=== PATIENT | male | born 1945 | race Caucasian/White ===

== ENCOUNTER 2017-09-18 09:56 | Inpatient (IN) ==
--- NOTE | 2017-09-18 10:07 | Emergency Department Note ---
Disposition Clinical Impression: History of cirrhosis, Hyperammonemia, Hepatic encephalopathy Altered mental status Qualifiers: Altered mental status type: unspecified Qualified Code(s): R41.82 - Altered mental status, unspecified Disposition: Admitted As Inpatient Condition: Good Time of Disposition: 12:02 Altered Mental Status HPI - General Chief Complaint: ED Altered Mental Status Stated Complaint: AMS Time Seen by Provider: 09/18/17 09:56 Source: patient, EMS Mode of arrival: EMS Limitations: no limitations Nursing Notes Reviewed: Yes Vital Signs Reviewed: Yes - History of Present Illness HPI Narrative: Patient is a 71-year-old male with past medical history of hypertension, hyperlipidemia, A. fib, previous CVA and TIA, cirrhosis and takes lactulose for hyperammonemia, dementia. He presents today via EMS from [facility] due to altered mental status. EMS states the patient is usually alert and oriented 3. However, today, he was not acting himself, oriented to person and place only, irritating on the floor, seemed infused above his baseline with dementia. The patient himself denies any chest pain, shortness of breath, abdominal pain. He did admit to nausea and vomiting but no diarrhea. No blood in vomit or stool. Denies any numbness, tingling, focal weakness. He does admit to generalized fatigue. He states that he feels somewhat similar to when ammonia levels have been high in the past. He does state that his nurse practitioner told him this morning that his ammonia level was high. He takes lactulose currently for high ammonia levels. Denies any recent falls. - Related Data Home Medications Medication Instructions Recorded Confirmed Cetirizine HCl [Zyrtec] 10 mg PO DAILY 03/25/15 09/18/17 Cyanocobalamin (B-12) [Vitamin B12] 1,000 mcg IM QMONTH 02/17/16 09/18/17 Ferrous Sulfate [Iron] 325 mg PO TID 02/17/16 09/18/17 Levothyroxine [Synthroid] 150 mcg PO DAILY 02/17/16 09/18/17 Levothyroxine [Synthroid] 175 mcg PO DAILY 02/17/16 09/18/17 Aspirin Enteric Coated [Aspirin EC] 81 mg PO DAILY 08/29/17 09/18/17 Cholecalciferol (D-3) [Vitamin D] 1,000 unit PO DAILY 08/29/17 09/18/17 Lactulose [Enulose] 30 ml PO TID 08/29/17 09/18/17 LevETIRAcetam [Keppra] 750 mg PO BID 08/29/17 09/18/17 Metoprolol Succinate [Toprol Xl] 12.5 mg PO BID 08/29/17 09/18/17 Omeprazole [PriLOSEC] 20 mg PO DAILY 08/29/17 09/18/17 Spironolactone [Aldactone] 75 mg PO BID 08/29/17 09/18/17 Sucralfate [Carafate] 1 gm PO QID 09/18/17 09/18/17 Previous Rx's Medication Instructions Recorded Furosemide [Lasix] 80 mg PO QAM #30 tablet 09/10/17 Rifaximin [Xifaxan] 550 mg PO BID #60 tablet 09/10/17 Allergies Allergy/AdvReac Type Severity Reaction Status Date / Time azithromycin Allergy Anaphylaxis Verified 03/25/15 14:56 ceftriaxone Allergy Anaphylaxis Verified 03/25/15 14:56 gabapentin Allergy Anaphylaxis Verified 03/25/15 14:56 All systems ED: reviewed and negative except as stated. Constitutional: Denies: fever Cardiovascular: Denies: chest pain Respiratory: Denies: cough, dyspnea Gastrointestinal: Reports: nausea, vomiting. Denies: abdominal pain, diarrhea, constipation, hematemesis, melena, hematochezia Genitourinary: Reports: frequency, other (Urinating on floor). Denies: urgency , dysuria Musculoskeletal: Denies: back pain, neck pain, arthralgia, myalgia Integumentary: Denies: rash, abrasion, lesions Neurological: Reports: other (AMS). Denies: headache, weakness, numbness, paresthesias, confusion Past Medical History - Past Medical History Attestation: Yes The following information was validated with the patient. Source: patient Medical history: Reports: arthritis, atrial fibrillation, cirrhosis, CHF, COPD, coronary artery disease, CVA, dementia, GERD, GI bleed, hyperlipidemia, hypertension, myocardial infarction, osteoporosis, pulmonary embolus, renal disease, seizures, thyroid disease, syncope, other Surgical history: Reports: angioplasty/stent, coronary bypass (CABG), pacemaker/ AICD, other Psychiatric history: Reports: no psych history, other - Social History Smoking Status: Never smoker Smokeless Tobacco Status: No Alcohol use: Reports: none Drug use: Reports: none Physical Exam - General Limitations: other (dementia) General appearance: alert, in no apparent distress, other (slow to answer questions) - Head Head exam: atraumatic, normocephalic, normal inspection - Eye Eye exam: Present: normal appearance, PERRL, EOMI - ENT ENT exam: normal exam, normal oropharynx, mucous membranes moist - Neck Neck exam: Present: normal inspection, full ROM, trachea midline. Absent: tenderness - Chest Chest inspection: Present: normal inspection, symmetric chest wall rise - Respiratory Respiratory exam: Present: normal lung sounds bilaterally - Cardiovascular Cardiovascular exam: Present: regular rate, normal rhythm, normal heart sounds - Abdominal Exam Abdominal exam: Present: soft, Non-Tender. Absent: tenderness, distention, guarding, rebound, rigidity - Extremities Exam Extremities exam: Present: normal inspection, full ROM. Absent: tenderness, pedal edema - Neurological Exam Neurological exam: Present: alert, other (Oriented to person and place but not time. Very slow to answer questions but does eventually answer them appropriately.) - Expanded Neurological Exam Patient oriented to: Present: person, place. Absent: time Speech: Present: fluid speech Cranial nerves: EOM function (II, III, IV, ): Normal, facial sensation (V): Normal, facial palsy (VII): Normal, spinal accessory function (XI): Normal, tongue deviation (XII): Normal Motor strength - LUE: 4/5 Motor strength - RUE: 4/5 Motor strength - LLE: 4/5 Motor strength - RLE: 4/5 Sensory exam upper extremity: light touch: Normal Sensory exam lower extremity: light touch: Normal Coma Scale Eye Opening: Spontaneous Coma Scale Motor Response: Obeys Commands Coma Scale Verbal Response: Confused Coma Scale Total: 14 - Psychiatric Psychiatric exam: Present: normal mood, flat affect - Skin Skin exam: Present: warm, dry, intact, other (slight jaundice) Course Course Narrative: Patient currently oriented to person and place only but not time. This is different from his usual baseline according to EMS. Patient has generalized fatigue, is very slow to answer questions. No focal weaknesses appreciated on physical exam. States that he has high ammonia levels. Currently on lactulose 3 times a day. We will obtain altered mental status workup including head CT, basic blood work, LFTs, ammonia level, urinalysis, EKG, troponin. 11:02 labs show leukopenia, acute kidney injury, mild elevation in AST. UA negative. Chest x-ray negative for any acute cardio pulmonary process. Currently waiting on ammonia level and CT the head. 12:00 CT the head was negative. Ammonia was elevated, highest that it has been in the past. We will need to admit to the hospitalist for further care due to worsening mental status, hyperammonemia, concern for hepatic encehpalopathy. Chest X-Ray 09/18/17 10:03 IMPRESSION: Stable exam. No acute cardiopulmonary findings. D/ / Suzette Scales MD / Suzette Scales MD Interpreting Provider: Suzette Scales MD Vital Signs Temperature 97.9 F 09/18/17 09:58 Pulse Rate 75 09/18/17 09:58 Respiratory Rate 14 09/18/17 09:58 Blood Pressure 150/76 09/18/17 09:58 O2 Sat by Pulse Oximetry 98 09/18/17 09:58 Temperature 97.9 F 09/18/17 15:09 Pulse Rate 63 09/18/17 15:09 Respiratory Rate 16 09/18/17 15:09 Blood Pressure 126/75 09/18/17 15:09 O2 Sat by Pulse Oximetry 94 09/18/17 15:09 Oxygen Delivery Oxygen Delivery Room Air Altered Mental Status - MDM Narrative Medical decision making narrative: Patient currently oriented to person and place only but not time. This is different from his usual baseline according to EMS. Patient has generalized fatigue, is very slow to answer questions. No focal weaknesses appreciated on physical exam. States that he has high ammonia levels. Currently on lactulose 3 times a day. We will obtain altered mental status workup including head CT, basic blood work, LFTs, ammonia level, urinalysis, EKG, troponin. 11:02 labs show leukopenia, acute kidney injury, mild elevation in AST. UA negative. Chest x-ray negative for any acute cardio pulmonary process. Currently waiting on ammonia level and CT the head. 12:00 CT the head was negative. Ammonia was elevated, highest that it has been in the past. We will need to admit to the hospitalist for further care due to worsening mental status, hyperammonemia, concern for hepatic encehpalopathy. - Medical Records Medical records reviewed: Yes I reviewed the patient's medical records. - Lab Data Lab results reviewed: Yes I reviewed the patient's lab results. Result diagrams: 09/18/17 10:17 09/18/17 10:17 Lab Results 09/18/17 09/18/17 09/18/17 Range/Units 10:11 10:17 10:17 WBC 3.2 L (4.3-11.1) K/mcL RBC 4.17 L (4.19-5.50) M/mcL Hgb 13.3 (12.9-16.9) g/dL Hct 37.3 L (37.5-50.1) % MCV 89.4 (83.0-100.0) fL MCH 31.9 (28.0-33.3) pg MCHC 35.7 H (31.6-35.5) g/dL RDW 17.5 H (11.5-14.5) % Plt Count 219 (140-400) K/mcL MPV 9.2 L (9.4-12.4) fL Immature Gran % 0.3 (0-4) % Seg Neutrophils % 42.6 % Lymphocytes % 27.3 % Monocytes % 21.3 % Eosinophils % 6.9 % Basophils % 1.6 % Neutrophils # 1.4 L (1.6-8.9) K/mcL Lymphocytes # 0.9 (0.6-4.6) K/mcL Monocytes # 0.7 (0.0-1.3) K/mcL Eosinophils # 0.2 (0.0-0.6) K/mcL Basophils # 0.1 (0.0-0.2) K/mcL Platelet Estimate Normal (Normal) PT 14.1 H (9.4-12.1) Seconds INR 1.3 APTT 39.6 H (26.0-36.0) Seconds Sodium (136-145) mEq/L Potassium (3.5-5.1) mEq/L Chloride (98-107) mEq/L Carbon Dioxide (23-29) mEq/L BUN (8-23) mg/dL Creatinine (0.70-1.30) mg/dL Est GFR ( Amer) (> 60) Est GFR (Non-Af Amer) (> 60) BUN/Creatinine Ratio (6-26) Glucose (70-105) mg/dL Calculated Osmolality (280-300) Calcium (8.6-10.3) mg/dL Total Bilirubin (0.3-1.0) mg/dL Direct Bilirubin (0.0-0.2) mg/dL Indirect Bilirubin (0.0-1.2) mg/dL AST (13-39) Units/L ALT (7-52) Units/L Alkaline Phosphatase (34-104) Units/L Ammonia (16-53) mcmol/L Troponin I (< 0.04) ng/mL Serum Total Protein (6.4-8.9) g/dL Albumin (3.5-5.7) g/dL Globulin (2.4-3.5) g/dL Albumin/Globulin Ratio (1.1-2.2) TSH (0.340-5.600) mcIU/mL Urine Color Yellow (Yellow) Urine Clarity Clear (Clear) Urine pH 6.5 (5.0-8.0) pH Units Ur Specific [place] 1.020 (1.010-1.025) Urine Protein Negative (Neg-Trace) mg/dL Urine Glucose (UA) Normal (Normal) mg/dL Urine Ketones Negative (Negative) mg/dL Urine Blood Negative (Negative) Urine Nitrite Negative (Negative) Urine Bilirubin Negative (Negative) Urine Urobilinogen Normal (Normal) mg/dL Ur Leukocyte Esterase Negative (Negative) Ur Culture Indicated? NO (NO) 09/18/17 09/18/17 Range/Units 10:17 10:50 WBC (4.3-11.1) K/mcL RBC (4.19-5.50) M/mcL Hgb (12.9-16.9) g/dL Hct (37.5-50.1) % MCV (83.0-100.0) fL MCH (28.0-33.3) pg MCHC (31.6-35.5) g/dL RDW (11.5-14.5) % Plt Count (140-400) K/mcL MPV (9.4-12.4) fL Immature Gran % (0-4) % Seg Neutrophils % % Lymphocytes % % Monocytes % % Eosinophils % % Basophils % % Neutrophils # (1.6-8.9) K/mcL Lymphocytes # (0.6-4.6) K/mcL Monocytes # (0.0-1.3) K/mcL Eosinophils # (0.0-0.6) K/mcL Basophils # (0.0-0.2) K/mcL Platelet Estimate (Normal) PT (9.4-12.1) Seconds INR APTT (26.0-36.0) Seconds Sodium 132 L (136-145) mEq/L Potassium 4.7 (3.5-5.1) mEq/L Chloride 103 (98-107) mEq/L Carbon Dioxide 20 L (23-29) mEq/L BUN 36 H (8-23) mg/dL Creatinine 1.33 H (0.70-1.30) mg/dL Est GFR ( Amer) > 60 (> 60) Est GFR (Non-Af Amer) 53 L (> 60) BUN/Creatinine Ratio 27 H (6-26) Glucose 122 H (70-105) mg/dL Calculated Osmolality 284 (280-300) Calcium 9.8 (8.6-10.3) mg/dL Total Bilirubin 1.3 H (0.3-1.0) mg/dL Direct Bilirubin 0.3 H (0.0-0.2) mg/dL Indirect Bilirubin 1.0 (0.0-1.2) mg/dL AST 52 H (13-39) Units/L ALT 38 (7-52) Units/L Alkaline Phosphatase 91 (34-104) Units/L Ammonia 123 H (16-53) mcmol/L Troponin I < 0.03 (< 0.04) ng/mL Serum Total Protein 8.4 (6.4-8.9) g/dL Albumin 3.7 (3.5-5.7) g/dL Globulin 4.7 H (2.4-3.5) g/dL Albumin/Globulin Ratio 0.8 L (1.1-2.2) TSH 0.157 L (0.340-5.600) mcIU/mL Urine Color (Yellow) Urine Clarity (Clear) Urine pH (5.0-8.0) pH Units Ur Specific [place] (1.010-1.025) Urine Protein (Neg-Trace) mg/dL Urine Glucose (UA) (Normal) mg/dL Urine Ketones (Negative) mg/dL Urine Blood (Negative) Urine Nitrite (Negative) Urine Bilirubin (Negative) Urine Urobilinogen (Normal) mg/dL Ur Leukocyte Esterase (Negative) Ur Culture Indicated? (NO) - Radiology Data Radiology results reviewed: Yes I reviewed the patient's radiology results. - EKG Data EKG attestation: Yes I reviewed and interpreted this EKG. EKG results narrative: 09/18/2017 at 10:02. Normal sinus rhythm. Rate 77. WA 175. QRS 108. QTC 386. Normal axis. ST elevation in 2, 3, aVF that is unchanged from previous EKG on 08/29/2017. Otherwise, no acute ST elevation or depression. S.B.A.R. - S.B.A.RKadi Situation: Demographics, MOA Background: Presenting Complaint, Relevant PMH, Meds, & Allergies Assessment: Vital Signs, Course and respsone to treatment, Exam Concerns, Patient/Family Expectation, Pertinant Lab Results Recommendation: Barrier(s) to disposition, Recommendation based on pending studies, treatments, or consults S.B.A.R. Report Given to: Dr. Muriel HallBKadiARicki Repor Time: 12:50 Attestation Statement - Attestation Attestation: I examined this patient and my medical decision-making was reviewed with the Resident Physician. I agree with the documented findings, disposition and treatment plan as described except to the extent set forth below. Findings consistent with hepatic encephalopathy with elevated ammonia. We will give lactulose, admit for further management.
[2017-09-18 10:35] LABS: Basophils # 0.1 K/mcL (0.0-0.2); Basophils % 1.6 %; Eosinophils # 0.2 K/mcL (0.0-0.6); Eosinophils % 6.9 %; Hematocrit 37.3 % (37.5-50.1); Hemoglobin 13.3 g/dL (12.9-16.9); Immature Granulocytes % 0.3 % (0-4); Lymphocytes # 0.9 K/mcL (0.6-4.6); Lymphocytes % 27.3 %; Mean Corpuscular HGB Conc 35.7 g/dL (31.6-35.5); Mean Corpuscular Hemoglobin 31.9 pg (28.0-33.3); Mean Corpuscular Volume 89.4 fL (83.0-100.0); Mean Platelet Volume 9.2 fL (9.4-12.4); Monocytes # 0.7 K/mcL (0.0-1.3); Monocytes % 21.3 %; Neutrophils # 1.4 K/mcL (1.6-8.9); Platelet Count 219 K/mcL (140-400); Red Blood Count 4.17 M/mcL (4.19-5.50); Red Cell Distribution Width 17.5 % (11.5-14.5); Segmented Neutrophils % 42.6 %
[2017-09-18 10:37] LABS: Bilirubin,Urine Negative (Negative); Blood,Urine Negative (Negative); Clarity,Urine Clear (Clear); Color,Urine Yellow (Yellow); Glucose,Urine (UA) Normal (Normal); Ketones,Urine Negative (Negative); Leukocyte Esterase,Urine Negative (Negative); Nitrite,Urine Negative (Negative); PH,Urine 6.5 pH Units (5.0-8.0); Protein,Urine Negative (Neg-Trace); Urobilinogen,Urine Normal (Normal)
[2017-09-18 10:43] LABS: INR 1.3; Prothrombin Time 14.1 Seconds (9.4-12.1)
[2017-09-18 10:46] LABS: Activated Partial Thrombo Time 39.6 Seconds (26.0-36.0)
[2017-09-18 10:56] LABS: Troponin I < 0.03 ng/mL (< 0.04)
[2017-09-18 11:00] LABS: Alanine Aminotransferase 38 Units/L (7-52); Albumin 3.7 g/dL (3.5-5.7); Albumin/Globulin Ratio 0.8 (1.1-2.2); Alkaline Phosphatase 91 Units/L (34-104); Aspartate Amino Transferase 52 Units/L (13-39); BUN/Creatinine Ratio 27 (6-26); Bilirubin,Direct 0.3 mg/dL (0.0-0.2); Bilirubin,Total 1.3 mg/dL (0.3-1.0); Blood Urea Nitrogen 36 mg/dL (8-23); Calcium 9.8 mg/dL (8.6-10.3); Carbon Dioxide 20 mEq/L (23-29); Chloride 103 mEq/L (98-107); Globulin 4.7 g/dL (2.4-3.5); Glucose 122 mg/dL (70-105); Osmolality,Calculated 284 (280-300); Potassium 4.7 mEq/L (3.5-5.1); Sodium 132 mEq/L (136-145); Total Protein 8.4 g/dL (6.4-8.9); eGFR For Non-African Americans 53 (> 60)
[2017-09-18 11:10] LABS: Thyroid Stimulating Hormone 0.157 mcIU/mL (0.340-5.600)
[2017-09-18] MEDS ORDERED: 0.9 % Sodium Chloride 1,000 ML IVC ONE (11:28)
[2017-09-18 11:48] LABS: Platelet Estimate Normal (Normal)
[2017-09-18] MEDS ORDERED: Naloxone 0.4 MG/ML INJ IVP PRN (16:26)
[2017-09-18] MEDS ORDERED: 0.9 % Sodium Chloride 1,000 ML IVC SCH (16:30)
[2017-09-18] MEDS: Sucralfate 1 GM TABLET PO SCH ×2 (18:30→20:00)
[2017-09-18] MEDS: *HR* Heparin 5,000 UNIT/ML VIAL SQ SCH (18:30)
[2017-09-18] MEDS: levETIRAcetam 250 MG TABLET PO SCH (20:00)
[2017-09-18] MEDS: Metoprolol XL (24 HR) Succ 25 MG TAB.ER.24H PO SCH (20:01)
[2017-09-18] MEDS: Spironolactone 25 MG TABLET PO SCH (20:01)
--- NOTE | 2017-09-18 23:43 | Internal Med History&Physical ---
Date of Encounter: 09/18/17 Time of Encounter: 21:00 Internal Medicine - H&P: HPI Chief complaint: Altered mental status Admitted From: Long-term Nursing Facility Plans for Post Hospital Care: Home History of present illness: Mr. Moran is a 71 year old male. This patient was recently hospitalized here for altered mental status secondary to hepatic encephalopathy/acute kidney injury/dehydration. He was discharged to the [facility]. He comes to us with altered mental status, again. He developed this gradually for the last 2 or 3 days. He remembers my name (Dr. Martinez). He follows my commands. He seems to be drowsy. I can see that he was taking Lasix at 80 mg daily. They increased his lactulose to 30 mL 4 times a day. They also asking for fluid restriction. The patient seems to be dehydrated. His creatinine is increased, when compared to his previous hospitalization here. His ammonia level is 123. It is also higher than before. Denies chest pain. Denies abdominal pain, nausea and vomiting. He had 2 bowel movements yesterday. He had the one in the morning today. He has not seen any blood in his stools recently. Review of systems: All 14 organ systems were reviewed by me with the patient. Positive and pertinent negative findings are listed above. The rest of organ systems is negative. Assessment and plan: The patient has developed hepatic encephalopathy likely secondary to dehydration /acute kidney injury. Will give him 1 L of normal saline. We stopped his Lasix. His lactulose will be restarted tomorrow morning. I will offer him mild fluid restriction of 1800 mL per day. We will check his CBC, BMP, magnesium and ammonia tomorrow morning. Past Med Surg Social Fam HX - Past Medical History Medical history: arthritis, atrial fibrillation, cirrhosis, CHF, COPD, coronary artery disease, CVA, dementia, GERD, GI bleed, hyperlipidemia, hypertension, myocardial infarction, osteoporosis, pulmonary embolus, renal disease, seizures , thyroid disease, syncope, other Additional medical history: Lupus. PE. Carpal tunnel. Vit D deficiency. Bradycardia. Dizziness. Leukopenia. Sleep Apnea. Psychiatric history: no psych history, other - Past Surgical History Surgical History: angioplasty/stent, coronary bypass (CABG), pacemaker/AICD, other - Social History Smoking Status: Never smoker Smokeless Tobacco Status: No Alcohol use: none Drug use: none - Family History Daughter Family Member Ethnicity: Non- Living Status: Still Living Hx Family Endocrine Disorder: Yes Internal Medicine - H&P: Meds Cetirizine HCl [Zyrtec] 10 mg PO DAILY 03/25/15 [History] Cyanocobalamin (B-12) [Vitamin B12] 1,000 mcg IM QMONTH 02/17/16 [History] Ferrous Sulfate [Iron] 325 mg PO TID 02/17/16 [History] Levothyroxine [Synthroid] 150 mcg PO DAILY 02/17/16 [History] Levothyroxine [Synthroid] 175 mcg PO DAILY 02/17/16 [History] Aspirin Enteric Coated [Aspirin EC] 81 mg PO DAILY 08/29/17 [History] Cholecalciferol (D-3) [Vitamin D] 1,000 unit PO DAILY 08/29/17 [History] Lactulose [Enulose] 30 ml PO TID 08/29/17 [History] LevETIRAcetam [Keppra] 750 mg PO BID 08/29/17 [History] Metoprolol Succinate [Toprol Xl] 12.5 mg PO BID 08/29/17 [History] Omeprazole [PriLOSEC] 20 mg PO DAILY 08/29/17 [History] Spironolactone [Aldactone] 75 mg PO BID 08/29/17 [History] Furosemide [Lasix] 80 mg PO QAM #30 tablet 09/10/17 [Rx] Rifaximin [Xifaxan] 550 mg PO BID #60 tablet 09/10/17 [Rx] Sucralfate [Carafate] 1 gm PO QID 09/18/17 [History] 3 Allergy/AdvReac Type Severity Reaction Status Date / Time azithromycin Allergy Anaphylaxis Verified 03/25/15 14:56 ceftriaxone Allergy Anaphylaxis Verified 03/25/15 14:56 gabapentin Allergy Anaphylaxis Verified 03/25/15 14:56 All Systems PM: A 10-system review of systems was performed and is negative for pertinent findings except as documented above in the HPI. - Constitutional Vitals: Temp Pulse Resp BP Pulse Ox 98.0 F 65 15 103/60 98 09/18/17 23:01 09/18/17 23:01 09/18/17 23:01 09/18/17 23:01 09/18/17 23:01 - Other Additional findings: Skin: Free of rash and discoloration. Eyes: Sclera is white. There is no discharge from eyes. ENMT: Oral/pharyngeal mucosa is normal in appearance. There is no discharge from nose or ears. Respiratory: Normal breath sounds with no crackles and wheezes bilaterally. CV: Heart is regular with no gallop or murmur. GI: Abdomen is flat and soft with no palpable mass or visceromegaly. : There is no tenderness in patient's flanks bilaterally. Neuro exam: He has good strength in upper and lower extremities. He has normal eye movements. He is drowsy. He is sluggish with his verbal responses. Psychiatric: He has normal affect. His thought process is appropriate to the situation. Internal Med - H&P Results - Labs CBC & Chem 7: 09/18/17 10:17 09/18/17 10:17 - Assessment and plan (1) Hepatic encephalopathy Current Visit: No Status: Acute (2) Acute kidney injury Current Visit: No Status: Acute (3) Dehydration Current Visit: Yes Status: Acute (4) Weakness Current Visit: Yes Status: Acute - Time Spent With Patient Total time spent is greater than 50% in coordination of care (as documented) at patient's floor/unit and/or counseling patient:
[2017-09-19 04:15] LABS: Basophils % 1.5 %; Eosinophils # 0.2 K/mcL (0.0-0.6); Eosinophils % 7.6 %; Hematocrit 32.7 % (37.5-50.1); Immature Granulocytes % 0.4 % (0-4); Lymphocytes # 0.9 K/mcL (0.6-4.6); Lymphocytes % 30.9 %; Mean Corpuscular HGB Conc 33.6 g/dL (31.6-35.5); Mean Corpuscular Hemoglobin 30.6 pg (28.0-33.3); Mean Corpuscular Volume 91.1 fL (83.0-100.0); Mean Platelet Volume 9.1 fL (9.4-12.4); Monocytes # 0.6 K/mcL (0.0-1.3); Monocytes % 22.9 %; Platelet Count 172 K/mcL (140-400); Red Blood Count 3.59 M/mcL (4.19-5.50); Red Cell Distribution Width 17.7 % (11.5-14.5); Segmented Neutrophils % 36.7 %
[2017-09-19 04:33] LABS: BUN/Creatinine Ratio 27 (6-26); Blood Urea Nitrogen 35 mg/dL (8-23); Carbon Dioxide 19 mEq/L (23-29); Chloride 107 mEq/L (98-107); Glucose 91 mg/dL (70-105); Magnesium 2.1 mg/dL (1.6-2.6); Osmolality,Calculated 284 (280-300); Sodium 133 mEq/L (136-145); eGFR For Non-African Americans 55 (> 60)
[2017-09-19 04:48] LABS: Platelet Estimate Normal (Normal)
[2017-09-19] MEDS: *HR* Heparin 5,000 UNIT/ML VIAL SQ SCH ×2 (05:38→17:41)
[2017-09-19] MEDS: Spironolactone 25 MG TABLET PO SCH ×2 (07:39→20:28)
[2017-09-19] MEDS: Aspirin Enteric Coated 81 MG Tablet PO SCH (07:40)
[2017-09-19] MEDS: Lactulose Oral Soln 20 GM/30 ML UDC PO SCH ×3 (07:40→20:28)
[2017-09-19] MEDS: Sucralfate 1 GM TABLET PO SCH ×4 (07:40→20:28)
[2017-09-19] MEDS: Loratadine 10 MG TABLET PO SCH (07:40)
[2017-09-19] MEDS: levETIRAcetam 250 MG TABLET PO SCH ×2 (07:40→20:29)
[2017-09-19] MEDS: Cholecalciferol (D-3) 1,000 UNIT TABLET PO SCH (07:41)
[2017-09-19] MEDS: Metoprolol XL (24 HR) Succ 25 MG TAB.ER.24H PO SCH ×2 (07:41→20:29)
--- NOTE | 2017-09-19 16:58 | Internal Med Progress Note ---
Hospitalist Progress Note - Encounter Date of Encounter: 09/19/17 Time of Encounter: 08:00 - Subjective Interval History: patient was seen and examined at bed side he is alert, eating break fast but is not responding to the questions. he continues to eat his break fast. when asked if he has any nausea, vomiting, fever, chills, chest pain, SOB, palpitations he shakes his head no. - Exam Vitals: Temp Pulse Resp BP Pulse Ox 97.7 F 70 18 116/72 98 09/19/17 14:40 09/19/17 14:40 09/19/17 14:40 09/19/17 14:40 09/19/17 14:40 Exam: General: Patient is alert, oeating breaksfast no acute distress, Head: atraumatic, normocephalic, Eye: normal appearance, PERRL, no scleral icterus, no conjunctival injection ENT: mucous membranes moist, normal external ear exam Neck: normal inspection, trachea midline, full ROM, no carotid bruits Chest: normal inspection, symmetric chest rise Respiratory: Good respiratory effort. Bilateral breath sounds are clear without wheezing, crackles, or rhonchi. Cardiovascular: Regular rate and rhythm. s1 and s2 No clicks, rubs, gallops, or murmors. Abdomen: Bowel sounds present normoactive x-4 quadrants. Abdomen is soft, nondistended. no Epigastric tenderness. No guarding or rebound. No organomegaly noted, no fluid shift noted musculoskeletal: Spontaneously moving all extremities. Skin: warm, dry, intact. Neuro: Alert tremors in bilateral upper extremities, is not cooperative with the rest of the exam. Psych: Patient's affect is normal - Assessment and Plan (1) Encephalopathy, hepatic Current Visit: Yes Status: Acute Assessment and Plan: Secondary to known history of cirrhosis of unknown etiology Patient is not alert or oriented at time of interview has elevated ammonia level in the 123 on admission trended down to 114 CT head in the ED was negative for any acute abnormalities he had MRI earlier in august as per neurology documentation on the 30 of august levetiracetam at 750 mg twice a day continue to treat elevated ammonia level neuro checks Q4H will continue home dose lactulose and rifaximin (2) Hyperammonemia Current Visit: Yes Status: Acute Assessment and Plan: management as above problem (3) Liver cirrhosis Current Visit: No Status: Acute Assessment and Plan: Known cirrhosis of unclear etiology (vs. alcohol vs hemochromatosis, viral hepatitis (multiple tattoos), HEATON) Patient does have a history of lupus therefore an autoimmune etiology is possible Cannot rule out other etiologies including Will obtain records from [facility] (4) GERD (gastroesophageal reflux disease) Current Visit: No Status: Chronic Assessment and Plan: will continue with PPI (5) Chronic anemia Current Visit: Yes Status: Acute Assessment and Plan: H/H stable and has improve mejía compared to discharge H/h in august 2017 is s/p variceal bleed on last admission in august 2017 s/p EGD with banding of esophageal varices AVOID ASA, NSAIDs will continue DVT prophylaxis with SCDs continue Iron pills (6) Hypothyroidism Current Visit: Yes Status: Acute Assessment and Plan: is on synthroid 175 mcg and 150 mcg ? secondary to non- compliance will get endocrinology consult (7) Obesity (BMI 30-39.9) Current Visit: No Status: Chronic Assessment and Plan: nutrition consult BMI 30.4 DVT Prophylaxis: SCDS - Time Spent with Patient Total time spent is greater than 50% in coordination of care (as documented) at patient's floor/unit and/or counseling patient: Plan of Care Discussed with: case management Internal Medicine: Result - Labs CBC & Chem 7: 09/19/17 04:01 09/19/17 04:01 Labs: Short CBC 09/19/17 Range/Units 04:01 WBC 2.8 L (4.3-11.1) K/mcL Hgb 11.0 L D (12.9-16.9) g/dL Hct 32.7 L (37.5-50.1) % Plt Count 172 (140-400) K/mcL Neutrophils # 1.0 L (1.6-8.9) K/mcL BMP 09/19/17 04:01 Sodium 133 L Potassium 4.0 Chloride 107 Carbon Dioxide 19 L BUN 35 H Creatinine 1.28 Glucose 91 Calcium 9.0 - ABG Interpretation ABG results: PT/INR, D-dimer PT 14.1 Seconds (9.4-12.1) H 09/18/17 10:17 Consult Discharge Plan - Plan Referrals: [facility] [Outside] (3) Liver cirrhosis Qualifiers: Hepatic cirrhosis type: unspecified hepatic cirrhosis Ascites presence: without ascites Qualified Code(s): K74.60 - Unspecified cirrhosis of liver (4) GERD (gastroesophageal reflux disease) Qualifiers: Esophagitis presence: esophagitis presence not specified Qualified Code(s): K21.9 - Gastro-esophageal reflux disease without esophagitis (6) Hypothyroidism Qualifiers: Hypothyroidism type: acquired Qualified Code(s): E03.9 - Hypothyroidism, unspecified
--- NOTE | 2017-09-19 21:19 | Electrocardiograph Report ---
[facility] Test Date: 2017-09-18 Pat Name: Govind Moran Department: 104 Room: 3A51 Gender: M [employer] Supervisor: : 1945 Requested By: Terry Rodriguez Order Number: [id number] Reading MD: Mitch Nichols Measurements Intervals [place] Rate: 77 P: -25 AK: 175 QRS: 23 QRSD: 108 T: 34 QT: 355 QTc: 386 Interpretive Statements SINUS RHYTHM PROBABLE LATERAL MYOCARDIAL INFARCTION [35 ms Q WAVE IN I/aVL/V5/V6], PROBABLY OLD INFERIOR MYOCARDIAL INFARCTION [40+ ms Q WAVE AND/OR ST/T ABNORMALITY IN II/aVF], OF INDETERMINATE AGE WITH POSTERIOR EXTENSION Electronically Signed On 09-19-2017 5:40:46 EDT by Mitch Nichols
[2017-09-20 00:29] LABS: Basophils % 1.2 %; Eosinophils # 0.2 K/mcL (0.0-0.6); Eosinophils % 6.3 %; Hematocrit 35.8 % (37.5-50.1); Immature Granulocytes % 0.4 % (0-4); Lymphocytes # 0.8 K/mcL (0.6-4.6); Lymphocytes % 30.3 %; Mean Corpuscular HGB Conc 33.5 g/dL (31.6-35.5); Mean Corpuscular Hemoglobin 30.8 pg (28.0-33.3); Mean Platelet Volume 9.3 fL (9.4-12.4); Monocytes # 0.6 K/mcL (0.0-1.3); Monocytes % 23.2 %; Platelet Count 162 K/mcL (140-400); Red Blood Count 3.89 M/mcL (4.19-5.50); Red Cell Distribution Width 17.6 % (11.5-14.5); Segmented Neutrophils % 38.6 %
[2017-09-20 00:49] LABS: Blood Urea Nitrogen 36 mg/dL (8-23); Carbon Dioxide 16 mEq/L (23-29); Chloride 109 mEq/L (98-107); Potassium 4.4 mEq/L (3.5-5.1); Sodium 133 mEq/L (136-145)
[2017-09-20 00:50] LABS: BUN/Creatinine Ratio 28 (6-26); Calcium 9.2 mg/dL (8.6-10.3); Glucose 119 mg/dL (70-105); Osmolality,Calculated 285 (280-300); eGFR For Non-African Americans 55 (> 60)
[2017-09-20 01:14] LABS: Platelet Estimate Normal (Normal)
[2017-09-20] MEDS ORDERED: Lactulose 200 GM, Sodium Chloride IRRigation 700 ML RC ONE (07:49)
[2017-09-20] MEDS: Cholecalciferol (D-3) 1,000 UNIT TABLET PO SCH (08:55)
[2017-09-20] MEDS: Spironolactone 25 MG TABLET PO SCH ×2 (08:55→21:17)
[2017-09-20] MEDS: levETIRAcetam 250 MG TABLET PO SCH ×2 (08:55→21:17)
[2017-09-20] MEDS: Sucralfate 1 GM TABLET PO SCH ×4 (08:55→21:17)
[2017-09-20] MEDS: Loratadine 10 MG TABLET PO SCH (08:55)
[2017-09-20] MEDS: Aspirin Enteric Coated 81 MG Tablet PO SCH (08:56)
[2017-09-20] MEDS: Lactulose Oral Soln 20 GM/30 ML UDC PO SCH ×4 (08:56→21:16)
[2017-09-20] MEDS: Metoprolol XL (24 HR) Succ 25 MG TAB.ER.24H PO SCH ×2 (08:59→21:17)
[2017-09-20] MEDS ORDERED: Isovue-370 500 ML INFUS..BTL IV ONE (09:53)
--- NOTE | 2017-09-20 10:37 | Gastroenterology Consult Note ---
<Juana Del Toro M - Last Filed: 09/20/17 10:33> Date of Encounter: 09/20/17 Time of Encounter: 09:15 - Assessment and plan (1) Encephalopathy, hepatic Current Visit: Yes Status: Acute Assessment and plan: Pt presents with worsening mental status. He is on lactulose and rifaximin and ammonia continues to rise. Lactulose needs titrated to ensure 3-4 bms daily. He is getting lactulose enema today. Will check CT abdomen with contrast and labs for autoimmune hepatitis. Monitor labs, continue diuretics, follow up with Dr Pickard as outpatient when discharged. (2) History of cirrhosis Current Visit: Yes Status: Acute Assessment and plan: etiology unknown, no history of alcoholism, autoimmune labs pending (3) Hyperammonemia Current Visit: Yes Status: Acute Assessment and plan: continue lactulose and rifaximin, may need increased dose of lactulose, awaiting Ct abdomen - Time Spent With Patient Total time spent is greater than 50% in coordination of care (as documented) at patient's floor/unit and/or counseling patient: GI History of Present Illness - Data of Consult Patient: known to practice within the last 3 years Consult date: 09/20/17 Requesting Physician: Dian Carney MD - Consult Narrative Reason for consult: hepatic encephalopathy History of present illness: Mr. 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 He was recently hospitalized for upper GI bleed and had EGD. He does have a history of cirrhosis of unclear etiology. He is on lactulose and rifaximin has continued altered mental status. He reports approximately 2 bMs a day on lactulose. He denies abdominal pain, nausea, vomiting, or rectal bleeding. Ammonia has increased from 123 on admission to 187 today. He remains confused and is a poor historian. EGD 08/30/1718 Grade iII varices, banded, gastritis, gastroparesis, bleeding polyp in the antrum Past Med Surg Social Fam HX - Past Medical History Medical history: arthritis, atrial fibrillation, cirrhosis, CHF, COPD, coronary artery disease, CVA, dementia, GERD, GI bleed, hyperlipidemia, hypertension, myocardial infarction, osteoporosis, pulmonary embolus, renal disease, seizures , thyroid disease, syncope, other Additional medical history: Lupus. PE. Carpal tunnel. Vit D deficiency. Bradycardia. Dizziness. Leukopenia. Sleep Apnea. Psychiatric history: no psych history, other - Past Surgical History Surgical History: angioplasty/stent, coronary bypass (CABG), pacemaker/AICD, other - Social History Smoking Status: Never smoker Smokeless Tobacco Status: No Alcohol use: none Drug use: none - Family History Daughter Family Member Ethnicity: Non- Living Status: Still Living Hx Family Endocrine Disorder: Yes Review of Systems: GI: as per [place] GENERAL: denies fever or chills EYES: denies yellow discoloration ENT: denies pain with swallowing or difficulty swallowing CARDIO: denies chest pain, palpitations RESP: shortness of breath with exertion : denies change in color of urine NEURO: any weakness HEME: Denies any bruising MS: denies joint pain, joint swelling or back pain. DERM: denies rash or itching PSYCH: Denies history of anxiety or depression - Constitutional Vitals: Temp Pulse Resp BP Pulse Ox 97.7 F 63 18 113/63 97 09/20/17 07:09 09/20/17 07:09 09/20/17 07:09 09/20/17 07:09 09/20/17 07:09 Exam: CONSTITUTIONAL:~alert, confused, no acute distress.~HEAD:~normocephalic.~EYES:~ no jaundice.~NECK:~no obvious swelling.~HEART:~irregular rate and rhythm, no murmurs.~LUNGS:~bilateral fair air entry.~ABDOMEN:~non distended, soft, non tender, no masses palpable, no organomegaly.~RECTAL EXAM:~Deferred.~EXTREMITIES: ~no clubbing, cyanosis, trace blE edema.~SKIN:~pallor noted, no stigmata of chronic liver disease.~NEUROLOGIC:~no obvious focal defect.~~~~ Results - Labs CBC & Chem 7: 09/20/17 00:18 09/20/17 00:18 Labs: Last Result Calcium 9.2 mg/dL (8.6-10.3) 09/20/17 00:18 Troponin I < 0.03 ng/mL (< 0.04) 09/18/17 10:17 Entire Visit Hgb 12.0 g/dL (12.9-16.9) L 09/20/17 00:18 Hct 35.8 % (37.5-50.1) L 09/20/17 00:18 PT 14.1 Seconds (9.4-12.1) H 09/18/17 10:17 Total Bilirubin 1.3 mg/dL (0.3-1.0) H 09/18/17 10:17 AST 52 Units/L (13-39) H 09/18/17 10:17 ALT 38 Units/L (7-52) 09/18/17 10:17 Ammonia 187 mcmol/L (16-53) H 09/20/17 00:18 - ABG ABG results: PT/INR, D-dimer PT 14.1 Seconds (9.4-12.1) H 09/18/17 10:17 Consult Discharge Plan - Plan Referrals: [facility] [Outside] <Jefe Pickard - Last Filed: 09/20/17 13:16> Date of Encounter: 09/20/17 - Time Spent With Patient Total time spent is greater than 50% in coordination of care (as documented) at patient's floor/unit and/or counseling patient: GI History of Present Illness - Data of Consult Requesting Physician: Dian Carney MD - Consult Narrative History of present illness: Mr. Moran is a 71 year old male - Constitutional Vitals: Temp Pulse Resp BP Pulse Ox 97.7 F 70 14 115/65 98 09/20/17 12:40 09/20/17 12:40 09/20/17 12:40 09/20/17 12:40 09/20/17 12:40 Results - Labs CBC & Chem 7: 09/20/17 00:18 09/20/17 00:18 Labs: Last Result Calcium 9.2 mg/dL (8.6-10.3) 09/20/17 00:18 Ferritin 272 ng/mL (20-250) H 09/20/17 09:26 Troponin I < 0.03 ng/mL (< 0.04) 09/18/17 10:17 Entire Visit Hgb 12.0 g/dL (12.9-16.9) L 09/20/17 00:18 Hct 35.8 % (37.5-50.1) L 09/20/17 00:18 PT 14.1 Seconds (9.4-12.1) H 09/18/17 10:17 Ferritin 272 ng/mL (20-250) H 09/20/17 09:26 Total Bilirubin 1.3 mg/dL (0.3-1.0) H 09/18/17 10:17 AST 52 Units/L (13-39) H 09/18/17 10:17 ALT 38 Units/L (7-52) 09/18/17 10:17 Ammonia 187 mcmol/L (16-53) H 09/20/17 00:18 - ABG ABG results: PT/INR, D-dimer PT 14.1 Seconds (9.4-12.1) H 09/18/17 10:17 - Attending Attestation I have personally performed a face to face evaluation on this patient. I have reviewed and agree with the care plan. History and Exam by me shows: Patient seen at the bedside. Abdomen is benign does has confusion. Has known cirrhosis with esophageal varices and was recently banded. Recommendation: Continue rifaximin and lactulose and we will add zinc.
[2017-09-20 12:10] LABS: Hepatitis A Antibody IgM Nonreactive (Nonreactive); Hepatitis B Core IgM Nonreactive (Nonreactive); Hepatitis B Surface Antigen Nonreactive (Nonreactive); Hepatitis C Virus Antibody Nonreactive (Nonreactive)
--- NOTE | 2017-09-20 13:13 | Internal Med Progress Note ---
Hospitalist Progress Note - Encounter Date of Encounter: 09/20/17 Time of Encounter: 08:30 - Subjective Interval History: patient was seen and examined at bed side he is alert, eating is not responding to the questions. he continues to eat his breakfast. when asked if he has any nausea, vomiting, fever, chills, chest pain, SOB, palpitations he shakes his head no. is not verbalizing any pain. - Exam Vitals: Temp Pulse Resp BP Pulse Ox 97.7 F 70 14 115/65 98 09/20/17 12:40 09/20/17 12:40 09/20/17 12:40 09/20/17 12:40 09/20/17 12:40 Exam: General: Patient is alert, eating breaksfast no acute distress, Head: atraumatic, normocephalic, Eye: normal appearance, PERRL, no scleral icterus, no conjunctival injection ENT: mucous membranes moist, normal external ear exam Neck: normal inspection, trachea midline, full ROM, no carotid bruits Chest: normal inspection, symmetric chest rise Respiratory: Good respiratory effort. Bilateral breath sounds are clear without wheezing, crackles, or rhonchi. Cardiovascular: Regular rate and rhythm. s1 and s2 No clicks, rubs, gallops, or murmors. Abdomen: Bowel sounds present normoactive x-4 quadrants. Abdomen is soft, nondistended. no Epigastric tenderness. No guarding or rebound. No organomegaly noted, no fluid shift noted musculoskeletal: Spontaneously moving all extremities. Skin: warm, dry, intact. Neuro: Alert tremors in bilateral upper extremities, is not cooperative with the rest of the exam. Psych: Patient's affect is normal - Assessment and Plan (1) Encephalopathy, hepatic Current Visit: Yes Status: Acute Assessment and Plan: Secondary to known history of cirrhosis of unknown etiology ( see problem #3) Patient not oriented at time of interview has elevated ammonia level in the 123 on admission trended down to 114 but trended up to 180 Gi was consulted- will follow recs CT head in the ED was negative for any acute abnormalities he had MRI earlier in august as per neurology documentation on the 30 of august levetiracetam at 750 mg twice a day continue to treat elevated ammonia level neuro checks Q4H will continue home dose lactulose and rifaximin- increased dose of lactulose will give one lactulose enema (2) Hyperammonemia Current Visit: Yes Status: Acute Assessment and Plan: management as above problem (3) Liver cirrhosis Current Visit: No Status: Acute Assessment and Plan: Known cirrhosis of unclear etiology (vs. alcohol vs hemochromatosis, viral hepatitis (multiple tattoos), HEATON, autoimmune) Patient does have a history of lupus therefore an autoimmune etiology is possible Will obtain records from [facility] CT scan of the abdomen done on 09/20/17- IMPRESSION: Cirrhosis with mild splenomegaly, small caliber paraesophageal and perisplenic varices, and recannulized paraumbilical vein. No ascites. No focal liver lesion identified. GI on board will follow AFP, ALpha 1 At, SUSAN, celiac reflex, ceruloplasmin, F-actin, hemochromatosis panel, hepatitis profile, M2 ab, anca, (4) GERD (gastroesophageal reflux disease) Current Visit: No Status: Chronic Assessment and Plan: will continue with PPI (5) Chronic anemia Current Visit: Yes Status: Acute Assessment and Plan: H/H stable and has improve mejía compared to discharge H/h in august 2017 is s/p variceal bleed on last admission in august 2017 s/p EGD with banding of esophageal varices AVOID ASA, NSAIDs will continue DVT prophylaxis with SCDs continue Iron pills (6) Hypothyroidism Current Visit: Yes Status: Acute Assessment and Plan: is on synthroid 175 mcg and 150 mcg ? secondary to non- compliance will get endocrinology consult (7) Obesity (BMI 30-39.9) Current Visit: No Status: Chronic Assessment and Plan: nutrition consulted BMI 30.4 DVT Prophylaxis: scds - Time Spent with Patient Total time spent is greater than 50% in coordination of care (as documented) at patient's floor/unit and/or counseling patient: Internal Medicine: Result - Labs CBC & Chem 7: 09/20/17 00:18 09/20/17 00:18 Labs: Short CBC 09/20/17 Range/Units 00:18 WBC 2.5 L (4.3-11.1) K/mcL Hgb 12.0 L (12.9-16.9) g/dL Hct 35.8 L (37.5-50.1) % Plt Count 162 (140-400) K/mcL Neutrophils # 1.0 L (1.6-8.9) K/mcL BMP 09/20/17 00:18 Sodium 133 L Potassium 4.4 Chloride 109 H Carbon Dioxide 16 L BUN 36 H Creatinine 1.29 Glucose 119 H Calcium 9.2 - ABG Interpretation ABG results: PT/INR, D-dimer PT 14.1 Seconds (9.4-12.1) H 09/18/17 10:17 Consult Discharge Plan - Plan Referrals: [facility] [Outside] (3) Liver cirrhosis Qualifiers: Hepatic cirrhosis type: unspecified hepatic cirrhosis Ascites presence: without ascites Qualified Code(s): K74.60 - Unspecified cirrhosis of liver (4) GERD (gastroesophageal reflux disease) Qualifiers: Esophagitis presence: esophagitis presence not specified Qualified Code(s): K21.9 - Gastro-esophageal reflux disease without esophagitis (6) Hypothyroidism Qualifiers: Hypothyroidism type: acquired Qualified Code(s): E03.9 - Hypothyroidism, unspecified
[2017-09-21 04:42] LABS: Hemoglobin 11.7 g/dL (12.9-16.9); Mean Corpuscular HGB Conc 34.4 g/dL (31.6-35.5); Mean Corpuscular Hemoglobin 31.5 pg (28.0-33.3); Mean Corpuscular Volume 91.6 fL (83.0-100.0); Mean Platelet Volume 9.5 fL (9.4-12.4); Platelet Count 145 K/mcL (140-400); Red Blood Count 3.71 M/mcL (4.19-5.50); Red Cell Distribution Width 17.3 % (11.5-14.5)
[2017-09-21 04:55] LABS: BUN/Creatinine Ratio 28 (6-26); Blood Urea Nitrogen 31 mg/dL (8-23); Calcium 9.3 mg/dL (8.6-10.3); Carbon Dioxide 17 mEq/L (23-29); Chloride 110 mEq/L (98-107); Glucose 103 mg/dL (70-105); Osmolality,Calculated 287 (280-300); Potassium 4.5 mEq/L (3.5-5.1); Sodium 135 mEq/L (136-145); eGFR For Non-African Americans > 60 (> 60)
[2017-09-21 05:15] LABS: Anisocytosis 1+ (Not Present); Basophils # 0.1 K/mcL (0.0-0.2); Eosinophils # 0.1 K/mcL (0.0-0.6); Lymphocytes # 1.2 K/mcL (0.6-4.6); Monocytes # 0.2 K/mcL (0.0-1.3); Neutrophils # 1.1 K/mcL (1.6-8.9); Platelet Estimate Normal (Normal)
[2017-09-21] MEDS: Cholecalciferol (D-3) 1,000 UNIT TABLET PO SCH (08:07)
[2017-09-21] MEDS: Spironolactone 25 MG TABLET PO SCH ×2 (08:07→21:11)
[2017-09-21] MEDS: Sucralfate 1 GM TABLET PO SCH ×4 (08:07→21:12)
[2017-09-21] MEDS: Loratadine 10 MG TABLET PO SCH (08:08)
[2017-09-21] MEDS: Aspirin Enteric Coated 81 MG Tablet PO SCH (08:08)
[2017-09-21] MEDS: Lactulose Oral Soln 20 GM/30 ML UDC PO SCH ×4 (08:08→21:13)
[2017-09-21] MEDS: levETIRAcetam 250 MG TABLET PO SCH ×2 (08:08→21:12)
[2017-09-21] MEDS: Metoprolol XL (24 HR) Succ 25 MG TAB.ER.24H PO SCH ×2 (08:11→21:11)
--- NOTE | 2017-09-21 13:41 | Internal Med Progress Note ---
Hospitalist Progress Note - Encounter Date of Encounter: 09/21/17 Time of Encounter: 07:45 - Subjective Interval History: patient was seen and examined at bed side more alert, oriented to place adn himself. when asked if he has any nausea, vomiting, fever, chills, chest pain, SOB, palpitations he shakes his head no. is not verbalizing any pain. - Exam Vitals: Temp Pulse Resp BP Pulse Ox 98.2 F 68 18 130/75 98 09/21/17 11:09/21/17 11:09/21/17 11:09/21/17 11:09/21/17 11:00 Exam: General: Patient is alert, no acute distress, Head: atraumatic, normocephalic, Eye: normal appearance, PERRL, no scleral icterus, no conjunctival injection ENT: mucous membranes moist, normal external ear exam Neck: normal inspection, trachea midline, full ROM, no carotid bruits Chest: normal inspection, symmetric chest rise Respiratory: Good respiratory effort. Bilateral breath sounds are clear without wheezing, crackles, or rhonchi. Cardiovascular: Regular rate and rhythm. s1 and s2 No clicks, rubs, gallops, or murmors. Abdomen: Bowel sounds present normoactive x-4 quadrants. Abdomen is soft, nondistended. no Epigastric tenderness. No guarding or rebound. No organomegaly noted, no fluid shift noted musculoskeletal: Spontaneously moving all extremities. Skin: warm, dry, intact. Neuro: Alert oriented x 2 ( place and self, not time) mild tremors in bilateral upper extremities, is not cooperative with the rest of the exam. no facial droop, EOMI intact, tongue midline Psych: Patient's affect is normal - Assessment and Plan (1) Encephalopathy, hepatic Current Visit: Yes Status: Acute Assessment and Plan: Secondary to known history of cirrhosis of unknown etiology ( see problem #3) has elevated ammonia level in the 123 on admission trended down to 114 but trended up to 180 on 09/20/17- now 99 (mental status improved) GI on board CT head in the ED was negative for any acute abnormalities he had MRI earlier in august as per neurology documentation on the 30 of august levetiracetam at 750 mg twice a day continue to treat elevated ammonia level neuro checks Q4H will continue home dose lactulose and rifaximin- increased dose of lactulose (2) Hyperammonemia Current Visit: Yes Status: Acute Assessment and Plan: management as above problem (3) Liver cirrhosis Current Visit: No Status: Acute Assessment and Plan: Known cirrhosis of unclear etiology (vs. alcohol vs hemochromatosis, HEATON, autoimmune) Patient does have a history of lupus therefore an autoimmune etiology is possible hepatitis profile is negative Will obtain records from [facility] CT scan of the abdomen done on 09/20/17- IMPRESSION: Cirrhosis with mild splenomegaly, small caliber paraesophageal and perisplenic varices, and recannulized paraumbilical vein. No ascites. No focal liver lesion identified. GI on board will follow AFP, ALpha 1 At, SUSAN, celiac reflex, ceruloplasmin, F-actin, hemochromatosis panel, M2 ab, anca, (4) GERD (gastroesophageal reflux disease) Current Visit: No Status: Chronic Assessment and Plan: will continue with PPI (5) Chronic anemia Current Visit: Yes Status: Acute Assessment and Plan: H/H stable and has improve mejía compared to discharge H/h in august 2017 is s/p variceal bleed on last admission in august 2017 s/p EGD with banding of esophageal varices AVOID ASA, NSAIDs will continue DVT prophylaxis with SCDs continue Iron pills (6) Hypothyroidism Current Visit: Yes Status: Acute Assessment and Plan: is on synthroid 175 mcg and 150 mcg - will reduce the synthroid dose T4 is elevated and TSH is suppressed ? secondary to non- compliance will get endocrinology consult (7) Obesity (BMI 30-39.9) Current Visit: No Status: Chronic Assessment and Plan: nutrition consulted BMI 30.4 DVT Prophylaxis: scds - Time Spent with Patient Total time spent is greater than 50% in coordination of care (as documented) at patient's floor/unit and/or counseling patient: Plan of Care Discussed with: patient (s) Internal Medicine: Result - Labs CBC & Chem 7: 09/21/17 04:19 09/21/17 04:19 Labs: Short CBC 09/21/17 Range/Units 04:19 WBC 2.6 L (4.3-11.1) K/mcL Hgb 11.7 L (12.9-16.9) g/dL Hct 34.0 L (37.5-50.1) % Plt Count 145 (140-400) K/mcL Neutrophils # 1.1 L (1.6-8.9) K/mcL BMP 09/21/17 04:19 Sodium 135 L Potassium 4.5 Chloride 110 H Carbon Dioxide 17 L BUN 31 H Creatinine 1.09 Glucose 103 Calcium 9.3 - ABG Interpretation ABG results: PT/INR, D-dimer PT 14.1 Seconds (9.4-12.1) H 09/18/17 10:17 - VTE Documentation of Mechanical Device: Intermittent pneumatic compression device Consult Discharge Plan - Plan Referrals: [facility] [Outside] (3) Liver cirrhosis Qualifiers: Hepatic cirrhosis type: unspecified hepatic cirrhosis Ascites presence: without ascites Qualified Code(s): K74.60 - Unspecified cirrhosis of liver (4) GERD (gastroesophageal reflux disease) Qualifiers: Esophagitis presence: esophagitis presence not specified Qualified Code(s): K21.9 - Gastro-esophageal reflux disease without esophagitis (6) Hypothyroidism Qualifiers: Hypothyroidism type: acquired Qualified Code(s): E03.9 - Hypothyroidism, unspecified
[2017-09-22 05:25] LABS: Basophils % 1.3 %; Eosinophils # 0.2 K/mcL (0.0-0.6); Eosinophils % 7.7 %; Hematocrit 33.2 % (37.5-50.1); Hemoglobin 11.2 g/dL (12.9-16.9); Lymphocytes # 0.8 K/mcL (0.6-4.6); Lymphocytes % 32.8 %; Mean Corpuscular HGB Conc 33.7 g/dL (31.6-35.5); Mean Corpuscular Hemoglobin 30.9 pg (28.0-33.3); Mean Corpuscular Volume 91.7 fL (83.0-100.0); Mean Platelet Volume 9.8 fL (9.4-12.4); Monocytes # 0.6 K/mcL (0.0-1.3); Monocytes % 23.4 %; Neutrophils # 0.8 K/mcL (1.6-8.9); Platelet Count 124 K/mcL (140-400); Red Blood Count 3.62 M/mcL (4.19-5.50); Red Cell Distribution Width 17.3 % (11.5-14.5); Segmented Neutrophils % 34.8 %
[2017-09-22 05:41] LABS: BUN/Creatinine Ratio 28 (6-26); Blood Urea Nitrogen 27 mg/dL (8-23); Calcium 9.2 mg/dL (8.6-10.3); Carbon Dioxide 18 mEq/L (23-29); Chloride 111 mEq/L (98-107); Glucose 96 mg/dL (70-105); Osmolality,Calculated 285 (280-300); Potassium 4.3 mEq/L (3.5-5.1); Sodium 135 mEq/L (136-145); eGFR For Non-African Americans > 60 (> 60)
[2017-09-22 05:47] LABS: Platelet Estimate Normal (Normal)
[2017-09-22 05:49] LABS: Reactive Lymphocytes Present (Not Present)
[2017-09-22] MEDS: Aspirin Enteric Coated 81 MG Tablet PO SCH (07:44)
[2017-09-22] MEDS: Sucralfate 1 GM TABLET PO SCH ×4 (07:44→21:53)
[2017-09-22] MEDS: levETIRAcetam 250 MG TABLET PO SCH ×2 (07:44→21:53)
[2017-09-22] MEDS: Spironolactone 25 MG TABLET PO SCH ×2 (07:44→21:53)
[2017-09-22] MEDS: Loratadine 10 MG TABLET PO SCH (07:44)
[2017-09-22] MEDS: Lactulose Oral Soln 20 GM/30 ML UDC PO SCH ×4 (07:45→21:54)
[2017-09-22] MEDS: Metoprolol XL (24 HR) Succ 25 MG TAB.ER.24H PO SCH ×2 (07:45→21:52)
[2017-09-22] MEDS: Cholecalciferol (D-3) 1,000 UNIT TABLET PO SCH (07:46)
--- NOTE | 2017-09-22 11:27 | Internal Med Progress Note ---
Hospitalist Progress Note - Encounter Date of Encounter: 09/22/17 Time of Encounter: 08:30 - Subjective Interval History: patient was seen and examined at bed side more alert, oriented to place and himself. when asked if he has any nausea, vomiting, fever, chills, chest pain, SOB, palpitations he shakes his head no. is not verbalizing any pain. waiting for his break fast - Exam Vitals: Temp Pulse Resp BP Pulse Ox 98.4 F 66 16 121/78 99 09/22/17 11:15 09/22/17 11:15 09/22/17 11:15 09/22/17 11:15 09/22/17 11:15 - Assessment and Plan (1) Encephalopathy, hepatic Current Visit: Yes Status: Acute Assessment and Plan: Secondary to known history of cirrhosis of unknown etiology ( see problem #3) has elevated ammonia level in the 123 on admission trended down to 114 but trended up to 180 on 09/20/17- now 63 (mental status improved) GI on board CT head in the ED was negative for any acute abnormalities he had MRI earlier in august as per neurology documentation on the 30 of august levetiracetam at 750 mg twice a day continue to treat elevated ammonia level neuro checks Q4H will continue home dose lactulose and rifaximin- increased dose of lactulose (2) Hyperammonemia Current Visit: Yes Status: Acute Assessment and Plan: management as above problem (3) Liver cirrhosis Current Visit: No Status: Acute Assessment and Plan: Known cirrhosis of unclear etiology (vs. alcohol vs hemochromatosis, HEATON, autoimmune) Patient does have a history of lupus therefore an autoimmune etiology is possible hepatitis profile is negative Will obtain records from [facility] CT scan of the abdomen done on 09/20/17- IMPRESSION: Cirrhosis with mild splenomegaly, small caliber paraesophageal and perisplenic varices, and recannulized paraumbilical vein. No ascites. No focal liver lesion identified. GI on board will follow AFP, ALpha 1 At, SUSAN, celiac reflex, ceruloplasmin, F-actin, hemochromatosis panel, M2 ab, anca, (4) GERD (gastroesophageal reflux disease) Current Visit: No Status: Chronic Assessment and Plan: will continue with PPI (5) Chronic anemia Current Visit: Yes Status: Acute Assessment and Plan: H/H stable and has improve mejía compared to discharge H/h in august 2017 is s/p variceal bleed on last admission in august 2017 s/p EGD with banding of esophageal varices AVOID ASA, NSAIDs will continue DVT prophylaxis with SCDs continue Iron pills (6) Hypothyroidism Current Visit: Yes Status: Acute Assessment and Plan: is on synthroid 175 mcg and 150 mcg - will reduce the synthroid dose T4 is elevated and TSH is suppressed ? secondary to non- compliance will get endocrinology consult (7) Obesity (BMI 30-39.9) Current Visit: No Status: Chronic Assessment and Plan: nutrition consulted BMI 30.4 DVT Prophylaxis: as above - Time Spent with Patient Total time spent is greater than 50% in coordination of care (as documented) at patient's floor/unit and/or counseling patient: Plan of Care Discussed with: patient Internal Medicine: Result - Labs CBC & Chem 7: 09/22/17 05:07 09/22/17 05:07 Labs: Short CBC 09/22/17 Range/Units 05:07 WBC 2.4 L (4.3-11.1) K/mcL Hgb 11.2 L (12.9-16.9) g/dL Hct 33.2 L (37.5-50.1) % Plt Count 124 L (140-400) K/mcL Neutrophils # 0.8 L (1.6-8.9) K/mcL BMP 09/22/17 05:07 Sodium 135 L Potassium 4.3 Chloride 111 H Carbon Dioxide 18 L BUN 27 H Creatinine 0.96 Glucose 96 Calcium 9.2 - ABG Interpretation ABG results: PT/INR, D-dimer PT 14.1 Seconds (9.4-12.1) H 09/18/17 10:17 - VTE Documentation of Mechanical Device: Intermittent pneumatic compression device Consult Discharge Plan - Plan Referrals: [facility] [Outside] (3) Liver cirrhosis Qualifiers: Hepatic cirrhosis type: unspecified hepatic cirrhosis Ascites presence: without ascites Qualified Code(s): K74.60 - Unspecified cirrhosis of liver (4) GERD (gastroesophageal reflux disease) Qualifiers: Esophagitis presence: esophagitis presence not specified Qualified Code(s): K21.9 - Gastro-esophageal reflux disease without esophagitis (6) Hypothyroidism Qualifiers: Hypothyroidism type: acquired Qualified Code(s): E03.9 - Hypothyroidism, unspecified
--- NOTE | 2017-09-22 17:00 | Discharge Summary ---
- NOTES TO OUTPATIENT PROVIDER Notes to Outpatient Provider: with GI for the cirrhosis labs that were sent. continue lactulose adn rifaximin and ensure 3-4 BM per day Orders not resulted at time of discharge: Pending orders 09/20/17 09:26 AFP Tumor Marker Non- Routine SUSAN IgG EMILY rflx IFA Routine Alpha-1-AT Deficiency Reflex Routine Celiac Disease Reflex Moran Routine Ceruloplasmin Routine F-Actin IgG Reflex Sm Muscle Routine Hemochromatosis 3 Mutatations Routine MPO/PR3 (ANCA) Antibodies Routine Mitochondrial M2 Antibody, IgG Routine Saccharomyces cerevisiae Abs Routine 09/23/17 04:00 Ammonia AM 0400 BMP [Basic Metabolic Panel] AM 0400 Complete Blood Count [HEME] AM 0400 09/24/17 04:00 Ammonia AM 0400 BMP [Basic Metabolic Panel] AM 0400 Complete Blood Count [HEME] AM 0400 Date of Encounter: 09/26/17 Time of Encounter: 11:17 - Discharge Diagnosis (1) Encephalopathy, hepatic Priority: Primary Status: Acute (2) Hyperammonemia Priority: Secondary Status: Acute (3) Liver cirrhosis Priority: Secondary Status: Acute Qualifiers: Hepatic cirrhosis type: unspecified hepatic cirrhosis Ascites presence: without ascites Qualified Code(s): K74.60 - Unspecified cirrhosis of liver (4) GERD (gastroesophageal reflux disease) Priority: Secondary Status: Chronic Qualifiers: Esophagitis presence: esophagitis presence not specified Qualified Code(s) : K21.9 - Gastro-esophageal reflux disease without esophagitis (5) Chronic anemia Priority: Secondary Status: Acute (6) Hypothyroidism Priority: Secondary Status: Acute Qualifiers: Hypothyroidism type: acquired Qualified Code(s): E03.9 - Hypothyroidism, unspecified (7) Obesity (BMI 30-39.9) Priority: Secondary Status: Chronic Hospital course: Mr. Moran is a 71 year old male with history of cirrhosis due to unknown etiology, PAF not on AC, CHF, CVA, COPD, dementia presented to the ED with complaint of AMS. This patient was recently hospitalized here for altered mental status secondary to hepatic encephalopathy/acute kidney injury/dehydration. He was discharged to the [facility]. He comes to us with altered mental status, again. CT head was done in the Ed and was negative for any acute intracranial abnormalities. He developed this gradually for the last 2 or 3 days. in the ED ammonia was found to be 123 which trended up to 187. he was treated with lactulose, rifaximin and lactulose enema with improvement in ammonia. Gi was conusulted and since etiology of his cirrhosis is unknown, hepatitis panel was sent which was negative. Ct A/P was performed ( results above) in addition to hepatitis panel, AFP, ALpha 1 At, SUSAN, celiac reflex, ceruloplasmin , F-actin, hemochromatosis panel, M2 ab, anca was sent and in process. he was told to follow up with GI and follow up with lab results that were sent hi smental status improved PT/OT was consulted and recs followed. Ct abdomen: IMPRESSION: Cirrhosis with mild splenomegaly, small caliber paraesophageal and perisplenic varices, and recannulized paraumbilical vein. No ascites. No focal liver lesion identified. Ct head: IMPRESSION: No acute intracranial abnormality. EGD 08/30/1718 Grade iII varices, banded, gastritis, gastroparesis, bleeding polyp in the antrum Discharge discussed with: patient, nurse (25), social work, case management - Time Spent with Patient Total time spent providing and/or coordinating discharge services: Less than 30 minutes - Discharge Medications Prescriptions: Furosemide [Lasix] 40 mg PO DAILY #30 tablet Home Medications: Cetirizine HCl [Zyrtec] 10 mg PO DAILY 03/25/15 [History] Cyanocobalamin (B-12) [Vitamin B12] 1,000 mcg IM QMONTH 02/17/16 [History] Ferrous Sulfate [Iron] 325 mg PO TID 02/17/16 [History] Levothyroxine [Synthroid] 150 mcg PO DAILY 02/17/16 [History] Levothyroxine [Synthroid] 175 mcg PO DAILY 02/17/16 [History] Aspirin Enteric Coated [Aspirin EC] 81 mg PO DAILY 08/29/17 [History] Cholecalciferol (D-3) [Vitamin D] 1,000 unit PO DAILY 08/29/17 [History] LevETIRAcetam [Keppra] 750 mg PO BID 08/29/17 [History] Metoprolol Succinate [Toprol Xl] 12.5 mg PO BID 08/29/17 [History] Omeprazole [PriLOSEC] 20 mg PO DAILY 08/29/17 [History] Spironolactone [Aldactone] 75 mg PO BID 08/29/17 [History] Rifaximin [Xifaxan] 550 mg PO BID #60 tablet 09/10/17 [Rx] Sucralfate [Carafate] 1 gm PO QID 09/18/17 [History] Furosemide [Lasix] 40 mg PO DAILY #30 tablet 09/24/17 [Rx] Lactulose 30 gm PO QID udc 09/24/17 [Rx] Allergies/Adverse Reactions: 3 Allergy/AdvReac Type Severity Reaction Status Date / Time azithromycin Allergy Anaphylaxis Verified 03/25/15 14:56 ceftriaxone Allergy Anaphylaxis Verified 03/25/15 14:56 gabapentin Allergy Anaphylaxis Verified 03/25/15 14:56 Date of admission: 09/18/17 16:26 [facility] care physician: [facility] Consults: 09/19/17 11:41 Consult to Physical Therapy [CONS] Routine Comment: Evaluate, develop and implement POC Reason for Consult: Patient would like to return to ECF to complete short term rehab. Reports increased weakness. Eval needed for ins auth. Does patient have active BEDREST order?: No Is patient medically & hemodynamically stable?: Yes Patient assessed for mobility or mobilized this visit?: No 09/19/17 11:42 Consult to Occupational Therapy [CONS] Routine Comment: Evaluate, develop and implement POC Reason for Consult: Patient would like to return to ECF to complete short term rehab. Reports increased weakness. Eval needed for ins auth. Does patient have active BEDREST order?: No Is patient medically & hemodynamically stable?: Yes Patient assessed for mobility or mobilized this visit?: No 09/19/17 17:37 Consult to Endocrinology [CONS] Routine Consulting Provider: [facility] [place] Reason for Consult: is on synthroid 175 mcg and 150 mcg for hypothyroidism Call Completed: No 09/20/17 07:48 Consult to Gastroenterology [CONS] Routine Consulting Provider: [facility] [place] Reason for Consult: elevated ammonia despite treating with lactulose and rifaximin Call Completed: No - Constitutional Vitals: Temp Pulse Resp BP Pulse Ox 98.2 F 68 15 123/80 98 09/22/17 16:03 09/22/17 16:03 09/22/17 16:03 09/22/17 16:03 09/22/17 16:03 Exam: Exam: General: Patient is alert, no acute distress, Head: atraumatic, normocephalic, Eye: normal appearance, PERRL, no scleral icterus, no conjunctival injection ENT: mucous membranes moist, normal external ear exam Neck: normal inspection, trachea midline, full ROM, no carotid bruits Chest: normal inspection, symmetric chest rise Respiratory: Good respiratory effort. Bilateral breath sounds are clear without wheezing, crackles, or rhonchi. Cardiovascular: Regular rate and rhythm. s1 and s2 No clicks, rubs, gallops, or murmors. Abdomen: Bowel sounds present normoactive x-4 quadrants. Abdomen is soft, nondistended. no Epigastric tenderness. No guarding or rebound. No organomegaly noted, no fluid shift noted musculoskeletal: Spontaneously moving all extremities. Skin: warm, dry, intact. Neuro: Alert oriented x 2 ( place and self, not time) mild tremors in bilateral upper extremities, is not cooperative with the rest of the exam. no facial droop, EOMI intact, tongue midline Psych: Patient's affect is normal - Patient Status Disposition: Transfer SNF Condition: Fair Overall status at discharge: patient is progressing back to baseline - Discharge Instructions Follow Up With: [facility] [Outside] Jefe Pickard MD [Partnered Physician] - - Diet and Activity Activity: as per physical therapy, increase activity as tolerated Diet: low salt diet - VTE Documentation of Mechanical Device: Intermittent pneumatic compression device
[2017-09-23 05:04] LABS: Basophils % 1.3 %; Eosinophils # 0.2 K/mcL (0.0-0.6); Eosinophils % 6.8 %; Hematocrit 33.8 % (37.5-50.1); Hemoglobin 11.8 g/dL (12.9-16.9); Immature Granulocytes % 0.4 % (0-4); Lymphocytes # 0.8 K/mcL (0.6-4.6); Lymphocytes % 33.6 %; Mean Corpuscular HGB Conc 34.9 g/dL (31.6-35.5); Mean Corpuscular Volume 91.6 fL (83.0-100.0); Mean Platelet Volume 9.9 fL (9.4-12.4); Monocytes # 0.6 K/mcL (0.0-1.3); Monocytes % 25.1 %; Neutrophils # 0.8 K/mcL (1.6-8.9); Platelet Count 120 K/mcL (140-400); Red Blood Count 3.69 M/mcL (4.19-5.50); Segmented Neutrophils % 32.8 %
[2017-09-23 05:21] LABS: BUN/Creatinine Ratio 26 (6-26); Blood Urea Nitrogen 25 mg/dL (8-23); Calcium 9.2 mg/dL (8.6-10.3); Carbon Dioxide 19 mEq/L (23-29); Chloride 111 mEq/L (98-107); Glucose 103 mg/dL (70-105); Osmolality,Calculated 283 (280-300); Potassium 4.3 mEq/L (3.5-5.1); Sodium 134 mEq/L (136-145); eGFR For Non-African Americans > 60 (> 60)
[2017-09-23 05:31] LABS: Platelet Estimate Slight Decrease (Normal)
[2017-09-23] MEDS ORDERED: Lactulose 200 GM, Sodium Chloride IRRigation 700 ML RC ONE (07:18)
[2017-09-23] MEDS: levETIRAcetam 250 MG TABLET PO SCH ×2 (07:47→21:27)
[2017-09-23] MEDS: Lactulose Oral Soln 20 GM/30 ML UDC PO SCH ×4 (07:47→21:26)
[2017-09-23] MEDS: Spironolactone 25 MG TABLET PO SCH ×2 (07:47→21:27)
[2017-09-23] MEDS: Aspirin Enteric Coated 81 MG Tablet PO SCH (07:48)
[2017-09-23] MEDS: Metoprolol XL (24 HR) Succ 25 MG TAB.ER.24H PO SCH ×2 (07:48→21:26)
[2017-09-23] MEDS: Sucralfate 1 GM TABLET PO SCH ×4 (07:48→21:27)
[2017-09-23] MEDS: Cholecalciferol (D-3) 1,000 UNIT TABLET PO SCH (07:48)
[2017-09-23] MEDS: Loratadine 10 MG TABLET PO SCH (07:48)
[2017-09-23] MEDS ORDERED: Lactulose Oral Soln 20 GM/30 ML UDC PO ONE (07:55)
[2017-09-23 08:00] LABS: AFP Tumor Marker Non-Pregnant 10 ng/mL (0-9)
[2017-09-23 08:20] LABS: ANA IgG by ELISA DETECTED (None Detected); F-Actin (sm muscle) Ab IgG 13 Units (0-19); Immunoglobulin A (CELIAC) 660 mg/dL (68-408); Saccharomyces cerevisiae IgA 41.4 Units (0.0-24.9); Tissue Transglutaminase IgA 1 U/mL (0-3)
--- NOTE | 2017-09-23 15:15 | Internal Med Progress Note ---
Hospitalist Progress Note - Encounter Date of Encounter: 09/23/17 Time of Encounter: 15:13 - Subjective Interval History: patient was seen and examined at bed side more alert, oriented to place and himself. when asked if he has any nausea, vomiting, fever, chills, chest pain, SOB, palpitations he shakes his head no. is not verbalizing any pain. - Exam Vitals: Temp Pulse Resp BP Pulse Ox 98.5 F 71 16 103/66 97 09/23/17 09:00 09/23/17 09:00 09/23/17 09:00 09/23/17 09:00 09/23/17 09:00 Exam: General: Patient is alert, no acute distress, Head: atraumatic, normocephalic, Eye: normal appearance, PERRL, no scleral icterus, no conjunctival injection ENT: mucous membranes moist, normal external ear exam Neck: normal inspection, trachea midline, full ROM, no carotid bruits Chest: normal inspection, symmetric chest rise Respiratory: Good respiratory effort. Bilateral breath sounds are clear without wheezing, crackles, or rhonchi. Cardiovascular: Regular rate and rhythm. s1 and s2 No clicks, rubs, gallops, or murmors. Abdomen: Bowel sounds present normoactive x-4 quadrants. Abdomen is soft, nondistended. no Epigastric tenderness. No guarding or rebound. No organomegaly noted, no fluid shift noted musculoskeletal: Spontaneously moving all extremities. Skin: warm, dry, intact. Neuro: Alert oriented x 2 ( place and self, not time) mild tremors in bilateral upper extremities, is not cooperative with the rest of the exam. no facial droop, EOMI intact, tongue midline Psych: Patient's affect is normal - Assessment and Plan (1) Encephalopathy, hepatic Current Visit: Yes Status: Acute Assessment and Plan: Secondary to known history of cirrhosis of unknown etiology ( see problem #3) has elevated ammonia level which trended down and then it trended up again to 106 on 09/23/[address] head in the ED was negative for any acute abnormalities he had MRI earlier in august as per neurology documentation on the 30 of august levetiracetam at 750 mg twice a day continue to treat elevated ammonia level neuro checks Q4H will continue home dose lactulose and rifaximin- increased dose of lactulose will give extra lactulose dose today - he is refusing lactulose enema (2) Hyperammonemia Current Visit: Yes Status: Acute Assessment and Plan: management as above problem (3) Liver cirrhosis Current Visit: No Status: Acute Assessment and Plan: Known cirrhosis of unclear etiology (vs. alcohol vs hemochromatosis, HEATON, autoimmune) Patient does have a history of lupus therefore an autoimmune etiology is possible hepatitis profile is negative obtain records from [facility] AFP 10 cerumplasin negative SUSAN +ve S. cerevisiae +ve (IgG and IgA) GI on board CT scan of the abdomen done on 09/20/17- IMPRESSION: Cirrhosis with mild splenomegaly, small caliber paraesophageal and perisplenic varices, and recannulized paraumbilical vein. No ascites. No focal liver lesion identified. will follow , ALpha 1 At, F-actin, hemochromatosis panel, M2 ab, anca, (4) GERD (gastroesophageal reflux disease) Current Visit: No Status: Chronic Assessment and Plan: will continue with PPI (5) Chronic anemia Current Visit: Yes Status: Acute Assessment and Plan: H/H stable and has improve mejía compared to discharge H/h in august 2017 is s/p variceal bleed on last admission in august 2017 s/p EGD with banding of esophageal varices AVOID ASA, NSAIDs will continue DVT prophylaxis with SCDs continue Iron pills (6) Hypothyroidism Current Visit: Yes Status: Acute Assessment and Plan: is on synthroid 175 mcg and 150 mcg - will reduce the synthroid dose T4 is elevated and TSH is suppressed ? secondary to non- compliance endocrinology consult (7) Obesity (BMI 30-39.9) Current Visit: No Status: Chronic Assessment and Plan: nutrition consulted BMI 30.4 DVT Prophylaxis: as above - Time Spent with Patient Total time spent is greater than 50% in coordination of care (as documented) at patient's floor/unit and/or counseling patient: Plan of Care Discussed with: patient Internal Medicine: Result - Labs CBC & Chem 7: 09/23/17 04:49 09/23/17 04:49 Labs: Short CBC 09/23/17 Range/Units 04:49 WBC 2.4 L (4.3-11.1) K/mcL Hgb 11.8 L (12.9-16.9) g/dL Hct 33.8 L (37.5-50.1) % Plt Count 120 L (140-400) K/mcL Neutrophils # 0.8 L (1.6-8.9) K/mcL BMP 09/23/17 04:49 Sodium 134 L Potassium 4.3 Chloride 111 H Carbon Dioxide 19 L BUN 25 H Creatinine 0.97 Glucose 103 Calcium 9.2 - ABG Interpretation ABG results: PT/INR, D-dimer PT 14.1 Seconds (9.4-12.1) H 09/18/17 10:17 - VTE Documentation of Mechanical Device: Intermittent pneumatic compression device Consult Discharge Plan - Plan Referrals: [facility] [Outside] (3) Liver cirrhosis Qualifiers: Hepatic cirrhosis type: unspecified hepatic cirrhosis Ascites presence: without ascites Qualified Code(s): K74.60 - Unspecified cirrhosis of liver (4) GERD (gastroesophageal reflux disease) Qualifiers: Esophagitis presence: esophagitis presence not specified Qualified Code(s): K21.9 - Gastro-esophageal reflux disease without esophagitis (6) Hypothyroidism Qualifiers: Hypothyroidism type: acquired Qualified Code(s): E03.9 - Hypothyroidism, unspecified
[2017-09-24 07:19] LABS: BUN/Creatinine Ratio 25 (6-26); Blood Urea Nitrogen 25 mg/dL (8-23); Calcium 9.3 mg/dL (8.6-10.3); Carbon Dioxide 16 mEq/L (23-29); Chloride 112 mEq/L (98-107); Glucose 100 mg/dL (70-105); Osmolality,Calculated 282 (280-300); Potassium 4.3 mEq/L (3.5-5.1); Sodium 134 mEq/L (136-145); eGFR For Non-African Americans > 60 (> 60)
[2017-09-24 07:49] LABS: Hematocrit 32.9 % (37.5-50.1); Hemoglobin 11.3 g/dL (12.9-16.9); Immature Granulocytes % 0.4 % (0-4); Mean Corpuscular HGB Conc 34.3 g/dL (31.6-35.5); Red Cell Distribution Width 17.1 % (11.5-14.5)
[2017-09-24 07:50] LABS: Basophils % 1.3 %; Eosinophils # 0.2 K/mcL (0.0-0.6); Eosinophils % 8.5 %; Immature Platelets 3.1 % (1.1-6.1); Lymphocytes # 0.8 K/mcL (0.6-4.6); Lymphocytes % 33.1 %; Mean Corpuscular Hemoglobin 31.2 pg (28.0-33.3); Mean Corpuscular Volume 90.9 fL (83.0-100.0); Mean Platelet Volume 10.5 fL (9.4-12.4); Monocytes # 0.7 K/mcL (0.0-1.3); Monocytes % 30.5 %; Neutrophils # 0.6 K/mcL (1.6-8.9); Platelet Count 101 K/mcL (140-400); Red Blood Count 3.62 M/mcL (4.19-5.50); Segmented Neutrophils % 26.2 %
[2017-09-24 08:24] LABS: Platelet Estimate Decreased (Normal)
[2017-09-24 08:25] LABS: Anisocytosis 1+ (Not Present)
[2017-09-24] MEDS: Spironolactone 25 MG TABLET PO SCH (08:36)
[2017-09-24] MEDS: Sucralfate 1 GM TABLET PO SCH ×2 (08:36→12:20)
[2017-09-24] MEDS: Loratadine 10 MG TABLET PO SCH (08:36)
[2017-09-24] MEDS: Aspirin Enteric Coated 81 MG Tablet PO SCH (08:36)
[2017-09-24] MEDS: Cholecalciferol (D-3) 1,000 UNIT TABLET PO SCH (08:36)
[2017-09-24] MEDS: levETIRAcetam 250 MG TABLET PO SCH (08:36)
[2017-09-24] MEDS: Lactulose Oral Soln 20 GM/30 ML UDC PO SCH ×2 (08:37→12:20)
[2017-09-24] MEDS: Metoprolol XL (24 HR) Succ 25 MG TAB.ER.24H PO SCH (08:37)
[2017-09-24 08:51] LABS: C282Y Hemochromatosis Mutation NEGATIVE; H63D Hemochromatosis Mutation NEGATIVE; HFE Specimen Type WHOLE BLOOD; S65C Hemochromatosis Mutation NEGATIVE
--- NOTE | 2017-09-24 10:03 | Internal Med Progress Note ---
Hospitalist Progress Note - Encounter Date of Encounter: 09/24/17 Time of Encounter: 10:00 - Subjective Interval History: Patient sitting up in chair. Feels better overall. No nausea or vomiting. Tolerating diet well. Had a bowel movement earlier today. - Exam Vitals: Temp Pulse Resp BP Pulse Ox 98.1 F 72 14 131/82 97 09/24/17 07:08 09/24/17 07:08 09/24/17 07:08 09/24/17 07:08 09/24/17 07:08 Exam: General: Patient is alert, no acute distress, oriented x 3 Head: atraumatic, normocephalic, Eye: normal appearance, PERRL, no scleral icterus, no conjunctival injection ENT: mucous membranes moist, normal external ear exam Neck: normal inspection, trachea midline, full ROM, no carotid bruits Chest: normal inspection, symmetric chest rise Respiratory: Good respiratory effort. Normal breath sounds. No wheezing or crackles.. Cardiovascular: Regular rate and rhythm. s1 and s2 No clicks, rubs, gallops, or murmors. No pedal edema Abdomen: Abdomen is soft, nontender. Bowel sounds are present musculoskeletal: Spontaneously moving all extremities. Skin: warm, dry, intact. Neuro: Alert oriented x 3 normal cranial nerves, no focal deficits Psych: Patient's affect is normal - Assessment and Plan (1) Encephalopathy, hepatic Status: Acute Assessment and Plan: Improved. Ammonia level is at 75 today. Had a bowel movement this morning. Continue rifaximin and lactulose (2) Obesity (BMI 30-39.9) Status: Chronic (3) GERD (gastroesophageal reflux disease) Status: Chronic Assessment and Plan: Continue Carafate and omeprazole (4) Liver cirrhosis Status: Acute Assessment and Plan: Etiology uncertain. Could be non-alcoholic steatohepatitis related. Follow-up outpatient with GI (5) Hyperammonemia Status: Acute Assessment and Plan: Due to liver cirrhosis. Continue treatment with lactulose and rifaximin (6) Chronic anemia Status: Acute Assessment and Plan: Hemoglobin 11.3. Stable (7) Hypothyroidism Status: Acute Assessment and Plan: Continue levothyroxin DVT Prophylaxis: SCD - Time Spent with Patient Total time spent is greater than 50% in coordination of care (as documented) at patient's floor/unit and/or counseling patient: Plan of Care Discussed with: patient Internal Medicine: Result - Labs CBC & Chem 7: 09/24/17 07:32 09/24/17 06:42 Labs: Short CBC 09/24/17 Range/Units 07:32 WBC 2.4 L (4.3-11.1) K/mcL Hgb 11.3 L (12.9-16.9) g/dL Hct 32.9 L (37.5-50.1) % Plt Count 101 L (140-400) K/mcL Neutrophils # 0.6 L (1.6-8.9) K/mcL BMP 09/24/17 06:42 Sodium 134 L Potassium 4.3 Chloride 112 H Carbon Dioxide 16 L BUN 25 H Creatinine 1.02 Glucose 100 Calcium 9.3 - ABG Interpretation ABG results: PT/INR, D-dimer PT 14.1 Seconds (9.4-12.1) H 09/18/17 10:17 - VTE Documentation of Mechanical Device: Intermittent pneumatic compression device Consult Discharge Plan - Plan Referrals: [facility] [Outside] Prescriptions: Furosemide [Lasix] 40 mg PO DAILY #30 tablet (3) GERD (gastroesophageal reflux disease) Qualifiers: Esophagitis presence: esophagitis presence not specified Qualified Code(s): K21.9 - Gastro-esophageal reflux disease without esophagitis (4) Liver cirrhosis Qualifiers: Hepatic cirrhosis type: unspecified hepatic cirrhosis Ascites presence: without ascites Qualified Code(s): K74.60 - Unspecified cirrhosis of liver (7) Hypothyroidism Qualifiers: Hypothyroidism type: acquired Qualified Code(s): E03.9 - Hypothyroidism, unspecified
--- NOTE | 2017-09-24 10:18 | Physician Discharge Referral ---
ExtendedCare Referral Info Provider in Charge after Transfer: PCP Institutional Level of Care: Skilled - Diagnosis (1) Encephalopathy, hepatic Priority: Primary Status: Acute (2) Obesity (BMI 30-39.9) Priority: Secondary Status: Chronic (3) GERD (gastroesophageal reflux disease) Priority: Secondary Status: Chronic (4) Liver cirrhosis Priority: Secondary Status: Acute (5) Hyperammonemia Priority: Secondary Status: Acute (6) Chronic anemia Priority: Secondary Status: Acute (7) Hypothyroidism Priority: Secondary Status: Acute Prognosis: Fair Aware of Diagnosis: Patient Aware of Prognosis: Patient - Transfer Medications Prescriptions: Furosemide [Lasix] 40 mg PO DAILY #30 tablet Home Medications: Cetirizine HCl [Zyrtec] 10 mg PO DAILY 03/25/15 [History] Cyanocobalamin (B-12) [Vitamin B12] 1,000 mcg IM QMONTH 02/17/16 [History] Ferrous Sulfate [Iron] 325 mg PO TID 02/17/16 [History] Levothyroxine [Synthroid] 150 mcg PO DAILY 02/17/16 [History] Levothyroxine [Synthroid] 175 mcg PO DAILY 02/17/16 [History] Aspirin Enteric Coated [Aspirin EC] 81 mg PO DAILY 08/29/17 [History] Cholecalciferol (D-3) [Vitamin D] 1,000 unit PO DAILY 08/29/17 [History] LevETIRAcetam [Keppra] 750 mg PO BID 08/29/17 [History] Metoprolol Succinate [Toprol Xl] 12.5 mg PO BID 08/29/17 [History] Omeprazole [PriLOSEC] 20 mg PO DAILY 08/29/17 [History] Spironolactone [Aldactone] 75 mg PO BID 08/29/17 [History] Rifaximin [Xifaxan] 550 mg PO BID #60 tablet 09/10/17 [Rx] Sucralfate [Carafate] 1 gm PO QID 09/18/17 [History] Furosemide [Lasix] 40 mg PO DAILY #30 tablet 09/24/17 [Rx] Lactulose 30 gm PO QID udc 09/24/17 [Rx] Allergies/Adverse Reactions: 3 Allergy/AdvReac Type Severity Reaction Status Date / Time azithromycin Allergy Anaphylaxis Verified 03/25/15 14:56 ceftriaxone Allergy Anaphylaxis Verified 03/25/15 14:56 gabapentin Allergy Anaphylaxis Verified 03/25/15 14:56 - Respiratory Orders Smoking Cessation: Smoking cessation has been advised. For more information, call the [facility] [employer] Quit Line at 7-389-GCTJ-NOW. - Advance Directives Code Status: Full Code - Rehabiliation Orders Rehab Orders: Evaluation for Physical Therapy, Evaluation for Occupational Therapy - Diet Orders Cardiac CERTIFICATION: I certify that the transfer of the above named patient to an Extended Care Facility is necessary for the continuing treatment of the diagnosis listed. The above information is true and accurate reflection of patient's current condition. Confidential - Redisclosure prohibited without a patient's written consent.
[2017-09-24 10:39] VITALS: BP 131/79
[2017-09-26 23:30] LABS: A1A SZ Specimen WHOLE BLOOD; Alpha-1-Antitrypsin S Allele NEGATIVE; Alpha-1-Antitrypsin Z Allele NEGATIVE
[2017-09-27 07:43] LABS: Alpha-1-Antitrypsin 157 mg/dL (90-200)
== END 2017-09-24 14:36 | DRG 442 ==
LOC: 3ANU 09:56 → EMEROO 09:56 → 3ANU 13:36 → SUATTDRO 16:26
PROVIDERS: ADMIT Internal Medicine; ATTEND Internal Medicine

== ENCOUNTER 2019-10-20 17:57 | Inpatient (IN) ==
[2019-10-20] MEDS ORDERED: Naloxone 0.4 MG/ML INJ IVP PRN (21:55)
[2019-10-20] MEDS ORDERED: Ondansetron 4 MG/2 ML VIAL IVP PRN (21:55)
[2019-10-20 22:49] LABS: Basophils % 1.1 %; Eosinophils # 0.2 K/mcL (0.0-0.6); Eosinophils % 6.3 %; Hematocrit 31.5 % (37.5-50.1); Immature Granulocytes % 0.4 % (0-4); Lymphocytes # 0.9 K/mcL (0.6-4.6); Lymphocytes % 31.3 %; Mean Corpuscular HGB Conc 31.7 g/dL (31.6-35.5); Mean Corpuscular Hemoglobin 29.9 pg (28.0-33.3); Mean Corpuscular Volume 94.3 fL (83.0-100.0); Mean Platelet Volume 9.6 fL (9.4-12.4); Monocytes # 0.5 K/mcL (0.0-1.3); Neutrophils # 1.2 K/mcL (1.6-8.9); Platelet Count 162 K/mcL (140-400); Red Blood Count 3.34 M/mcL (4.19-5.50); Red Cell Distribution Width 14.9 % (11.5-14.5); Segmented Neutrophils % 42.9 %; White Blood Count 2.7 K/mcL (4.3-11.1)
[2019-10-20 22:51] LABS: INR 1.4; Prothrombin Time 15.7 Seconds (9.4-12.1)
[2019-10-20 23:10] LABS: Alanine Aminotransferase 34 Units/L (7-52); Albumin 2.8 g/dL (3.5-5.7); Albumin/Globulin Ratio 0.7 (1.1-2.2); Alkaline Phosphatase 88 Units/L (34-104); Aspartate Amino Transferase 66 Units/L (13-39); BUN/Creatinine Ratio 21 (6-26); Bilirubin,Total 0.7 mg/dL (0.3-1.0); Blood Urea Nitrogen 15 mg/dL (8-23); Calcium 8.5 mg/dL (8.6-10.3); Carbon Dioxide 25 mEq/L (23-29); Chloride 105 mEq/L (98-107); Globulin 4.1 g/dL (2.4-3.5); Glucose 83 mg/dL (70-105); Osmolality,Calculated 284 (280-300); Phosphorous 3.2 mg/dL (2.7-4.5); Potassium 3.5 mEq/L (3.5-5.1); Sodium 137 mEq/L (136-145); Total Protein 6.9 g/dL (6.4-8.9); eGFR For African Americans > 60 (> 60); eGFR For Non-African Americans > 60 (> 60)
[2019-10-20 23:23] LABS: Thyroid Stimulating Hormone 1.537 mcIU/mL (0.340-5.600)
[2019-10-21] MEDS ORDERED: Lactulose Oral Soln 20 GM/30 ML UDC PO ONE (01:09)
[2019-10-21] MEDS: *HR* Heparin 5,000 UNIT/ML VIAL SQ SCH ×3 (05:55→20:19)
[2019-10-21] MEDS: Aspirin Enteric Coated 325 MG Tablet PO SCH (08:16)
[2019-10-21] MEDS: Lactulose Oral Soln 20 GM/30 ML UDC PO SCH ×3 (08:16→20:20)
[2019-10-21] MEDS ORDERED: Lactulose Oral Soln 20 GM/30 ML UDC PO SCH (09:00)
[2019-10-21] MEDS: levETIRAcetam 250 MG TABLET PO SCH (14:57)
[2019-10-21] MEDS: Lactobacillus 1 EACH CAP.SPRINK PO SCH (20:19)
[2019-10-21] MEDS ORDERED: Finasteride 5 MG TABLET PO SCH (21:00)
[2019-10-22] MEDS: levETIRAcetam 250 MG TABLET PO SCH (01:52)
[2019-10-22 04:28] LABS: Estimated Average Glucose 111 mg/dl
[2019-10-22] MEDS: *HR* Heparin 5,000 UNIT/ML VIAL SQ SCH (05:56)
[2019-10-22] MEDS: Aspirin Enteric Coated 325 MG Tablet PO SCH (08:20)
[2019-10-22] MEDS: Lactulose Oral Soln 20 GM/30 ML UDC PO SCH (08:20)
[2019-10-22] MEDS: Lactobacillus 1 EACH CAP.SPRINK PO SCH (08:20)
[2019-10-22] MEDS ORDERED: Venlafaxine XR (24 HR) 75 MG CAP.ER.24H PO SCH (09:00)
[2019-10-22] MEDS ORDERED: Furosemide 40 MG TABLET PO SCH (09:00)
[2019-10-22 11:52] VITALS: BP 125/69
== END 2019-10-22 15:43 | disposition home health service (06) | DRG 441 ==
LOC: 3BNU → SUATTDRO 20:00
PROVIDERS: ADMIT Family Medicine; ATTEND Internal Medicine

== ENCOUNTER 2020-01-14 10:34 | Inpatient (IN) ==
[2020-01-14 11:08] LABS: Basophils % 1.4 %; Eosinophils # 0.2 K/mcL (0.0-0.6); Eosinophils % 6.4 %; Hematocrit 32.4 % (37.5-50.1); Hemoglobin 9.8 g/dL (12.9-16.9); Lymphocytes # 0.9 K/mcL (0.6-4.6); Lymphocytes % 30.4 %; Mean Corpuscular HGB Conc 30.2 g/dL (31.6-35.5); Mean Corpuscular Hemoglobin 27.1 pg (28.0-33.3); Mean Corpuscular Volume 89.8 fL (83.0-100.0); Mean Platelet Volume 9.7 fL (9.4-12.4); Monocytes # 0.5 K/mcL (0.0-1.3); Monocytes % 19.3 %; Neutrophils # 1.2 K/mcL (1.6-8.9); Platelet Count 128 K/mcL (140-400); Red Blood Count 3.61 M/mcL (4.19-5.50); Red Cell Distribution Width 16.4 % (11.5-14.5); Segmented Neutrophils % 42.5 %; White Blood Count 2.8 K/mcL (4.3-11.1)
[2020-01-14 11:11] LABS: INR 1.5; Prothrombin Time 16.9 Seconds (9.4-12.1)
[2020-01-14 11:14] LABS: Activated Partial Thrombo Time 38.2 Seconds (26.0-36.0)
[2020-01-14 11:25] LABS: BUN/Creatinine Ratio 20 (6-26); Blood Urea Nitrogen 16 mg/dL (8-23); Calcium 8.2 mg/dL (8.6-10.3); Carbon Dioxide 24 mEq/L (23-29); Chloride 108 mEq/L (98-107); Glucose 98 mg/dL (70-105); Osmolality,Calculated 287 (280-300); Potassium 3.5 mEq/L (3.5-5.1); Sodium 138 mEq/L (136-145); eGFR For African Americans > 60 (> 60); eGFR For Non-African Americans > 60 (> 60)
[2020-01-14] MEDS ORDERED: Acetaminophen 325 MG TABLET PO PRN (13:36)
[2020-01-14] MEDS ORDERED: Naloxone 0.4 MG/ML INJ IVP PRN (13:37)
[2020-01-14] MEDS ORDERED: Ondansetron ODT 4 MG TAB.RAPDIS SL PRN (13:38)
[2020-01-14] MEDS ORDERED: Perflutren Lipid Microsphere 1.3 ML in 0.9 % Sodium Chloride 8.7 ML IVP PRN (13:39)
[2020-01-14 19:32] LABS: Bilirubin,Urine Negative (Negative); Blood,Urine Negative (Negative); Clarity,Urine Clear (Clear); Color,Urine Yellow (Yellow); Glucose,Urine (UA) Normal (Normal); Ketones,Urine Negative (Negative); Leukocyte Esterase,Urine Negative (Negative); Nitrite,Urine Negative (Negative); PH,Urine 6.5 pH Units (5.0-8.0); Protein,Urine Negative (Neg-Trace); Specific Gravity,Urine 1.017 (1.010-1.025); Urobilinogen,Urine Normal (Normal)
[2020-01-15 01:11] LABS: Basophils % 1.3 %; Eosinophils # 0.2 K/mcL (0.0-0.6); Eosinophils % 6.4 %; Hematocrit 29.8 % (37.5-50.1); Hemoglobin 9.2 g/dL (12.9-16.9); Immature Granulocytes % 0.4 % (0-4); Lymphocytes # 0.8 K/mcL (0.6-4.6); Lymphocytes % 34.8 %; Mean Corpuscular HGB Conc 30.9 g/dL (31.6-35.5); Mean Corpuscular Hemoglobin 27.4 pg (28.0-33.3); Mean Corpuscular Volume 88.7 fL (83.0-100.0); Mean Platelet Volume 10.2 fL (9.4-12.4); Monocytes # 0.4 K/mcL (0.0-1.3); Monocytes % 17.2 %; Neutrophils # 0.9 K/mcL (1.6-8.9); Platelet Count 123 K/mcL (140-400); Red Blood Count 3.36 M/mcL (4.19-5.50); Red Cell Distribution Width 16.4 % (11.5-14.5); Segmented Neutrophils % 39.9 %; White Blood Count 2.3 K/mcL (4.3-11.1)
[2020-01-15 01:18] LABS: INR 1.5; Prothrombin Time 16.7 Seconds (9.4-12.1)
[2020-01-15 01:34] LABS: Chol/HDL Ratio 2.9 (0-4.9); Magnesium 1.9 mg/dL (1.6-2.6); Phosphorous 3.4 mg/dL (2.7-4.5)
[2020-01-15 01:46] LABS: Thyroid Stimulating Hormone 2.461 mcIU/mL (0.340-5.600)
[2020-01-15] MEDS ORDERED: Regadenoson 0.4 MG/5 ML SYRINGE IVP ONE (09:19)
[2020-01-15] MEDS: Multivit/Ca/Min/Fe/FA 1 TAB TABLET PO SCH (09:25)
[2020-01-15] MEDS: Lactobacillus 1 EACH CAP.SPRINK PO SCH ×2 (09:29→20:06)
[2020-01-15] MEDS: Venlafaxine XR (24 HR) 75 MG CAP.ER.24H PO SCH (09:30)
[2020-01-15] MEDS: levETIRAcetam 250 MG TABLET PO SCH ×2 (09:30→20:08)
[2020-01-15] MEDS: Aspirin Enteric Coated 325 MG Tablet PO SCH (09:30)
[2020-01-15] MEDS: Lactulose Oral Soln 20 GM/30 ML UDC PO SCH ×4 (09:31→20:07)
[2020-01-15] MEDS: Furosemide 40 MG TABLET PO SCH (09:31)
[2020-01-15] MEDS: *HR* Heparin 5,000 UNIT/ML VIAL SQ SCH (18:53)
[2020-01-15] MEDS: Psyllium 1 PACKET POWD.PACK PO SCH (20:08)
[2020-01-16] MEDS: *HR* Heparin 5,000 UNIT/ML VIAL SQ SCH ×2 (05:05→16:50)
[2020-01-16] MEDS ORDERED: Regadenoson 0.4 MG/5 ML SYRINGE IVP ONE (06:35)
[2020-01-16 06:59] LABS: Hematocrit 30.5 % (37.5-50.1)
[2020-01-16 07:01] LABS: Hemoglobin 9.4 g/dL (12.9-16.9); Immature Platelets 2.5 % (1.1-6.1); Mean Corpuscular HGB Conc 30.8 g/dL (31.6-35.5); Mean Corpuscular Hemoglobin 27.5 pg (28.0-33.3); Mean Corpuscular Volume 89.2 fL (83.0-100.0); Mean Platelet Volume 10.5 fL (9.4-12.4); Red Blood Count 3.42 M/mcL (4.19-5.50); Red Cell Distribution Width 16.6 % (11.5-14.5); White Blood Count 2.7 K/mcL (4.3-11.1)
[2020-01-16 07:14] LABS: BUN/Creatinine Ratio 22 (6-26); Blood Urea Nitrogen 17 mg/dL (8-23); Calcium 8.5 mg/dL (8.6-10.3); Carbon Dioxide 23 mEq/L (23-29); Chloride 110 mEq/L (98-107); Glucose 83 mg/dL (70-105); Osmolality,Calculated 285 (280-300); Potassium 3.8 mEq/L (3.5-5.1); Sodium 137 mEq/L (136-145); eGFR For African Americans > 60 (> 60); eGFR For Non-African Americans > 60 (> 60)
[2020-01-16] MEDS: Aspirin Enteric Coated 325 MG Tablet PO SCH (11:29)
[2020-01-16] MEDS: Lactulose Oral Soln 20 GM/30 ML UDC PO SCH ×4 (11:29→19:49)
[2020-01-16] MEDS: levETIRAcetam 250 MG TABLET PO SCH ×2 (11:30→19:48)
[2020-01-16] MEDS: Furosemide 40 MG TABLET PO SCH (11:30)
[2020-01-16] MEDS: Multivit/Ca/Min/Fe/FA 1 TAB TABLET PO SCH (11:30)
[2020-01-16] MEDS: Lactobacillus 1 EACH CAP.SPRINK PO SCH ×2 (11:30→19:49)
[2020-01-16] MEDS: Venlafaxine XR (24 HR) 75 MG CAP.ER.24H PO SCH (11:34)
[2020-01-16] MEDS: Psyllium 1 PACKET POWD.PACK PO SCH (19:50)
[2020-01-17] MEDS: *HR* Heparin 5,000 UNIT/ML VIAL SQ SCH ×2 (05:36→16:32)
[2020-01-17 06:19] LABS: BUN/Creatinine Ratio 21 (6-26); Blood Urea Nitrogen 17 mg/dL (8-23); Calcium 8.4 mg/dL (8.6-10.3); Carbon Dioxide 22 mEq/L (23-29); Chloride 110 mEq/L (98-107); Glucose 76 mg/dL (70-105); Osmolality,Calculated 286 (280-300); Potassium 3.9 mEq/L (3.5-5.1); Sodium 138 mEq/L (136-145); eGFR For African Americans > 60 (> 60); eGFR For Non-African Americans > 60 (> 60)
[2020-01-17] MEDS: Aspirin Enteric Coated 325 MG Tablet PO SCH (07:56)
[2020-01-17] MEDS: Venlafaxine XR (24 HR) 75 MG CAP.ER.24H PO SCH (07:57)
[2020-01-17] MEDS: Lactobacillus 1 EACH CAP.SPRINK PO SCH ×2 (07:57→20:14)
[2020-01-17] MEDS: Furosemide 40 MG TABLET PO SCH (07:57)
[2020-01-17] MEDS: Multivit/Ca/Min/Fe/FA 1 TAB TABLET PO SCH (07:57)
[2020-01-17] MEDS: levETIRAcetam 250 MG TABLET PO SCH ×2 (07:58→20:13)
[2020-01-17] MEDS: Lactulose Oral Soln 20 GM/30 ML UDC PO SCH ×4 (07:58→20:14)
[2020-01-17] MEDS: Psyllium 1 PACKET POWD.PACK PO SCH (20:14)
[2020-01-18 05:38] LABS: Hemoglobin 9.5 g/dL (12.9-16.9)
[2020-01-18 05:40] LABS: Immature Platelets 3.5 % (1.1-6.1); Mean Corpuscular HGB Conc 31.7 g/dL (31.6-35.5); Mean Corpuscular Hemoglobin 27.9 pg (28.0-33.3); Mean Platelet Volume 10.4 fL (9.4-12.4); Red Blood Count 3.41 M/mcL (4.19-5.50); Red Cell Distribution Width 16.9 % (11.5-14.5); White Blood Count 2.9 K/mcL (4.3-11.1)
[2020-01-18] MEDS: *HR* Heparin 5,000 UNIT/ML VIAL SQ SCH (05:41)
[2020-01-18 05:53] LABS: BUN/Creatinine Ratio 23 (6-26); Blood Urea Nitrogen 18 mg/dL (8-23); Calcium 8.3 mg/dL (8.6-10.3); Carbon Dioxide 21 mEq/L (23-29); Chloride 108 mEq/L (98-107); Glucose 81 mg/dL (70-105); Osmolality,Calculated 285 (280-300); Potassium 3.9 mEq/L (3.5-5.1); Sodium 137 mEq/L (136-145); eGFR For African Americans > 60 (> 60); eGFR For Non-African Americans > 60 (> 60)
[2020-01-18] MEDS: Lactobacillus 1 EACH CAP.SPRINK PO SCH (07:26)
[2020-01-18] MEDS: Venlafaxine XR (24 HR) 75 MG CAP.ER.24H PO SCH (07:27)
[2020-01-18] MEDS: Lactulose Oral Soln 20 GM/30 ML UDC PO SCH ×2 (07:27→11:54)
[2020-01-18] MEDS: Multivit/Ca/Min/Fe/FA 1 TAB TABLET PO SCH (07:27)
[2020-01-18] MEDS: Furosemide 40 MG TABLET PO SCH (07:27)
[2020-01-18] MEDS: levETIRAcetam 250 MG TABLET PO SCH (07:27)
[2020-01-18] MEDS ORDERED: Aspirin Enteric Coated 81 MG Tablet PO SCH (09:00)
[2020-01-18] MEDS ORDERED: Isosorbide MONOnitrate (24 HR) 30 MG TAB.ER.24H PO SCH (11:45)
[2020-01-18 15:18] VITALS: BP 102/62
== END 2020-01-18 16:34 | disposition home or self-care (01) | DRG 313 ==
LOC: 3BNU 10:34 → EMEROOARM 10:34 → 3BNU 12:15
PROVIDERS: ADMIT Internal Medicine; ATTEND Internal Medicine

== ENCOUNTER 2020-04-24 16:30 | Observation (INO) ==
[2020-04-24] MEDS ORDERED: *HR* Heparin 5,000 UNIT/ML VIAL IVP PRN ×2 (18:57)
[2020-04-24] MEDS ORDERED: Nitroglycerin 0.4 MG TAB.SUBL SL PRN (18:58)
[2020-04-24] MEDS ORDERED: Heparin 25,000UNIT/250ML 1/2NS 25,000 UNIT/250 ML IV.SOLN IVC SCH (19:00)
[2020-04-24] MEDS ORDERED: Naloxone 0.4 MG/ML INJ IVP PRN (19:02)
[2020-04-24] MEDS ORDERED: Ondansetron 4 MG/2 ML VIAL IVP PRN (19:02)
[2020-04-24 19:23] LABS: Basophils # 0.1 K/mcL (0.0-0.2); Basophils % 1.1 %; Eosinophils # 0.3 K/mcL (0.0-0.6); Eosinophils % 5.9 %; Hematocrit 28.9 % (37.5-50.1); Hemoglobin 8.9 g/dL (12.9-16.9); Immature Granulocytes % 0.2 % (0-4); Lymphocytes # 0.9 K/mcL (0.6-4.6); Lymphocytes % 21.4 %; Mean Corpuscular HGB Conc 30.8 g/dL (31.6-35.5); Mean Corpuscular Hemoglobin 27.6 pg (28.0-33.3); Mean Corpuscular Volume 89.5 fL (83.0-100.0); Mean Platelet Volume 10.7 fL (9.4-12.4); Monocytes # 0.7 K/mcL (0.0-1.3); Monocytes % 15.3 %; Neutrophils # 2.5 K/mcL (1.6-8.9); Platelet Count 151 K/mcL (140-400); Red Blood Count 3.23 M/mcL (4.19-5.50); Red Cell Distribution Width 17.4 % (11.5-14.5); Segmented Neutrophils % 56.1 %; White Blood Count 4.4 K/mcL (4.3-11.1)
[2020-04-24 19:31] LABS: INR 1.3; Prothrombin Time 14.6 Seconds (9.4-12.1)
[2020-04-24 19:45] LABS: BUN/Creatinine Ratio 21 (6-26); Blood Urea Nitrogen 21 mg/dL (8-23); Calcium 8.1 mg/dL (8.6-10.3); Carbon Dioxide 25 mEq/L (23-29); Chloride 105 mEq/L (98-107); Glucose 99 mg/dL (70-105); Lactate Dehydrogenase 166 Units/L (140-271); Osmolality,Calculated 289 (280-300); Potassium 3.4 mEq/L (3.5-5.1); Sodium 138 mEq/L (136-145); eGFR For African Americans > 60 (> 60); eGFR For Non-African Americans > 60 (> 60)
[2020-04-24 19:46] LABS: Troponin I 0.03 ng/mL (< 0.04)
[2020-04-24] MEDS: Lactobacillus 1 EACH CAP.SPRINK PO SCH (20:09)
[2020-04-24] MEDS: Aspirin 81 MG TAB.CHEW PO SCH (20:09)
[2020-04-24] MEDS: Lactulose Oral Soln 20 GM/30 ML UDC PO SCH (20:10)
[2020-04-24] MEDS ORDERED: Finasteride 5 MG TABLET PO SCH (21:00)
[2020-04-24] MEDS: levETIRAcetam 250 MG TABLET PO SCH (23:43)
[2020-04-25] MEDS ORDERED: *HR* Heparin 5,000 UNIT/ML VIAL SQ SCH (06:00)
[2020-04-25] MEDS: Lactobacillus 1 EACH CAP.SPRINK PO SCH (08:59)
[2020-04-25] MEDS: Aspirin 81 MG TAB.CHEW PO SCH (08:59)
[2020-04-25] MEDS: levETIRAcetam 250 MG TABLET PO SCH (08:59)
[2020-04-25] MEDS ORDERED: Venlafaxine XR (24 HR) 75 MG CAP.ER.24H PO SCH (09:00)
[2020-04-25] MEDS ORDERED: Isosorbide MONOnitrate (24 HR) 30 MG TAB.ER.24H PO SCH (09:00)
[2020-04-25] MEDS ORDERED: Furosemide 40 MG TABLET PO SCH (09:00)
[2020-04-25] MEDS: Lactulose Oral Soln 20 GM/30 ML UDC PO SCH ×2 (09:00→12:24)
[2020-04-25] MEDS ORDERED: Multivit/Ca/Min/Fe/FA 1 TAB TABLET PO SCH (09:00)
[2020-04-25 11:19] VITALS: BP 108/67
== END 2020-04-25 15:38 | disposition home or self-care (01) ==
LOC: 2ANU
PROVIDERS: ADMIT Internal Medicine; ATTEND Internal Medicine

== ENCOUNTER 2020-06-21 22:05 | Observation (INO) ==
[2020-06-21 23:14] LABS: Basophils % 0.9 %; Eosinophils # 0.2 K/mcL (0.0-0.6); Eosinophils % 9.2 %; Hematocrit 22.8 % (37.5-50.1); Hemoglobin 6.7 g/dL (12.9-16.9); Immature Granulocytes % 0.4 % (0-4); Lymphocytes # 0.6 K/mcL (0.6-4.6); Lymphocytes % 25.8 %; Mean Corpuscular HGB Conc 29.4 g/dL (31.6-35.5); Mean Corpuscular Hemoglobin 27.3 pg (28.0-33.3); Mean Corpuscular Volume 93.1 fL (83.0-100.0); Mean Platelet Volume 10.7 fL (9.4-12.4); Monocytes # 0.3 K/mcL (0.0-1.3); Monocytes % 13.1 %; Neutrophils # 1.2 K/mcL (1.6-8.9); Platelet Count 122 K/mcL (140-400); Red Blood Count 2.45 M/mcL (4.19-5.50); Red Cell Distribution Width 17.3 % (11.5-14.5); Segmented Neutrophils % 50.6 %; White Blood Count 2.3 K/mcL (4.3-11.1)
[2020-06-21] MEDS ORDERED: Pantoprazole 40 MG VIAL IVP ONE (23:21)
[2020-06-21 23:34] LABS: Alanine Aminotransferase 22 Units/L (7-52); Albumin 2.8 g/dL (3.5-5.7); Albumin/Globulin Ratio 0.7 (1.1-2.2); Alkaline Phosphatase 112 Units/L (34-104); Aspartate Amino Transferase 43 Units/L (13-39); BUN/Creatinine Ratio 15 (6-26); Bilirubin,Direct 0.2 mg/dL (0.0-0.2); Bilirubin,Indirect 0.3 mg/dL (0.0-1.0); Bilirubin,Total 0.5 mg/dL (0.3-1.0); Blood Urea Nitrogen 14 mg/dL (8-23); Calcium 7.9 mg/dL (8.6-10.3); Carbon Dioxide 24 mEq/L (23-29); Chloride 109 mEq/L (98-107); Globulin 3.9 g/dL (2.4-3.5); Glucose 116 mg/dL (70-105); Osmolality,Calculated 289 (280-300); Potassium 3.1 mEq/L (3.5-5.1); Sodium 139 mEq/L (136-145); Total Protein 6.7 g/dL (6.4-8.9); eGFR For African Americans > 60 (> 60); eGFR For Non-African Americans > 60 (> 60)
[2020-06-21 23:47] LABS: Thyroid Stimulating Hormone 7.715 mcIU/mL (0.340-5.600)
[2020-06-21 23:56] LABS: INR 1.2; Prothrombin Time 14.2 Seconds (9.4-12.1)
[2020-06-21 23:59] LABS: Activated Partial Thrombo Time 34.4 Seconds (26.0-36.0)
[2020-06-22] MEDS ORDERED: 0.9 % Sodium Chloride 250 ML ONE (00:17)
[2020-06-22] MEDS ORDERED: Potassium Chloride Elixir 20 MEQ/15 ML UDC PO ONE (01:38)
[2020-06-22] MEDS ORDERED: Furosemide 40 MG/4 ML VIAL IVP ONE (02:08)
[2020-06-22] MEDS ORDERED: Naloxone 0.4 MG/ML INJ IVP PRN (03:32)
[2020-06-22 05:29] LABS: Basophils % 1.2 %; Eosinophils # 0.2 K/mcL (0.0-0.6); Eosinophils % 8.5 %; Hematocrit 27.4 % (37.5-50.1); Hemoglobin 8.1 g/dL (12.9-16.9); Lymphocytes # 0.8 K/mcL (0.6-4.6); Lymphocytes % 29.8 %; Mean Corpuscular HGB Conc 29.6 g/dL (31.6-35.5); Mean Corpuscular Hemoglobin 26.8 pg (28.0-33.3); Mean Corpuscular Volume 90.7 fL (83.0-100.0); Mean Platelet Volume 10.1 fL (9.4-12.4); Monocytes # 0.4 K/mcL (0.0-1.3); Monocytes % 14.3 %; Neutrophils # 1.2 K/mcL (1.6-8.9); Platelet Count 131 K/mcL (140-400); Red Blood Count 3.02 M/mcL (4.19-5.50); Red Cell Distribution Width 17.2 % (11.5-14.5); Segmented Neutrophils % 46.2 %; White Blood Count 2.6 K/mcL (4.3-11.1)
[2020-06-22 05:45] LABS: Alanine Aminotransferase 23 Units/L (7-52); Albumin 2.9 g/dL (3.5-5.7); Albumin/Globulin Ratio 0.7 (1.1-2.2); Alkaline Phosphatase 112 Units/L (34-104); Aspartate Amino Transferase 49 Units/L (13-39); BUN/Creatinine Ratio 15 (6-26); Bilirubin,Total 0.8 mg/dL (0.3-1.0); Blood Urea Nitrogen 14 mg/dL (8-23); Carbon Dioxide 26 mEq/L (23-29); Chloride 109 mEq/L (98-107); Globulin 4.4 g/dL (2.4-3.5); Glucose 89 mg/dL (70-105); Magnesium 1.8 mg/dL (1.6-2.6); Osmolality,Calculated 292 (280-300); Potassium 3.3 mEq/L (3.5-5.1); Sodium 141 mEq/L (136-145); Total Protein 7.3 g/dL (6.4-8.9); eGFR For African Americans > 60 (> 60); eGFR For Non-African Americans > 60 (> 60)
[2020-06-22] MEDS: levETIRAcetam 250 MG TABLET PO SCH ×2 (06:21→17:31)
[2020-06-22] MEDS: Pantoprazole 40 MG VIAL IVP SCH ×2 (06:21→17:31)
[2020-06-22] MEDS ORDERED: Pantoprazole 40 MG VIAL IVP SCH (09:00)
[2020-06-22] MEDS: Furosemide 40 MG/4 ML VIAL IVP SCH (09:19)
[2020-06-22] MEDS: Isosorbide MONOnitrate (24 HR) 30 MG TAB.ER.24H PO SCH (09:19)
[2020-06-22] MEDS ORDERED: Nitroglycerin 0.4 MG TAB.SUBL SL PRN (09:47)
[2020-06-22 11:07] LABS: Adenovirus Not Detected (Not Detect); Coronavirus 229E Not Detected (Not Detect); Coronavirus HKU1 Not Detected (Not Detect); Coronavirus NL63 Not Detected (Not Detect); Coronavirus OC43 Not Detected (Not Detect); Human Metapneumovirus Not Detected (Not Detect); Human Rhinovirus/Enterovirus Not Detected (Not Detect); Influenza A Subtype 2009 H1 Not Detected (Not Detect); Influenza B Not Detected (Not Detect); Parainfluenza Virus 1 Not Detected (Not Detect); Parainfluenza Virus 2 Not Detected (Not Detect); Parainfluenza Virus 3 Not Detected (Not Detect); Parainfluenza Virus 4 Not Detected (Not Detect); SARS-CoV-2 Not Detected (Not Detect)
[2020-06-22 11:08] LABS: Bordetella Pertussis Not Detected (Not Detect); Chlamydophila pneumoniae Not Detected (Not Detect); Mycoplasma pneumoniae Not Detected (Not Detect); Respiratory Syncytial Virus Not Detected (Not Detect)
[2020-06-22] MEDS: Lactulose Oral Soln 20 GM/30 ML UDC PO SCH ×3 (12:06→20:18)
[2020-06-22] MEDS ORDERED: Lidocaine -MPF 2% 2 ML VIAL ONE (13:08)
[2020-06-22] MEDS ORDERED: *HR* Propofol 200 MG/20 ML VIAL IVP ONE (13:08)
[2020-06-22] MEDS: Finasteride 5 MG TABLET PO SCH (20:19)
[2020-06-22] MEDS: Lactobacillus 1 EACH CAP.SPRINK PO SCH (20:20)
[2020-06-23 02:59] LABS: Basophils % 1.3 %; Eosinophils # 0.1 K/mcL (0.0-0.6); Eosinophils % 6.1 %; Hematocrit 26.2 % (37.5-50.1); Hemoglobin 7.8 g/dL (12.9-16.9); Immature Granulocytes % 0.4 % (0-4); Lymphocytes # 0.6 K/mcL (0.6-4.6); Mean Corpuscular HGB Conc 29.8 g/dL (31.6-35.5); Mean Corpuscular Hemoglobin 26.4 pg (28.0-33.3); Mean Corpuscular Volume 88.5 fL (83.0-100.0); Mean Platelet Volume 10.2 fL (9.4-12.4); Monocytes # 0.4 K/mcL (0.0-1.3); Neutrophils # 1.1 K/mcL (1.6-8.9); Platelet Count 120 K/mcL (140-400); Red Blood Count 2.96 M/mcL (4.19-5.50); Red Cell Distribution Width 17.4 % (11.5-14.5); Segmented Neutrophils % 48.2 %; White Blood Count 2.3 K/mcL (4.3-11.1)
[2020-06-23 03:19] LABS: Alanine Aminotransferase 24 Units/L (7-52); Albumin 2.8 g/dL (3.5-5.7); Albumin/Globulin Ratio 0.7 (1.1-2.2); Alkaline Phosphatase 103 Units/L (34-104); Aspartate Amino Transferase 53 Units/L (13-39); BUN/Creatinine Ratio 17 (6-26); Bilirubin,Total 1.1 mg/dL (0.3-1.0); Blood Urea Nitrogen 16 mg/dL (8-23); Calcium 7.8 mg/dL (8.6-10.3); Carbon Dioxide 24 mEq/L (23-29); Chloride 107 mEq/L (98-107); Globulin 4.1 g/dL (2.4-3.5); Glucose 86 mg/dL (70-105); Osmolality,Calculated 284 (280-300); Potassium 3.4 mEq/L (3.5-5.1); Sodium 137 mEq/L (136-145); Total Protein 6.9 g/dL (6.4-8.9); eGFR For African Americans > 60 (> 60); eGFR For Non-African Americans > 60 (> 60)
[2020-06-23] MEDS ORDERED: GI Cocktail 40 ML EACH PO ONE (03:20)
[2020-06-23 03:26] LABS: Troponin I < 0.03 ng/mL (< 0.04)
[2020-06-23] MEDS: levETIRAcetam 250 MG TABLET PO SCH ×2 (05:15→18:06)
[2020-06-23] MEDS: Pantoprazole 40 MG VIAL IVP SCH ×2 (05:15→18:05)
[2020-06-23] MEDS ORDERED: Furosemide 40 MG/4 ML VIAL IVP ONE (05:55)
[2020-06-23] MEDS ORDERED: Perflutren Lipid Microsphere 1.3 ML in 0.9 % Sodium Chloride 8.7 ML IVP PRN (07:11)
[2020-06-23] MEDS: Multivit/Ca/Min/Fe/FA 1 TAB TABLET PO SCH (08:11)
[2020-06-23] MEDS: Lactulose Oral Soln 20 GM/30 ML UDC PO SCH ×4 (08:11→20:24)
[2020-06-23] MEDS: Cyanocobalamin (B-12) 1,000 MCG TABLET PO SCH (08:12)
[2020-06-23] MEDS: Isosorbide MONOnitrate (24 HR) 30 MG TAB.ER.24H PO SCH (08:12)
[2020-06-23] MEDS: Lactobacillus 1 EACH CAP.SPRINK PO SCH ×2 (08:12→20:25)
[2020-06-23] MEDS: Furosemide 40 MG/4 ML VIAL IVP SCH (09:48)
[2020-06-23] MEDS ORDERED: Furosemide 20 MG/2 ML VIAL IVP ONE (09:49)
[2020-06-23 12:02] LABS: % Iron Saturation 15 % (20-55); Iron 63 mcg/dL (65-175); Transferrin 292 mg/dL (203-362)
[2020-06-23 12:17] LABS: Ferritin 30 ng/mL (20-250)
[2020-06-23] MEDS: Finasteride 5 MG TABLET PO SCH (20:25)
[2020-06-24 02:05] LABS: Basophils % 0.9 %; Eosinophils # 0.1 K/mcL (0.0-0.6); Eosinophils % 3.1 %; Hematocrit 27.3 % (37.5-50.1); Hemoglobin 8.1 g/dL (12.9-16.9); Immature Granulocytes % 0.3 % (0-4); Lymphocytes # 0.8 K/mcL (0.6-4.6); Lymphocytes % 23.6 %; Mean Corpuscular HGB Conc 29.7 g/dL (31.6-35.5); Mean Corpuscular Hemoglobin 26.1 pg (28.0-33.3); Mean Corpuscular Volume 88.1 fL (83.0-100.0); Mean Platelet Volume 10.4 fL (9.4-12.4); Monocytes # 0.6 K/mcL (0.0-1.3); Monocytes % 17.4 %; Neutrophils # 1.8 K/mcL (1.6-8.9); Platelet Count 136 K/mcL (140-400); Red Cell Distribution Width 17.3 % (11.5-14.5); Segmented Neutrophils % 54.7 %; White Blood Count 3.2 K/mcL (4.3-11.1)
[2020-06-24 02:23] LABS: Alanine Aminotransferase 23 Units/L (7-52); Albumin/Globulin Ratio 0.7 (1.1-2.2); Alkaline Phosphatase 105 Units/L (34-104); Aspartate Amino Transferase 47 Units/L (13-39); BUN/Creatinine Ratio 20 (6-26); Blood Urea Nitrogen 20 mg/dL (8-23); Calcium 8.2 mg/dL (8.6-10.3); Carbon Dioxide 24 mEq/L (23-29); Chloride 108 mEq/L (98-107); Globulin 4.4 g/dL (2.4-3.5); Glucose 109 mg/dL (70-105); Osmolality,Calculated 289 (280-300); Potassium 3.3 mEq/L (3.5-5.1); Sodium 138 mEq/L (136-145); Total Protein 7.4 g/dL (6.4-8.9); eGFR For African Americans > 60 (> 60); eGFR For Non-African Americans > 60 (> 60)
[2020-06-24] MEDS: Pantoprazole 40 MG VIAL IVP SCH ×2 (05:15→16:58)
[2020-06-24] MEDS: levETIRAcetam 250 MG TABLET PO SCH ×2 (05:15→16:58)
[2020-06-24] MEDS: Lactulose Oral Soln 20 GM/30 ML UDC PO SCH ×4 (08:22→20:10)
[2020-06-24] MEDS: Multivit/Ca/Min/Fe/FA 1 TAB TABLET PO SCH (08:22)
[2020-06-24] MEDS: Lactobacillus 1 EACH CAP.SPRINK PO SCH ×2 (08:22→20:09)
[2020-06-24] MEDS: Cyanocobalamin (B-12) 1,000 MCG TABLET PO SCH (08:22)
[2020-06-24] MEDS: Furosemide 40 MG/4 ML VIAL IVP SCH (08:23)
[2020-06-24] MEDS: Finasteride 5 MG TABLET PO SCH (20:09)
[2020-06-25 01:32] LABS: Basophils % 1.5 %; Eosinophils # 0.2 K/mcL (0.0-0.6); Eosinophils % 7.3 %; Hemoglobin 8.3 g/dL (12.9-16.9); Immature Granulocytes % 0.4 % (0-4); Lymphocytes # 0.8 K/mcL (0.6-4.6); Lymphocytes % 29.9 %; Mean Corpuscular HGB Conc 29.6 g/dL (31.6-35.5); Mean Corpuscular Hemoglobin 26.5 pg (28.0-33.3); Mean Corpuscular Volume 89.5 fL (83.0-100.0); Mean Platelet Volume 10.2 fL (9.4-12.4); Monocytes # 0.5 K/mcL (0.0-1.3); Monocytes % 18.4 %; Neutrophils # 1.1 K/mcL (1.6-8.9); Platelet Count 132 K/mcL (140-400); Red Blood Count 3.13 M/mcL (4.19-5.50); Red Cell Distribution Width 17.4 % (11.5-14.5); Segmented Neutrophils % 42.5 %; White Blood Count 2.6 K/mcL (4.3-11.1)
[2020-06-25 01:53] LABS: BUN/Creatinine Ratio 21 (6-26); Blood Urea Nitrogen 20 mg/dL (8-23); Calcium 8.4 mg/dL (8.6-10.3); Carbon Dioxide 24 mEq/L (23-29); Chloride 108 mEq/L (98-107); Glucose 109 mg/dL (70-105); Osmolality,Calculated 289 (280-300); Potassium 3.6 mEq/L (3.5-5.1); Sodium 138 mEq/L (136-145); eGFR For African Americans > 60 (> 60); eGFR For Non-African Americans > 60 (> 60)
[2020-06-25] MEDS: Pantoprazole 40 MG VIAL IVP SCH (05:27)
[2020-06-25] MEDS: levETIRAcetam 250 MG TABLET PO SCH ×2 (05:27→17:59)
[2020-06-25] MEDS: Cyanocobalamin (B-12) 1,000 MCG TABLET PO SCH (08:10)
[2020-06-25] MEDS: Lactobacillus 1 EACH CAP.SPRINK PO SCH ×2 (08:10→21:38)
[2020-06-25] MEDS: Furosemide 40 MG/4 ML VIAL IVP SCH (08:10)
[2020-06-25] MEDS: Multivit/Ca/Min/Fe/FA 1 TAB TABLET PO SCH (08:10)
[2020-06-25] MEDS: Lactulose Oral Soln 20 GM/30 ML UDC PO SCH ×5 (08:11→21:38)
[2020-06-25] MEDS ORDERED: Lactulose Oral Soln 20 GM/30 ML UDC PO ONE (13:28)
[2020-06-25] MEDS: Aspirin Enteric Coated 81 MG Tablet PO SCH (17:58)
[2020-06-25] MEDS: Finasteride 5 MG TABLET PO SCH (21:39)
[2020-06-26 02:02] LABS: Eosinophils # 0.2 K/mcL (0.0-0.6); Eosinophils % 6.3 %; Hematocrit 28.6 % (37.5-50.1); Hemoglobin 8.7 g/dL (12.9-16.9); Lymphocytes % 31.7 %; Mean Corpuscular HGB Conc 30.4 g/dL (31.6-35.5); Mean Corpuscular Hemoglobin 27.2 pg (28.0-33.3); Mean Corpuscular Volume 89.4 fL (83.0-100.0); Mean Platelet Volume 10.6 fL (9.4-12.4); Monocytes # 0.5 K/mcL (0.0-1.3); Monocytes % 15.5 %; Neutrophils # 1.4 K/mcL (1.6-8.9); Platelet Count 143 K/mcL (140-400); Red Cell Distribution Width 17.5 % (11.5-14.5); Segmented Neutrophils % 45.5 %
[2020-06-26 02:14] LABS: BUN/Creatinine Ratio 20 (6-26); Blood Urea Nitrogen 20 mg/dL (8-23); Calcium 8.8 mg/dL (8.6-10.3); Carbon Dioxide 22 mEq/L (23-29); Chloride 111 mEq/L (98-107); Glucose 106 mg/dL (70-105); Osmolality,Calculated 291 (280-300); Potassium 3.8 mEq/L (3.5-5.1); Sodium 139 mEq/L (136-145); eGFR For African Americans > 60 (> 60); eGFR For Non-African Americans > 60 (> 60)
[2020-06-26] MEDS: levETIRAcetam 250 MG TABLET PO SCH (05:37)
[2020-06-26] MEDS: Lactulose Oral Soln 20 GM/30 ML UDC PO SCH ×2 (07:45→13:01)
[2020-06-26] MEDS: Furosemide 40 MG/4 ML VIAL IVP SCH (07:45)
[2020-06-26] MEDS: Cyanocobalamin (B-12) 1,000 MCG TABLET PO SCH (07:46)
[2020-06-26] MEDS: Multivit/Ca/Min/Fe/FA 1 TAB TABLET PO SCH (07:46)
[2020-06-26] MEDS: Lactobacillus 1 EACH CAP.SPRINK PO SCH (07:46)
[2020-06-26] MEDS: Aspirin Enteric Coated 81 MG Tablet PO SCH (07:46)
[2020-06-26] MEDS: Isosorbide MONOnitrate (24 HR) 30 MG TAB.ER.24H PO SCH (07:46)
[2020-06-26 11:42] VITALS: BP 103/60
[2020-06-27] MEDS ORDERED: Furosemide 40 MG TABLET PO SCH (09:00)
== END 2020-06-26 12:45 | disposition home health service (06) ==
LOC: 2ANU 22:05 → EMEROOARM 22:05 → SUATTDRO 06-22 02:16 → 2ANU 06-22 02:45
PROVIDERS: ADMIT Internal Medicine; ATTEND General Practice

== ENCOUNTER 2020-11-22 12:49 | Observation (INO) ==
[2020-11-22] MEDS ORDERED: Isovue-370 500 ML BOTTLE IVP ONE (12:55)
[2020-11-22] MEDS ORDERED: 0.9 % Sodium Chloride 1,000 ML IVC ONE (12:55)
[2020-11-22 13:16] LABS: Hematocrit 32.8 % (37.5-50.1); Mean Corpuscular HGB Conc 30.5 g/dL (31.6-35.5); Mean Corpuscular Volume 91.9 fL (83.0-100.0); Mean Platelet Volume 9.7 fL (9.4-12.4); Platelet Count 137 K/mcL (140-400); Red Blood Count 3.57 M/mcL (4.19-5.50); Red Cell Distribution Width 18.8 % (11.5-14.5); White Blood Count 9.4 K/mcL (4.3-11.1)
[2020-11-22 13:24] LABS: INR 1.4; Prothrombin Time 15.4 Seconds (9.4-12.1)
[2020-11-22 13:26] LABS: Activated Partial Thrombo Time 41.7 Seconds (26.0-36.0)
[2020-11-22 13:46] LABS: BUN/Creatinine Ratio 15 (6-26); Blood Urea Nitrogen 29 mg/dL (8-23); Carbon Dioxide 20 mEq/L (23-29); Chloride 108 mEq/L (98-107); Creatine Kinase 102 Units/L (30-223); Ethanol < 10 mg/dL (Less than 10); Glucose 108 mg/dL (70-105); Osmolality,Calculated 292 (280-300); Potassium 4.2 mEq/L (3.5-5.1); Sodium 138 mEq/L (136-145); Troponin I 0.03 ng/mL (< 0.04); eGFR For African Americans 41 (> 60); eGFR For Non-African Americans 34 (> 60)
[2020-11-22] MEDS ORDERED: Gadolinium Contrast Agent (WT Based) IV PRN (14:36)
[2020-11-22 15:28] LABS: Bacteria,Urine Few per hpf (None-Few); Bilirubin,Urine Negative (Negative); Blood,Urine Small (Negative); Clarity,Urine Clear (Clear); Color,Urine Light-Yellow (Yellow); Glucose,Urine (UA) Normal (Normal); Granular Casts,Urine Few per lpf (None Seen); Hyaline Casts,Urine Many per lpf (None Seen); Ketones,Urine Negative (Negative); Leukocyte Esterase,Urine Small (Negative); Mucus,Urine Few per lpf (None-Few); Nitrite,Urine Positive (Negative); Protein,Urine Negative (Neg-Trace); RBC,Urine 0-3 per hpf (0-3); Specific Gravity,Urine 1.019 (1.010-1.025); Squamous Epithelial Cell,Urine Few per hpf (None-Few); Transitional Epi Cells,Urine Few per hpf (None-Few); Urobilinogen,Urine Normal (Normal)
[2020-11-22 15:58] LABS: Amphetamine Screen,Urine Negative ng/mL (Cutoff=1000); Barbiturate Screen,Urine Negative ng/mL (Cutoff=200); Benzodiazepines Screen,Urine Negative ng/mL (Cutoff=200); Cannabinoid Screen,Urine Negative ng/mL (Cutoff = 50); Cocaine Screen,Urine Negative ng/mL (Cutoff= 300); Opiate Screen,Urine Negative ng/mL (Cutoff=300); Phencyclidine Screen,Urine Negative ng/mL (Cutoff=25)
[2020-11-22] MEDS ORDERED: Melatonin 3 MG TABLET PO PRN (17:07)
[2020-11-22] MEDS ORDERED: Naloxone 0.4 MG/ML INJ IVP PRN (17:07)
[2020-11-22] MEDS ORDERED: Ondansetron 4 MG/2 ML VIAL IVP PRN (17:07)
[2020-11-22] MEDS ORDERED: Ringers Solution, Lactated 1,000 ML IVC SCH (17:15)
[2020-11-22 17:57] LABS: Basophils # 0.1 K/mcL (0.0-0.2); Basophils % 0.5 %; Eosinophils # 0.1 K/mcL (0.0-0.6); Eosinophils % 1.3 %; Hematocrit 31.6 % (37.5-50.1); Hemoglobin 9.7 g/dL (12.9-16.9); Immature Granulocytes % 0.4 % (0-4); Lymphocytes # 0.9 K/mcL (0.6-4.6); Lymphocytes % 9.1 %; Mean Corpuscular HGB Conc 30.7 g/dL (31.6-35.5); Mean Corpuscular Volume 91.3 fL (83.0-100.0); Mean Platelet Volume 10.8 fL (9.4-12.4); Monocytes # 1.1 K/mcL (0.0-1.3); Neutrophils # 7.7 K/mcL (1.6-8.9); Platelet Count 113 K/mcL (140-400); Red Blood Count 3.46 M/mcL (4.19-5.50); Red Cell Distribution Width 18.9 % (11.5-14.5); Segmented Neutrophils % 77.7 %
[2020-11-22 18:02] LABS: VBG HCO3 18 mEq/L (21-27); VBG PCO2 28 mmHg (41-51); VBG PH 7.43 pH Units (7.32-7.42); VBG PO2 110 mmHg (25-50)
[2020-11-22 18:26] LABS: Albumin/Globulin Ratio 0.8 (1.1-2.2); Bilirubin,Direct 0.3 mg/dL (0.0-0.2); Bilirubin,Indirect 0.7 mg/dL (0.0-1.0); Globulin 3.9 g/dL (2.4-3.5); Magnesium 1.8 mg/dL (1.6-2.6); Phosphorous 3.7 mg/dL (2.7-4.5); Total Protein 6.9 g/dL (6.4-8.9)
[2020-11-22] MEDS ORDERED: Albumin 25% 25gram/100mL 25 GM/100 ML IV.SOLN IVPB ONE (19:33)
[2020-11-22 19:58] LABS: Troponin I 0.03 ng/mL (< 0.04)
[2020-11-22 20:11] LABS: Thyroid Stimulating Hormone 9.469 mcIU/mL (0.340-5.600)
[2020-11-22 20:18] LABS: Folate 15.2 ng/mL (3.0-16.0)
[2020-11-22] MEDS ORDERED: Ipratropium/Albuterol Neb 3 ML IH ONE (21:28)
[2020-11-23 00:47] LABS: Basophils # 0.1 K/mcL (0.0-0.2); Basophils % 0.7 %; Eosinophils # 0.1 K/mcL (0.0-0.6); Eosinophils % 1.7 %; Hematocrit 28.1 % (37.5-50.1); Hemoglobin 8.7 g/dL (12.9-16.9); Immature Granulocytes % 0.5 % (0-4); Lymphocytes # 0.9 K/mcL (0.6-4.6); Lymphocytes % 10.7 %; Mean Corpuscular Hemoglobin 28.2 pg (28.0-33.3); Mean Corpuscular Volume 90.9 fL (83.0-100.0); Mean Platelet Volume 10.3 fL (9.4-12.4); Monocytes # 0.9 K/mcL (0.0-1.3); Neutrophils # 6.1 K/mcL (1.6-8.9); Red Blood Count 3.09 M/mcL (4.19-5.50); Red Cell Distribution Width 18.8 % (11.5-14.5); Segmented Neutrophils % 75.4 %; White Blood Count 8.1 K/mcL (4.3-11.1)
[2020-11-23 00:49] LABS: Platelet Count 98 K/mcL (140-400)
[2020-11-23 01:03] LABS: Albumin 3.1 g/dL (3.5-5.7); Albumin/Globulin Ratio 0.9 (1.1-2.2); Calcium 8.6 mg/dL (8.6-10.3); Globulin 3.6 g/dL (2.4-3.5); Potassium 4.2 mEq/L (3.5-5.1); Total Protein 6.7 g/dL (6.4-8.9)
[2020-11-23] MEDS ORDERED: Aspirin 325 MG TABLET PO ONE (09:45)
[2020-11-23 10:05] LABS: Adenovirus Not Detected (Not Detect); Bordetella Pertussis Not Detected (Not Detect); Chlamydophila pneumoniae Not Detected (Not Detect); Coronavirus 229E Not Detected (Not Detect); Coronavirus HKU1 Not Detected (Not Detect); Coronavirus NL63 Not Detected (Not Detect); Coronavirus OC43 Not Detected (Not Detect); Human Metapneumovirus Not Detected (Not Detect); Human Rhinovirus/Enterovirus Not Detected (Not Detect); Influenza A Subtype 2009 H1 Not Detected (Not Detect); Influenza B Not Detected (Not Detect); Mycoplasma pneumoniae Not Detected (Not Detect); Parainfluenza Virus 1 Not Detected (Not Detect); Parainfluenza Virus 2 Not Detected (Not Detect); Parainfluenza Virus 3 Not Detected (Not Detect); Parainfluenza Virus 4 Not Detected (Not Detect); Respiratory Syncytial Virus DETECTED (Not Detect); SARS-CoV-2 Not Detected (Not Detect)
[2020-11-23] MEDS ORDERED: E-Z-PAQUE (BARIUM SULF) SUSP 1 BOTTLE PO ONE (10:28)
[2020-11-23] MEDS ORDERED: E-Z-HD (BARIUM SULF) SUSPENSION PO ONE (10:28)
[2020-11-23 11:01] LABS: Chol/HDL Ratio 4.3 (0-4.9)
[2020-11-23 11:23] LABS: Estimated Average Glucose 108 mg/dl; Hemoglobin A1C 5.4 %
[2020-11-23] MEDS ORDERED: Cyanocobalamin (B-12) 1,000 MCG/ML VIAL IM ONE (11:50)
[2020-11-23] MEDS: Ipratropium/Albuterol Neb 3 ML IH SCH ×3 (15:38→23:22)
[2020-11-23] MEDS: levETIRAcetam 250 MG TABLET PO SCH (16:03)
[2020-11-23] MEDS: Lactulose Oral Soln 20 GM/30 ML UDC PO SCH ×2 (16:03→20:56)
[2020-11-23] MEDS: *HR* Heparin 5,000 UNIT/ML VIAL SQ SCH (16:03)
[2020-11-24] MEDS: levETIRAcetam 250 MG TABLET PO SCH ×2 (00:58→13:27)
[2020-11-24] MEDS: Ipratropium/Albuterol Neb 3 ML IH SCH ×6 (03:55→23:36)
[2020-11-24] MEDS: *HR* Heparin 5,000 UNIT/ML VIAL SQ SCH ×2 (05:33→17:12)
[2020-11-24 08:26] LABS: Hemoglobin 8.9 g/dL (12.9-16.9); Red Cell Distribution Width 18.6 % (11.5-14.5); Segmented Neutrophils % 63.6 %
[2020-11-24] MEDS: Aspirin 81 MG TAB.CHEW PO SCH (08:27)
[2020-11-24] MEDS: Lactulose Oral Soln 20 GM/30 ML UDC PO SCH ×2 (08:27→21:30)
[2020-11-24 08:28] LABS: Basophils % 0.6 %; Eosinophils # 0.2 K/mcL (0.0-0.6); Eosinophils % 3.4 %; Hematocrit 28.9 % (37.5-50.1); Immature Granulocytes % 0.2 % (0-4); Immature Platelets 3.7 % (1.1-6.1); Lymphocytes # 0.9 K/mcL (0.6-4.6); Lymphocytes % 17.7 %; Mean Corpuscular HGB Conc 30.8 g/dL (31.6-35.5); Mean Corpuscular Volume 90.9 fL (83.0-100.0); Mean Platelet Volume 11.1 fL (9.4-12.4); Monocytes # 0.8 K/mcL (0.0-1.3); Monocytes % 14.5 %; Neutrophils # 3.4 K/mcL (1.6-8.9); Platelet Count 101 K/mcL (140-400); Red Blood Count 3.18 M/mcL (4.19-5.50); White Blood Count 5.3 K/mcL (4.3-11.1)
[2020-11-24 08:29] LABS: BUN/Creatinine Ratio 19 (6-26); Blood Urea Nitrogen 23 mg/dL (8-23); Calcium 8.5 mg/dL (8.6-10.3); Carbon Dioxide 19 mEq/L (23-29); Chloride 107 mEq/L (98-107); Glucose 78 mg/dL (70-105); Osmolality,Calculated 279 (280-300); Potassium 3.9 mEq/L (3.5-5.1); Sodium 133 mEq/L (136-145); eGFR For African Americans > 60 (> 60); eGFR For Non-African Americans 59 (> 60)
[2020-11-24] MEDS ORDERED: Cyanocobalamin (B-12) 1,000 MCG TABLET PO SCH (09:00)
[2020-11-24] MEDS ORDERED: Cyanocobalamin (B-12) 1,000 MCG/ML VIAL IM ONE (12:43)
[2020-11-25] MEDS: levETIRAcetam 250 MG TABLET PO SCH (00:55)
[2020-11-25] MEDS: Ipratropium/Albuterol Neb 3 ML IH SCH ×3 (03:50→11:10)
[2020-11-25] MEDS: *HR* Heparin 5,000 UNIT/ML VIAL SQ SCH (05:06)
[2020-11-25 07:02] VITALS: TEMP 98.5
[2020-11-25 08:29] LABS: BUN/Creatinine Ratio 17 (6-26); Blood Urea Nitrogen 18 mg/dL (8-23); Calcium 8.9 mg/dL (8.6-10.3); Carbon Dioxide 18 mEq/L (23-29); Chloride 105 mEq/L (98-107); Glucose 93 mg/dL (70-105); Osmolality,Calculated 274 (280-300); Potassium 4.1 mEq/L (3.5-5.1); Sodium 131 mEq/L (136-145); eGFR For African Americans > 60 (> 60); eGFR For Non-African Americans > 60 (> 60)
[2020-11-25 08:34] LABS: Basophils % 0.8 %; Eosinophils # 0.2 K/mcL (0.0-0.6); Eosinophils % 5.1 %; Hematocrit 30.7 % (37.5-50.1); Hemoglobin 9.6 g/dL (12.9-16.9); Immature Granulocytes % 0.3 % (0-4); Immature Platelets 3.5 % (1.1-6.1); Lymphocytes # 0.6 K/mcL (0.6-4.6); Lymphocytes % 14.8 %; Mean Corpuscular HGB Conc 31.3 g/dL (31.6-35.5); Mean Corpuscular Hemoglobin 28.7 pg (28.0-33.3); Mean Corpuscular Volume 91.6 fL (83.0-100.0); Mean Platelet Volume 11.8 fL (9.4-12.4); Monocytes # 0.6 K/mcL (0.0-1.3); Monocytes % 16.2 %; Neutrophils # 2.3 K/mcL (1.6-8.9); Platelet Count 119 K/mcL (140-400); Red Blood Count 3.35 M/mcL (4.19-5.50); Red Cell Distribution Width 18.2 % (11.5-14.5); Segmented Neutrophils % 62.8 %; White Blood Count 3.7 K/mcL (4.3-11.1)
[2020-11-25] MEDS: Aspirin 81 MG TAB.CHEW PO SCH (08:57)
[2020-11-25] MEDS: Lactulose Oral Soln 20 GM/30 ML UDC PO SCH (08:57)
[2020-11-25 11:46] LABS: Adenovirus Not Detected (Not Detect); Bordetella Pertussis Not Detected (Not Detect); Chlamydophila pneumoniae Not Detected (Not Detect); Coronavirus 229E Not Detected (Not Detect); Coronavirus HKU1 Not Detected (Not Detect); Coronavirus NL63 Not Detected (Not Detect); Coronavirus OC43 Not Detected (Not Detect); Human Metapneumovirus Not Detected (Not Detect); Human Rhinovirus/Enterovirus Not Detected (Not Detect); Influenza A Subtype 2009 H1 Not Detected (Not Detect); Influenza B Not Detected (Not Detect); Mycoplasma pneumoniae Not Detected (Not Detect); Parainfluenza Virus 1 Not Detected (Not Detect); Parainfluenza Virus 2 Not Detected (Not Detect); Parainfluenza Virus 3 Not Detected (Not Detect); Parainfluenza Virus 4 Not Detected (Not Detect); Respiratory Syncytial Virus Not Detected (Not Detect); SARS-CoV-2 Not Detected (Not Detect)
[2020-11-25 12:07] VITALS: BP 148/80; PULSE 73; O2SAT 100
[2020-11-25 12:51] LABS: Platelet Estimate Decreased (Normal)
== END 2020-11-25 12:37 ==
LOC: 3BNU 12:49 → EMEROOARM 12:49 → 3BNU 16:22
PROVIDERS: ADMIT Student in an Organized Health Care Education/Training Program; ATTEND Student in an Organized Health Care Education/Training Program

== ENCOUNTER 2021-05-12 16:22 | Inpatient (IN) ==
[2021-05-12] MEDS ORDERED: Aspirin 81 MG TAB.CHEW PO ONE (16:48)
[2021-05-12 17:06] LABS: Eosinophils # 0.2 K/mcL (0.0-0.6); Hematocrit 27.5 % (37.5-50.1); Mean Corpuscular HGB Conc 29.1 g/dL (31.6-35.5); Mean Corpuscular Hemoglobin 25.8 pg (28.0-33.3); Mean Corpuscular Volume 88.7 fL (83.0-100.0); Mean Platelet Volume 10.1 fL (9.4-12.4); Platelet Count 140 K/mcL (140-400); Red Cell Distribution Width 16.6 % (11.5-14.5); White Blood Count 2.7 K/mcL (4.3-11.1)
[2021-05-12 17:18] LABS: INR 1.3; Prothrombin Time 14.9 Seconds (9.4-12.1)
[2021-05-12 17:28] LABS: BUN/Creatinine Ratio 15 (6-26); Blood Urea Nitrogen 14 mg/dL (8-23); Calcium 8.1 mg/dL (8.6-10.3); Carbon Dioxide 28 mEq/L (23-29); Chloride 107 mEq/L (98-107); Glucose 97 mg/dL (70-105); Osmolality,Calculated 288 (280-300); Potassium 3.5 mEq/L (3.5-5.1); Sodium 139 mEq/L (136-145); eGFR For African Americans > 60 (> 60); eGFR For Non-African Americans > 60 (> 60)
[2021-05-12 17:29] LABS: Troponin I < 0.03 ng/mL (< 0.04)
[2021-05-12 17:46] LABS: Hypochromasia Present (Not Present); Lymphocytes # 1.1 K/mcL (0.6-4.6); Monocytes # 0.4 K/mcL (0.0-1.3); Platelet Estimate Normal (Normal)
[2021-05-12 17:47] LABS: Anisocytosis 1+ (Not Present)
[2021-05-12] MEDS ORDERED: Naloxone 0.4 MG/ML INJ IVP PRN (18:35)
[2021-05-12] MEDS ORDERED: Ondansetron 4 MG/2 ML VIAL IVP PRN (18:35)
[2021-05-12] MEDS ORDERED: Nitroglycerin 0.4 MG TAB.SUBL SL PRN (18:38)
[2021-05-12 21:43] LABS: Magnesium 1.7 mg/dL (1.6-2.6)
[2021-05-12] MEDS ORDERED: Morphine Sulfate 2 MG/ML SYRINGE IVP PRN (21:44)
[2021-05-12] MEDS ORDERED: Perflutren Lipid Microsphere 1.3 ML in 0.9 % Sodium Chloride 8.7 ML IVP PRN (21:47)
[2021-05-12 22:05] LABS: Folate 15.5 ng/mL (3.0-16.0)
[2021-05-12] MEDS ORDERED: Isovue-370 500 ML BOTTLE IVP ONE (22:58)
[2021-05-13] MEDS ORDERED: Calcium Gluconate 1gm/50mL 1 GM/50 ML BAG IVPB ONE (00:29)
[2021-05-13] MEDS: levETIRAcetam 250 MG TABLET PO SCH ×2 (01:05→11:46)
[2021-05-13 01:11] LABS: Hematocrit 24.3 % (37.5-50.1); Hemoglobin 7.2 g/dL (12.9-16.9); Mean Corpuscular HGB Conc 29.6 g/dL (31.6-35.5); Mean Corpuscular Hemoglobin 25.4 pg (28.0-33.3); Mean Corpuscular Volume 85.6 fL (83.0-100.0); Platelet Count 118 K/mcL (140-400); Red Blood Count 2.84 M/mcL (4.19-5.50); Red Cell Distribution Width 16.4 % (11.5-14.5)
[2021-05-13 01:19] LABS: INR 1.4; Prothrombin Time 15.1 Seconds (9.4-12.1)
[2021-05-13 01:22] LABS: Activated Partial Thrombo Time 38.7 Seconds (26.0-36.0)
[2021-05-13 01:32] LABS: BUN/Creatinine Ratio 17 (6-26); Blood Urea Nitrogen 15 mg/dL (8-23); Calcium 7.7 mg/dL (8.6-10.3); Carbon Dioxide 26 mEq/L (23-29); Chloride 108 mEq/L (98-107); Chol/HDL Ratio 2.2 (0-4.9); Cholesterol 78 mg/dL (< 200); Glucose 87 mg/dL (70-105); HDL Cholesterol 35 mg/dL (40-59); LDL Cholesterol,Calculated 32 mg/dL (< 100); Osmolality,Calculated 286 (280-300); Potassium 3.3 mEq/L (3.5-5.1); Sodium 138 mEq/L (136-145); Triglycerides 54 mg/dL (< 150); Troponin I < 0.03 ng/mL (< 0.04); eGFR For African Americans > 60 (> 60); eGFR For Non-African Americans > 60 (> 60)
[2021-05-13 01:46] LABS: Bacteria,Urine Few per hpf (None-Few); Bilirubin,Urine Negative (Negative); Blood,Urine Negative (Negative); Clarity,Urine Clear (Clear); Color,Urine Light-Yellow (Yellow); Glucose,Urine (UA) Normal (Normal); Ketones,Urine Negative (Negative); Leukocyte Esterase,Urine Moderate (Negative); Nitrite,Urine Positive (Negative); PH,Urine 6.5 pH Units (5.0-8.0); Protein,Urine Negative (Neg-Trace); RBC,Urine 0-3 per hpf (0-3); Specific Gravity,Urine 1.028 (1.010-1.025); Squamous Epithelial Cell,Urine Few per hpf (None-Few); Urobilinogen,Urine Normal (Normal); WBC,Urine 50-100 per hpf (0-3)
[2021-05-13 01:54] LABS: Estimated Average Glucose 108 mg/dl; Hemoglobin A1C 5.4 %
[2021-05-13] MEDS ORDERED: levoFLOXacin 750 MG/150 ML 750 MG/150 ML BAG IVPB SCH (09:00)
[2021-05-13] MEDS: Cholecalciferol (D-3) 1,000 UNIT (25MCG) TABLET PO SCH (09:03)
[2021-05-13] MEDS: Cyanocobalamin (B-12) 1,000 MCG TABLET PO SCH (09:04)
[2021-05-13] MEDS: Aspirin Enteric Coated 81 MG Tablet PO SCH (09:04)
[2021-05-13] MEDS: Lactobacillus 1 EACH CAP.SPRINK PO SCH ×2 (09:04→21:08)
[2021-05-13] MEDS: Furosemide 40 MG TABLET PO SCH (09:04)
[2021-05-13] MEDS: Isosorbide MONOnitrate (24 HR) 30 MG TAB.ER.24H PO SCH (11:46)
[2021-05-13] MEDS: Finasteride 5 MG TABLET PO SCH (21:08)
[2021-05-14] MEDS: levETIRAcetam 250 MG TABLET PO SCH ×2 (00:44→12:49)
[2021-05-14 01:32] LABS: Hematocrit 25.1 % (37.5-50.1); Hemoglobin 7.6 g/dL (12.9-16.9); Mean Corpuscular HGB Conc 30.3 g/dL (31.6-35.5); Mean Corpuscular Hemoglobin 26.1 pg (28.0-33.3); Mean Corpuscular Volume 86.3 fL (83.0-100.0); Mean Platelet Volume 10.6 fL (9.4-12.4); Platelet Count 140 K/mcL (140-400); Red Blood Count 2.91 M/mcL (4.19-5.50); Red Cell Distribution Width 16.6 % (11.5-14.5); White Blood Count 2.4 K/mcL (4.3-11.1)
[2021-05-14 01:49] LABS: BUN/Creatinine Ratio 16 (6-26); Blood Urea Nitrogen 15 mg/dL (8-23); Calcium 8.2 mg/dL (8.6-10.3); Carbon Dioxide 25 mEq/L (23-29); Chloride 108 mEq/L (98-107); Glucose 80 mg/dL (70-105); Osmolality,Calculated 286 (280-300); Potassium 3.5 mEq/L (3.5-5.1); Sodium 138 mEq/L (136-145); eGFR For African Americans > 60 (> 60); eGFR For Non-African Americans > 60 (> 60)
[2021-05-14] MEDS: Piperacillin/Tazobactam 3.375 GM in 0.9 % Sodium Chloride Mini Bag 100 ML IVPB SCH ×2 (08:33→16:41)
[2021-05-14] MEDS: Isosorbide MONOnitrate (24 HR) 30 MG TAB.ER.24H PO SCH (08:33)
[2021-05-14] MEDS: Cholecalciferol (D-3) 1,000 UNIT (25MCG) TABLET PO SCH (08:34)
[2021-05-14] MEDS: Cyanocobalamin (B-12) 1,000 MCG TABLET PO SCH (08:34)
[2021-05-14] MEDS: Lactobacillus 1 EACH CAP.SPRINK PO SCH ×2 (08:34→20:30)
[2021-05-14] MEDS: Furosemide 40 MG TABLET PO SCH (08:34)
[2021-05-14] MEDS: Aspirin Enteric Coated 81 MG Tablet PO SCH (08:34)
[2021-05-14] MEDS: Finasteride 5 MG TABLET PO SCH (20:30)
[2021-05-15] MEDS: levETIRAcetam 250 MG TABLET PO SCH ×2 (00:31→12:59)
[2021-05-15] MEDS: Piperacillin/Tazobactam 3.375 GM in 0.9 % Sodium Chloride Mini Bag 100 ML IVPB SCH ×3 (00:32→16:43)
[2021-05-15 03:32] LABS: Eosinophils # 0.2 K/mcL (0.0-0.6); Eosinophils % 6.3 %; Hematocrit 26.1 % (37.5-50.1); Hemoglobin 7.7 g/dL (12.9-16.9); Immature Granulocytes % 0.3 % (0-4); Lymphocytes # 0.7 K/mcL (0.6-4.6); Lymphocytes % 21.9 %; Mean Corpuscular HGB Conc 29.5 g/dL (31.6-35.5); Mean Corpuscular Hemoglobin 25.5 pg (28.0-33.3); Mean Corpuscular Volume 86.4 fL (83.0-100.0); Mean Platelet Volume 9.9 fL (9.4-12.4); Monocytes # 0.4 K/mcL (0.0-1.3); Neutrophils # 1.7 K/mcL (1.6-8.9); Platelet Count 133 K/mcL (140-400); Red Blood Count 3.02 M/mcL (4.19-5.50); Red Cell Distribution Width 16.6 % (11.5-14.5); Segmented Neutrophils % 57.5 %
[2021-05-15 03:48] LABS: Alanine Aminotransferase 12 Units/L (7-52); Albumin 2.8 g/dL (3.5-5.7); Albumin/Globulin Ratio 0.8 (1.1-2.2); Alkaline Phosphatase 89 Units/L (34-104); Aspartate Amino Transferase 30 Units/L (13-39); BUN/Creatinine Ratio 15 (6-26); Bilirubin,Total 0.6 mg/dL (0.3-1.0); Blood Urea Nitrogen 16 mg/dL (8-23); Carbon Dioxide 26 mEq/L (23-29); Chloride 110 mEq/L (98-107); Globulin 3.6 g/dL (2.4-3.5); Glucose 97 mg/dL (70-105); Osmolality,Calculated 291 (280-300); Potassium 3.4 mEq/L (3.5-5.1); Sodium 140 mEq/L (136-145); Total Protein 6.4 g/dL (6.4-8.9); eGFR For African Americans > 60 (> 60); eGFR For Non-African Americans > 60 (> 60)
[2021-05-15] MEDS: Cyanocobalamin (B-12) 1,000 MCG TABLET PO SCH (08:27)
[2021-05-15] MEDS: Furosemide 40 MG TABLET PO SCH (08:27)
[2021-05-15] MEDS: Cholecalciferol (D-3) 1,000 UNIT (25MCG) TABLET PO SCH (08:27)
[2021-05-15] MEDS: Isosorbide MONOnitrate (24 HR) 30 MG TAB.ER.24H PO SCH (08:27)
[2021-05-15] MEDS: Aspirin Enteric Coated 81 MG Tablet PO SCH (08:27)
[2021-05-15] MEDS: Lactobacillus 1 EACH CAP.SPRINK PO SCH ×2 (08:27→20:25)
[2021-05-15] MEDS: Finasteride 5 MG TABLET PO SCH (20:25)
[2021-05-16] MEDS: levETIRAcetam 250 MG TABLET PO SCH (00:20)
[2021-05-16] MEDS: Piperacillin/Tazobactam 3.375 GM in 0.9 % Sodium Chloride Mini Bag 100 ML IVPB SCH (00:21)
[2021-05-16 03:14] LABS: Basophils % 1.3 %; Eosinophils # 0.2 K/mcL (0.0-0.6); Eosinophils % 7.6 %; Hematocrit 24.8 % (37.5-50.1); Hemoglobin 7.3 g/dL (12.9-16.9); Immature Granulocytes % 0.3 % (0-4); Lymphocytes # 0.8 K/mcL (0.6-4.6); Lymphocytes % 25.4 %; Mean Corpuscular HGB Conc 29.4 g/dL (31.6-35.5); Mean Corpuscular Hemoglobin 25.4 pg (28.0-33.3); Mean Corpuscular Volume 86.4 fL (83.0-100.0); Mean Platelet Volume 10.2 fL (9.4-12.4); Monocytes # 0.5 K/mcL (0.0-1.3); Monocytes % 16.5 %; Neutrophils # 1.5 K/mcL (1.6-8.9); Platelet Count 134 K/mcL (140-400); Red Blood Count 2.87 M/mcL (4.19-5.50); Red Cell Distribution Width 16.7 % (11.5-14.5); Segmented Neutrophils % 48.9 %
[2021-05-16 03:29] LABS: Alanine Aminotransferase 11 Units/L (7-52); Albumin 2.7 g/dL (3.5-5.7); Albumin/Globulin Ratio 0.7 (1.1-2.2); Alkaline Phosphatase 95 Units/L (34-104); Aspartate Amino Transferase 29 Units/L (13-39); BUN/Creatinine Ratio 14 (6-26); Bilirubin,Total 0.7 mg/dL (0.3-1.0); Blood Urea Nitrogen 16 mg/dL (8-23); Calcium 7.8 mg/dL (8.6-10.3); Carbon Dioxide 24 mEq/L (23-29); Chloride 107 mEq/L (98-107); Globulin 3.7 g/dL (2.4-3.5); Glucose 98 mg/dL (70-105); Osmolality,Calculated 283 (280-300); Potassium 3.3 mEq/L (3.5-5.1); Sodium 136 mEq/L (136-145); Total Protein 6.4 g/dL (6.4-8.9); eGFR For African Americans > 60 (> 60); eGFR For Non-African Americans > 60 (> 60)
[2021-05-16 07:13] VITALS: TEMP 98.1
[2021-05-16] MEDS ORDERED: Ertapenem 1,000 MG in 0.9 % Sodium Chloride Mini Bag 100 ML IVPB SCH (09:00)
[2021-05-16] MEDS: Cyanocobalamin (B-12) 1,000 MCG TABLET PO SCH (10:48)
[2021-05-16] MEDS: Lactobacillus 1 EACH CAP.SPRINK PO SCH (10:48)
[2021-05-16] MEDS: Aspirin Enteric Coated 81 MG Tablet PO SCH (10:48)
[2021-05-16 10:49] VITALS: BP 145/74; PULSE 79; O2SAT 99
[2021-05-16] MEDS: Furosemide 40 MG TABLET PO SCH (10:49)
[2021-05-16] MEDS: Isosorbide MONOnitrate (24 HR) 30 MG TAB.ER.24H PO SCH (10:49)
[2021-05-16] MEDS: Cholecalciferol (D-3) 1,000 UNIT (25MCG) TABLET PO SCH (10:49)
[2021-05-16 12:03] LABS: Influenza A PCR Negative (Negative); Influenza B PCR Negative (Negative); Resp. Syncytial Virus PCR Negative (Negative); SARS-CoV-2 by PCR (In House) Negative (Negative)
== END 2021-05-16 14:07 | disposition other institution (70) | DRG 690 ==
LOC: EMEROOARM 16:22 → 3BNU 16:22 → SUATTDRO 05-13 13:15
PROVIDERS: ADMIT Nurse Practitioner; ATTEND Nurse Practitioner

== ENCOUNTER 2021-07-04 17:32 | Inpatient (IN) ==
[2021-07-04 18:27] LABS: Basophils % 0.7 %; Eosinophils # 0.7 K/mcL (0.0-0.6); Hematocrit 19.2 % (37.5-50.1); Immature Granulocytes % 0.2 % (0-4); Lymphocytes # 0.9 K/mcL (0.6-4.6); Lymphocytes % 19.8 %; Mean Corpuscular HGB Conc 29.2 g/dL (31.6-35.5); Mean Corpuscular Hemoglobin 25.7 pg (28.0-33.3); Mean Corpuscular Volume 88.1 fL (83.0-100.0); Mean Platelet Volume 10.9 fL (9.4-12.4); Monocytes # 0.5 K/mcL (0.0-1.3); Monocytes % 11.4 %; Neutrophils # 2.2 K/mcL (1.6-8.9); Platelet Count 138 K/mcL (140-400); Red Blood Count 2.18 M/mcL (4.19-5.50); Red Cell Distribution Width 20.3 % (11.5-14.5); Segmented Neutrophils % 51.9 %; White Blood Count 4.3 K/mcL (4.3-11.1)
[2021-07-04 18:33] LABS: INR 1.3; Prothrombin Time 14.4 Seconds (9.4-12.1)
[2021-07-04 18:36] LABS: Activated Partial Thrombo Time 36.6 Seconds (26.0-36.0)
[2021-07-04 18:46] LABS: Alanine Aminotransferase 20 Units/L (7-52); Albumin 2.9 g/dL (3.5-5.7); Albumin/Globulin Ratio 0.7 (1.1-2.2); Alkaline Phosphatase 121 Units/L (34-104); Aspartate Amino Transferase 52 Units/L (13-39); BUN/Creatinine Ratio 21 (6-26); Bilirubin,Total 0.7 mg/dL (0.3-1.0); Blood Urea Nitrogen 27 mg/dL (8-23); Calcium 7.9 mg/dL (8.6-10.3); Carbon Dioxide 24 mEq/L (23-29); Chloride 105 mEq/L (98-107); Globulin 3.9 g/dL (2.4-3.5); Glucose 84 mg/dL (70-105); Osmolality,Calculated 284 (280-300); Potassium 3.8 mEq/L (3.5-5.1); Sodium 135 mEq/L (136-145); Total Protein 6.8 g/dL (6.4-8.9); eGFR For African Americans > 60 (> 60); eGFR For Non-African Americans 54 (> 60)
[2021-07-04 18:51] LABS: Hemoglobin 5.6 g/dL (12.9-16.9)
[2021-07-04 18:59] LABS: Anisocytosis 2+ (Not Present); Hypochromasia Present (Not Present); Microcytosis Present (Not Present); Platelet Estimate Normal (Normal)
[2021-07-04] MEDS ORDERED: 0.9 % Sodium Chloride 1,000 ML ONE (19:47)
[2021-07-04] MEDS ORDERED: Ondansetron 4 MG/2 ML VIAL IVP PRN (19:58)
[2021-07-04] MEDS ORDERED: Naloxone 0.4 MG/ML INJ IVP PRN (19:58)
[2021-07-04 20:12] LABS: Influenza A PCR Negative (Negative); Influenza B PCR Negative (Negative); Resp. Syncytial Virus PCR Negative (Negative)
[2021-07-04 20:16] LABS: SARS-CoV-2 by PCR (In House) Negative (Negative)
[2021-07-04] MEDS: Pantoprazole 40 MG in 0.9 % Sodium Chloride Mini Bag 100 ML IVC SCH (21:41)
[2021-07-04] MEDS ORDERED: Pantoprazole 80 MG in 0.9 % Sodium Chloride 50 ML IVPB ONE (21:42)
[2021-07-04] MEDS ORDERED: Melatonin 3 MG TABLET PO PRN (21:46)
[2021-07-04] MEDS ORDERED: Furosemide 20 MG/2 ML VIAL IVP ONE (21:49)
[2021-07-04] MEDS: levETIRAcetam 250 MG TABLET PO SCH (22:09)
[2021-07-05] MEDS: Pantoprazole 40 MG in 0.9 % Sodium Chloride Mini Bag 100 ML IVC SCH ×2 (03:18→08:40)
[2021-07-05 03:24] LABS: Hematocrit 21.1 % (37.5-50.1); Hemoglobin 6.3 g/dL (12.9-16.9); Mean Corpuscular HGB Conc 29.9 g/dL (31.6-35.5); Mean Corpuscular Hemoglobin 26.4 pg (28.0-33.3); Mean Corpuscular Volume 88.3 fL (83.0-100.0); Mean Platelet Volume 10.8 fL (9.4-12.4); Platelet Count 126 K/mcL (140-400); Red Blood Count 2.39 M/mcL (4.19-5.50); Red Cell Distribution Width 19.2 % (11.5-14.5); White Blood Count 3.7 K/mcL (4.3-11.1)
[2021-07-05] MEDS ORDERED: 0.9 % Sodium Chloride 250 ML ONE ×2 (03:35→15:13)
[2021-07-05 03:36] LABS: INR 1.3; Prothrombin Time 14.7 Seconds (9.4-12.1)
[2021-07-05 03:51] LABS: % Iron Saturation 11 % (20-55); Alanine Aminotransferase 19 Units/L (7-52); Albumin 2.7 g/dL (3.5-5.7); Albumin/Globulin Ratio 0.7 (1.1-2.2); Alkaline Phosphatase 106 Units/L (34-104); Aspartate Amino Transferase 45 Units/L (13-39); BUN/Creatinine Ratio 21 (6-26); Bilirubin,Direct 0.3 mg/dL (0.0-0.2); Bilirubin,Indirect 0.8 mg/dL (0.0-1.0); Bilirubin,Total 1.1 mg/dL (0.3-1.0); Blood Urea Nitrogen 24 mg/dL (8-23); Calcium 7.7 mg/dL (8.6-10.3); Carbon Dioxide 24 mEq/L (23-29); Chloride 106 mEq/L (98-107); Globulin 3.8 g/dL (2.4-3.5); Glucose 78 mg/dL (70-105); Iron 40 mcg/dL (65-175); Magnesium 1.7 mg/dL (1.6-2.6); Osmolality,Calculated 287 (280-300); Phosphorous 3.4 mg/dL (2.7-4.5); Potassium 3.6 mEq/L (3.5-5.1); Sodium 137 mEq/L (136-145); Total Protein 6.5 g/dL (6.4-8.9); Transferrin 263 mg/dL (203-362); eGFR For African Americans > 60 (> 60); eGFR For Non-African Americans > 60 (> 60)
[2021-07-05 04:00] LABS: Bilirubin,Urine Negative (Negative); Blood,Urine Negative (Negative); Clarity,Urine Clear (Clear); Color,Urine Colorless (Yellow); Glucose,Urine (UA) Normal (Normal); Ketones,Urine Negative (Negative); Leukocyte Esterase,Urine Negative (Negative); Nitrite,Urine Negative (Negative); Protein,Urine Negative (Neg-Trace); Specific Gravity,Urine 1.007 (1.010-1.025); Urobilinogen,Urine Normal (Normal)
[2021-07-05 04:09] LABS: Ferritin 18 ng/mL (20-250)
[2021-07-05] MEDS: levETIRAcetam 250 MG TABLET PO SCH ×2 (08:27→21:32)
[2021-07-05] MEDS: Lactobacillus 1 EACH CAP.SPRINK PO SCH ×2 (08:27→21:32)
[2021-07-05] MEDS: Cholecalciferol (D-3) 1,000 UNIT (25MCG) TABLET PO SCH (08:27)
[2021-07-05] MEDS: Cyanocobalamin (B-12) 1,000 MCG TABLET PO SCH (08:27)
[2021-07-05] MEDS: Lactulose Oral Soln 20 GM/30 ML UDC PO SCH ×2 (08:27→21:36)
[2021-07-05] MEDS: Piperacillin/Tazobactam 3.375 GM in 0.9 % Sodium Chloride Mini Bag 100 ML IVPB SCH ×2 (10:41→17:09)
[2021-07-05 13:49] LABS: Hematocrit 23.1 % (37.5-50.1); Hemoglobin 6.9 g/dL (12.9-16.9); Mean Corpuscular HGB Conc 29.9 g/dL (31.6-35.5); Mean Corpuscular Hemoglobin 26.4 pg (28.0-33.3); Mean Corpuscular Volume 88.5 fL (83.0-100.0); Mean Platelet Volume 10.9 fL (9.4-12.4); Platelet Count 119 K/mcL (140-400); Red Blood Count 2.61 M/mcL (4.19-5.50); Red Cell Distribution Width 18.6 % (11.5-14.5)
[2021-07-05] MEDS: Pantoprazole 40 MG VIAL IVP SCH (17:10)
[2021-07-05] MEDS: Finasteride 5 MG TABLET PO SCH (21:32)
[2021-07-05 21:51] LABS: Hematocrit 25.5 % (37.5-50.1); Hemoglobin 7.6 g/dL (12.9-16.9)
[2021-07-06] MEDS: Piperacillin/Tazobactam 3.375 GM in 0.9 % Sodium Chloride Mini Bag 100 ML IVPB SCH ×3 (01:51→17:12)
[2021-07-06] MEDS: Pantoprazole 40 MG VIAL IVP SCH ×2 (05:10→17:15)
[2021-07-06] MEDS: levETIRAcetam 250 MG TABLET PO SCH ×2 (08:55→21:08)
[2021-07-06] MEDS: Cyanocobalamin (B-12) 1,000 MCG TABLET PO SCH (08:55)
[2021-07-06] MEDS: Cholecalciferol (D-3) 1,000 UNIT (25MCG) TABLET PO SCH (08:55)
[2021-07-06] MEDS: Lactobacillus 1 EACH CAP.SPRINK PO SCH ×2 (08:55→21:07)
[2021-07-06] MEDS: Lactulose Oral Soln 20 GM/30 ML UDC PO SCH ×2 (08:56→21:08)
[2021-07-06 11:09] LABS: Basophils % 0.8 %; Eosinophils # 0.3 K/mcL (0.0-0.6); Eosinophils % 13.7 %; Hemoglobin 7.5 g/dL (12.9-16.9); Immature Granulocytes % 0.4 % (0-4); Lymphocytes # 0.5 K/mcL (0.6-4.6); Lymphocytes % 20.2 %; Mean Corpuscular Hemoglobin 26.6 pg (28.0-33.3); Mean Corpuscular Volume 88.7 fL (83.0-100.0); Mean Platelet Volume 10.2 fL (9.4-12.4); Monocytes # 0.4 K/mcL (0.0-1.3); Monocytes % 16.1 %; Neutrophils # 1.2 K/mcL (1.6-8.9); Platelet Count 109 K/mcL (140-400); Red Blood Count 2.82 M/mcL (4.19-5.50); Red Cell Distribution Width 18.3 % (11.5-14.5); Segmented Neutrophils % 48.8 %; White Blood Count 2.5 K/mcL (4.3-11.1)
[2021-07-06] MEDS ORDERED: Promethazine 6.25 MG in Water for inj. (sterile) 20 ML IVPB PRN (12:29)
[2021-07-06] MEDS ORDERED: *HR* FentaNYL (PF) 100 MCG/2 ML VIAL IVP PRN (12:29)
[2021-07-06] MEDS ORDERED: Ondansetron 4 MG/2 ML VIAL IVP PRN (12:29)
[2021-07-06] MEDS ORDERED: *HR* Dextrose 50 % in Water (Syg) 50 ML SYRINGE IVP PRN (13:14)
[2021-07-06] MEDS ORDERED: D5% in Water 1,000 ML IVC PRN (13:14)
[2021-07-06] MEDS ORDERED: Dextrose 4 GM Chewable Tablets PO PRN ×2 (13:14)
[2021-07-06] MEDS ORDERED: Lidocaine -MPF 2% 5 ML VIAL ONE (14:15)
[2021-07-06] MEDS ORDERED: *HR* Propofol 200 MG/20 ML VIAL IVP ONE (14:15)
[2021-07-06] MEDS ORDERED: *HR* Succinylcholine 200 MG/10 ML VIAL IVP ONE (14:17)
[2021-07-06] MEDS ORDERED: Lidocaine HCL 4 ML Topical Solution (Laryng-O-Jet Kit Sterile Pak) TP ONE (14:17)
[2021-07-06] MEDS ORDERED: Ondansetron 4 MG/2 ML VIAL ONE (14:17)
[2021-07-06 17:01] LABS: BUN/Creatinine Ratio 17 (6-26); Blood Urea Nitrogen 15 mg/dL (8-23); Calcium 7.8 mg/dL (8.6-10.3); Carbon Dioxide 25 mEq/L (23-29); Chloride 110 mEq/L (98-107); Glucose 83 mg/dL (70-105); Osmolality,Calculated 288 (280-300); Sodium 139 mEq/L (136-145); eGFR For African Americans > 60 (> 60); eGFR For Non-African Americans > 60 (> 60)
[2021-07-06] MEDS: Finasteride 5 MG TABLET PO SCH (21:08)
[2021-07-07] MEDS: Piperacillin/Tazobactam 3.375 GM in 0.9 % Sodium Chloride Mini Bag 100 ML IVPB SCH ×2 (04:05→10:43)
[2021-07-07] MEDS: Pantoprazole 40 MG VIAL IVP SCH ×2 (06:03→19:44)
[2021-07-07 06:31] LABS: Basophils % 0.5 %; Hematocrit 25.2 % (37.5-50.1); Hemoglobin 7.4 g/dL (12.9-16.9); Immature Granulocytes % 0.5 % (0-4); Lymphocytes # 0.5 K/mcL (0.6-4.6); Mean Corpuscular HGB Conc 29.4 g/dL (31.6-35.5); Mean Corpuscular Hemoglobin 26.2 pg (28.0-33.3); Mean Corpuscular Volume 89.4 fL (83.0-100.0); Mean Platelet Volume 10.1 fL (9.4-12.4); Monocytes # 0.2 K/mcL (0.0-1.3); Monocytes % 8.4 %; Neutrophils # 1.5 K/mcL (1.6-8.9); Platelet Count 119 K/mcL (140-400); Red Blood Count 2.82 M/mcL (4.19-5.50); Red Cell Distribution Width 18.2 % (11.5-14.5); Segmented Neutrophils % 69.6 %; White Blood Count 2.1 K/mcL (4.3-11.1)
[2021-07-07 06:45] LABS: Alanine Aminotransferase 19 Units/L (7-52); Albumin 2.8 g/dL (3.5-5.7); Albumin/Globulin Ratio 0.8 (1.1-2.2); Alkaline Phosphatase 91 Units/L (34-104); Aspartate Amino Transferase 41 Units/L (13-39); BUN/Creatinine Ratio 13 (6-26); Bilirubin,Total 0.8 mg/dL (0.3-1.0); Blood Urea Nitrogen 12 mg/dL (8-23); Calcium 7.8 mg/dL (8.6-10.3); Carbon Dioxide 24 mEq/L (23-29); Chloride 109 mEq/L (98-107); Globulin 3.7 g/dL (2.4-3.5); Glucose 119 mg/dL (70-105); Osmolality,Calculated 285 (280-300); Potassium 3.7 mEq/L (3.5-5.1); Sodium 137 mEq/L (136-145); Total Protein 6.5 g/dL (6.4-8.9); eGFR For African Americans > 60 (> 60); eGFR For Non-African Americans > 60 (> 60)
[2021-07-07] MEDS ORDERED: Lidocaine -MPF 2% 2 ML VIAL ONE (07:45)
[2021-07-07] MEDS ORDERED: Nitroglycerin 0.4 MG TAB.SUBL SL PRN (09:32)
[2021-07-07] MEDS ORDERED: Naloxone 0.4 MG/ML INJ IVP PRN (09:32)
[2021-07-07] MEDS ORDERED: Albuterol 2.5 MG/3 ML NEBULIZER IH PRN (09:32)
[2021-07-07] MEDS: Cholecalciferol (D-3) 1,000 UNIT (25MCG) TABLET PO SCH (10:31)
[2021-07-07] MEDS: Lactulose Oral Soln 20 GM/30 ML UDC PO SCH ×2 (10:31→21:06)
[2021-07-07] MEDS: Cyanocobalamin (B-12) 1,000 MCG TABLET PO SCH (10:31)
[2021-07-07] MEDS: Lactobacillus 1 EACH CAP.SPRINK PO SCH ×2 (10:31→21:06)
[2021-07-07] MEDS: levETIRAcetam 250 MG TABLET PO SCH ×2 (10:42→21:06)
[2021-07-07] MEDS: Finasteride 5 MG TABLET PO SCH (21:06)
[2021-07-08] MEDS: Pantoprazole 40 MG VIAL IVP SCH ×2 (06:14→16:26)
[2021-07-08] MEDS: Cholecalciferol (D-3) 1,000 UNIT (25MCG) TABLET PO SCH (09:11)
[2021-07-08] MEDS: Lactulose Oral Soln 20 GM/30 ML UDC PO SCH ×2 (09:13→20:52)
[2021-07-08] MEDS: Lactobacillus 1 EACH CAP.SPRINK PO SCH ×2 (09:13→20:48)
[2021-07-08] MEDS: Cyanocobalamin (B-12) 1,000 MCG TABLET PO SCH (09:13)
[2021-07-08] MEDS: levETIRAcetam 250 MG TABLET PO SCH ×2 (09:15→20:47)
[2021-07-08] MEDS ORDERED: Iron Sucrose Complex 400 MG in 0.9 % Sodium Chloride 250 ML IVPB ONE (12:20)
[2021-07-08] MEDS ORDERED: Benzonatate 100 MG CAPSULE PO PRN (13:14)
[2021-07-08] MEDS ORDERED: Albuterol 2.5 MG/3 ML NEBULIZER IH ONE (16:37)
[2021-07-08] MEDS: Finasteride 5 MG TABLET PO SCH (20:48)
[2021-07-09] MEDS: Pantoprazole 40 MG VIAL IVP SCH ×2 (05:54→17:42)
[2021-07-09 06:26] LABS: Eosinophils # 0.3 K/mcL (0.0-0.6); Eosinophils % 11.2 %; Hematocrit 24.5 % (37.5-50.1); Hemoglobin 7.2 g/dL (12.9-16.9); Immature Granulocytes % 0.3 % (0-4); Lymphocytes # 0.5 K/mcL (0.6-4.6); Mean Corpuscular HGB Conc 29.4 g/dL (31.6-35.5); Mean Corpuscular Hemoglobin 26.7 pg (28.0-33.3); Mean Corpuscular Volume 90.7 fL (83.0-100.0); Mean Platelet Volume 10.4 fL (9.4-12.4); Monocytes # 0.3 K/mcL (0.0-1.3); Monocytes % 10.8 %; Neutrophils # 1.7 K/mcL (1.6-8.9); Platelet Count 110 K/mcL (140-400); Red Cell Distribution Width 18.1 % (11.5-14.5); Segmented Neutrophils % 58.7 %
[2021-07-09 06:45] LABS: Alanine Aminotransferase 18 Units/L (7-52); Albumin 2.7 g/dL (3.5-5.7); Albumin/Globulin Ratio 0.8 (1.1-2.2); Alkaline Phosphatase 88 Units/L (34-104); Aspartate Amino Transferase 39 Units/L (13-39); BUN/Creatinine Ratio 12 (6-26); Bilirubin,Total 0.7 mg/dL (0.3-1.0); Blood Urea Nitrogen 12 mg/dL (8-23); Calcium 7.8 mg/dL (8.6-10.3); Carbon Dioxide 24 mEq/L (23-29); Chloride 109 mEq/L (98-107); Globulin 3.5 g/dL (2.4-3.5); Glucose 85 mg/dL (70-105); Osmolality,Calculated 283 (280-300); Potassium 3.8 mEq/L (3.5-5.1); Sodium 137 mEq/L (136-145); Total Protein 6.2 g/dL (6.4-8.9); eGFR For African Americans > 60 (> 60); eGFR For Non-African Americans > 60 (> 60)
[2021-07-09] MEDS: Lactulose Oral Soln 20 GM/30 ML UDC PO SCH ×2 (10:08→22:35)
[2021-07-09] MEDS: Cholecalciferol (D-3) 1,000 UNIT (25MCG) TABLET PO SCH (10:08)
[2021-07-09] MEDS: Cyanocobalamin (B-12) 1,000 MCG TABLET PO SCH (10:09)
[2021-07-09] MEDS: Lactobacillus 1 EACH CAP.SPRINK PO SCH ×2 (10:09→22:34)
[2021-07-09] MEDS: levETIRAcetam 250 MG TABLET PO SCH ×2 (10:09→22:35)
[2021-07-09] MEDS ORDERED: Nitroglycerin 0.4 MG TAB.SUBL SL PRN (10:22)
[2021-07-09] MEDS: Furosemide 40 MG/4 ML VIAL IVP SCH (12:06)
[2021-07-09] MEDS: Finasteride 5 MG TABLET PO SCH (22:35)
[2021-07-10] MEDS: Pantoprazole 40 MG VIAL IVP SCH (06:09)
[2021-07-10] MEDS ORDERED: Aspirin Enteric Coated 81 MG Tablet PO SCH (09:00)
[2021-07-10] MEDS: Cholecalciferol (D-3) 1,000 UNIT (25MCG) TABLET PO SCH (09:23)
[2021-07-10] MEDS: Lactulose Oral Soln 20 GM/30 ML UDC PO SCH (09:23)
[2021-07-10] MEDS: Furosemide 40 MG/4 ML VIAL IVP SCH (09:23)
[2021-07-10] MEDS: levETIRAcetam 250 MG TABLET PO SCH (09:24)
[2021-07-10] MEDS: Lactobacillus 1 EACH CAP.SPRINK PO SCH (09:24)
[2021-07-10] MEDS: Cyanocobalamin (B-12) 1,000 MCG TABLET PO SCH (09:29)
[2021-07-10 11:34] VITALS: BP 125/55; PULSE 71; TEMP 98.7; O2SAT 98
== END 2021-07-10 16:35 | disposition home health service (06) | DRG 393 ==
LOC: EMEROOARM 17:32 → 2NENU 17:32 → SUATTDRO 19:25 → 2NENU 20:35
PROVIDERS: ADMIT Student in an Organized Health Care Education/Training Program; ATTEND Internal Medicine
PROC: ENDOEBX (2021-07-06 12:30)

== ENCOUNTER 2021-08-17 18:51 | Inpatient (IN) ==
[2021-08-17] MEDS ORDERED: Naloxone 0.4 MG/ML INJ IVP PRN (21:59)
[2021-08-17] MEDS ORDERED: Ondansetron 4 MG/2 ML VIAL IVP PRN (21:59)
[2021-08-17] MEDS: Pantoprazole 40 MG in 0.9 % Sodium Chloride Mini Bag 100 ML IVC SCH (22:40)
[2021-08-18 03:11] LABS: BUN/Creatinine Ratio 20 (6-26); Blood Urea Nitrogen 25 mg/dL (8-23); Calcium 7.9 mg/dL (8.6-10.3); Carbon Dioxide 22 mEq/L (23-29); Chloride 108 mEq/L (98-107); Glucose 88 mg/dL (70-105); Magnesium 1.8 mg/dL (1.6-2.6); Osmolality,Calculated 288 (280-300); Phosphorous 3.9 mg/dL (2.7-4.5); Potassium 3.6 mEq/L (3.5-5.1); Sodium 137 mEq/L (136-145); eGFR For African Americans > 60 (> 60); eGFR For Non-African Americans 56 (> 60)
[2021-08-18 03:15] LABS: Eosinophils # 0.4 K/mcL (0.0-0.6); Eosinophils % 11.1 %; Immature Granulocytes % 0.3 % (0-4); Lymphocytes # 0.9 K/mcL (0.6-4.6); Lymphocytes % 28.3 %; Mean Corpuscular HGB Conc 29.5 g/dL (31.6-35.5); Mean Corpuscular Hemoglobin 26.6 pg (28.0-33.3); Mean Corpuscular Volume 90.1 fL (83.0-100.0); Mean Platelet Volume 10.8 fL (9.4-12.4); Monocytes # 0.7 K/mcL (0.0-1.3); Monocytes % 21.9 %; Neutrophils # 1.2 K/mcL (1.6-8.9); Platelet Count 119 K/mcL (140-400); Red Blood Count 2.22 M/mcL (4.19-5.50); Segmented Neutrophils % 37.4 %; White Blood Count 3.2 K/mcL (4.3-11.1)
[2021-08-18 03:18] LABS: Hemoglobin 5.9 g/dL (12.9-16.9)
[2021-08-18 03:19] LABS: INR 1.3; Prothrombin Time 14.6 Seconds (9.4-12.1)
[2021-08-18] MEDS ORDERED: Furosemide 40 MG/4 ML VIAL IVP ONE (04:05)
[2021-08-18 04:27] LABS: Alanine Aminotransferase 15 Units/L (7-52); Albumin 2.7 g/dL (3.5-5.7); Albumin/Globulin Ratio 0.6 (1.1-2.2); Alkaline Phosphatase 93 Units/L (34-104); Aspartate Amino Transferase 33 Units/L (13-39); Bilirubin,Direct 0.4 mg/dL (0.0-0.2); Bilirubin,Indirect 0.9 mg/dL (0.0-1.0); Bilirubin,Total 1.3 mg/dL (0.3-1.0); Globulin 4.4 g/dL (2.4-3.5); Total Protein 7.1 g/dL (6.4-8.9)
[2021-08-18] MEDS: Pantoprazole 40 MG in 0.9 % Sodium Chloride Mini Bag 100 ML IVC SCH ×4 (04:34→19:32)
[2021-08-18] MEDS ORDERED: 0.9 % Sodium Chloride 250 ML ONE ×3 (05:45→17:18)
[2021-08-18] MEDS ORDERED: Octreotide 400 MCG in 0.9 % Sodium Chloride 100 ML IVC SCH (08:15)
[2021-08-18 11:02] LABS: Bacteria,Urine Few per hpf (None-Few); Bilirubin,Urine Negative (Negative); Blood,Urine Negative (Negative); Clarity,Urine Clear (Clear); Color,Urine Light-Yellow (Yellow); Glucose,Urine (UA) Normal (Normal); Ketones,Urine Negative (Negative); Leukocyte Esterase,Urine Small (Negative); Mucus,Urine Few per lpf (None-Few); Nitrite,Urine Negative (Negative); Protein,Urine Negative (Neg-Trace); Specific Gravity,Urine 1.011 (1.010-1.025); Urobilinogen,Urine Normal (Normal)
[2021-08-18] MEDS: Furosemide 40 MG/4 ML VIAL IVP SCH ×2 (13:31→20:35)
[2021-08-18 14:15] LABS: Eosinophils # 0.2 K/mcL (0.0-0.6); Hematocrit 23.4 % (37.5-50.1); Mean Corpuscular HGB Conc 29.9 g/dL (31.6-35.5); Mean Corpuscular Hemoglobin 26.4 pg (28.0-33.3); Mean Corpuscular Volume 88.3 fL (83.0-100.0); Mean Platelet Volume 10.6 fL (9.4-12.4); Monocytes # 0.5 K/mcL (0.0-1.3); Platelet Count 116 K/mcL (140-400); Red Blood Count 2.65 M/mcL (4.19-5.50); White Blood Count 2.6 K/mcL (4.3-11.1)
[2021-08-18] MEDS: levETIRAcetam 250 MG TABLET PO SCH (14:25)
[2021-08-18 14:37] LABS: Basophils # 0.1 K/mcL (0.0-0.2); Lymphocytes # 0.4 K/mcL (0.6-4.6); Neutrophils # 1.5 K/mcL (1.6-8.9)
[2021-08-18 14:38] LABS: Platelet Estimate Slight Decrease (Normal)
[2021-08-18] MEDS: Octreotide 400 MCG in 0.9 % Sodium Chloride 100 ML IVC SCH (19:47)
[2021-08-18] MEDS: Lactulose Oral Soln 20 GM/30 ML UDC PO SCH (20:34)
[2021-08-18 23:27] LABS: Hemoglobin 7.9 g/dL (12.9-16.9)
[2021-08-19] MEDS: Pantoprazole 40 MG in 0.9 % Sodium Chloride Mini Bag 100 ML IVC SCH ×3 (00:17→10:22)
[2021-08-19] MEDS: levETIRAcetam 250 MG TABLET PO SCH ×2 (01:50→14:53)
[2021-08-19] MEDS: Octreotide 400 MCG in 0.9 % Sodium Chloride 100 ML IVC SCH ×2 (03:36→11:08)
[2021-08-19 06:14] LABS: Basophils % 1.7 %; Eosinophils # 0.2 K/mcL (0.0-0.6); Eosinophils % 8.6 %; Hematocrit 25.3 % (37.5-50.1); Hemoglobin 7.6 g/dL (12.9-16.9); Immature Granulocytes % 0.4 % (0-4); Lymphocytes % 23.6 %; Mean Corpuscular Hemoglobin 26.8 pg (28.0-33.3); Mean Corpuscular Volume 89.1 fL (83.0-100.0); Mean Platelet Volume 10.3 fL (9.4-12.4); Monocytes # 0.5 K/mcL (0.0-1.3); Monocytes % 19.7 %; Neutrophils # 1.1 K/mcL (1.6-8.9); Platelet Count 109 K/mcL (140-400); Red Blood Count 2.84 M/mcL (4.19-5.50); Red Cell Distribution Width 17.2 % (11.5-14.5); White Blood Count 2.3 K/mcL (4.3-11.1)
[2021-08-19 06:16] LABS: Lymphocytes # 0.5 K/mcL (0.6-4.6)
[2021-08-19 06:35] LABS: BUN/Creatinine Ratio 18 (6-26); Blood Urea Nitrogen 24 mg/dL (8-23); Calcium 7.5 mg/dL (8.6-10.3); Carbon Dioxide 24 mEq/L (23-29); Chloride 105 mEq/L (98-107); Glucose 107 mg/dL (70-105); Magnesium 1.7 mg/dL (1.6-2.6); Osmolality,Calculated 287 (280-300); Phosphorous 4.1 mg/dL (2.7-4.5); Potassium 3.6 mEq/L (3.5-5.1); Sodium 136 mEq/L (136-145); eGFR For African Americans > 60 (> 60); eGFR For Non-African Americans 54 (> 60)
[2021-08-19] MEDS: Furosemide 40 MG/4 ML VIAL IVP SCH (07:57)
[2021-08-19] MEDS: Lactulose Oral Soln 20 GM/30 ML UDC PO SCH ×2 (07:57→20:49)
[2021-08-19] MEDS ORDERED: *HR* Propofol 200 MG/20 ML VIAL IVP ONE (14:05)
[2021-08-19] MEDS ORDERED: Lidocaine -MPF 2% 5 ML VIAL ONE (14:05)
[2021-08-19] MEDS ORDERED: Nitroglycerin 0.4 MG TAB.SUBL SL PRN (21:26)
[2021-08-20] MEDS: levETIRAcetam 250 MG TABLET PO SCH ×2 (02:25→14:44)
[2021-08-20 07:25] LABS: Basophils % 1.3 %; Eosinophils # 0.2 K/mcL (0.0-0.6); Eosinophils % 6.6 %; Hematocrit 26.1 % (37.5-50.1); Hemoglobin 7.8 g/dL (12.9-16.9); Immature Granulocytes % 0.3 % (0-4); Lymphocytes # 0.6 K/mcL (0.6-4.6); Lymphocytes % 19.1 %; Mean Corpuscular HGB Conc 29.9 g/dL (31.6-35.5); Mean Corpuscular Hemoglobin 26.7 pg (28.0-33.3); Mean Corpuscular Volume 89.4 fL (83.0-100.0); Mean Platelet Volume 9.9 fL (9.4-12.4); Monocytes # 0.6 K/mcL (0.0-1.3); Monocytes % 19.5 %; Neutrophils # 1.6 K/mcL (1.6-8.9); Platelet Count 113 K/mcL (140-400); Red Blood Count 2.92 M/mcL (4.19-5.50); Red Cell Distribution Width 17.3 % (11.5-14.5); Segmented Neutrophils % 53.2 %
[2021-08-20 07:44] LABS: Platelet Estimate Normal (Normal); Polychromasia 1+ (Not Present)
[2021-08-20 07:46] LABS: BUN/Creatinine Ratio 20 (6-26); Blood Urea Nitrogen 22 mg/dL (8-23); Calcium 7.5 mg/dL (8.6-10.3); Carbon Dioxide 25 mEq/L (23-29); Chloride 103 mEq/L (98-107); Glucose 102 mg/dL (70-105); Magnesium 1.7 mg/dL (1.6-2.6); Osmolality,Calculated 280 (280-300); Potassium 3.4 mEq/L (3.5-5.1); Sodium 133 mEq/L (136-145); eGFR For African Americans > 60 (> 60); eGFR For Non-African Americans > 60 (> 60)
[2021-08-20 07:47] LABS: Anisocytosis 1+ (Not Present)
[2021-08-20] MEDS: Lactulose Oral Soln 20 GM/30 ML UDC PO SCH ×2 (08:13→20:36)
[2021-08-20] MEDS: Psyllium 1 PACKET POWD.PACK PO SCH (08:13)
[2021-08-20] MEDS: Aspirin Enteric Coated 81 MG Tablet PO SCH (08:13)
[2021-08-20] MEDS: Multivit/Ca/Min/Fe/FA 1 TAB TABLET PO SCH (08:13)
[2021-08-20] MEDS: Cholecalciferol (D-3) 1,000 UNIT (25MCG) TABLET PO SCH (08:13)
[2021-08-20] MEDS: Cyanocobalamin (B-12) 1,000 MCG TABLET PO SCH (08:14)
[2021-08-20] MEDS: Lactobacillus 1 EACH CAP.SPRINK PO SCH ×2 (08:14→20:36)
[2021-08-20] MEDS ORDERED: Finasteride 5 MG TABLET PO SCH (21:00)
[2021-08-20] MEDS ORDERED: Melatonin 3 MG TABLET PO SCH (21:00)
[2021-08-21] MEDS: levETIRAcetam 250 MG TABLET PO SCH ×2 (01:23→14:16)
[2021-08-21 05:57] LABS: Basophils % 0.6 %; Eosinophils # 0.3 K/mcL (0.0-0.6); Eosinophils % 8.9 %; Hematocrit 25.4 % (37.5-50.1); Hemoglobin 7.5 g/dL (12.9-16.9); Lymphocytes # 0.6 K/mcL (0.6-4.6); Lymphocytes % 19.3 %; Mean Corpuscular HGB Conc 29.5 g/dL (31.6-35.5); Mean Corpuscular Hemoglobin 26.7 pg (28.0-33.3); Mean Corpuscular Volume 90.4 fL (83.0-100.0); Mean Platelet Volume 9.9 fL (9.4-12.4); Monocytes # 0.5 K/mcL (0.0-1.3); Monocytes % 16.5 %; Neutrophils # 1.8 K/mcL (1.6-8.9); Platelet Count 119 K/mcL (140-400); Red Blood Count 2.81 M/mcL (4.19-5.50); Red Cell Distribution Width 17.7 % (11.5-14.5); Segmented Neutrophils % 54.7 %; White Blood Count 3.3 K/mcL (4.3-11.1)
[2021-08-21 06:15] LABS: BUN/Creatinine Ratio 18 (6-26); Blood Urea Nitrogen 19 mg/dL (8-23); Calcium 7.4 mg/dL (8.6-10.3); Carbon Dioxide 25 mEq/L (23-29); Chloride 106 mEq/L (98-107); Glucose 106 mg/dL (70-105); Magnesium 1.9 mg/dL (1.6-2.6); Osmolality,Calculated 281 (280-300); Potassium 3.5 mEq/L (3.5-5.1); Sodium 134 mEq/L (136-145); eGFR For African Americans > 60 (> 60); eGFR For Non-African Americans > 60 (> 60)
[2021-08-21 07:12] VITALS: O2SAT 99
[2021-08-21] MEDS: Multivit/Ca/Min/Fe/FA 1 TAB TABLET PO SCH (07:27)
[2021-08-21] MEDS: Lactobacillus 1 EACH CAP.SPRINK PO SCH (07:27)
[2021-08-21] MEDS: Cholecalciferol (D-3) 1,000 UNIT (25MCG) TABLET PO SCH (07:27)
[2021-08-21] MEDS: Lactulose Oral Soln 20 GM/30 ML UDC PO SCH (07:27)
[2021-08-21] MEDS: Aspirin Enteric Coated 81 MG Tablet PO SCH (07:27)
[2021-08-21] MEDS: Cyanocobalamin (B-12) 1,000 MCG TABLET PO SCH (07:27)
[2021-08-21] MEDS: Psyllium 1 PACKET POWD.PACK PO SCH (07:29)
[2021-08-21] MEDS ORDERED: Furosemide 40 MG/4 ML VIAL IVP ONE (09:05)
[2021-08-21] MEDS ORDERED: Iron Sucrose Complex 200 MG in 0.9 % Sodium Chloride 100 ML IVPB SCH (09:15)
[2021-08-21 10:49] VITALS: BP 125/62; PULSE 52; TEMP 97.5
== END 2021-08-21 16:55 | disposition home health service (06) | DRG 377 ==
LOC: 3NENU → SUATTDRO 21:59
PROVIDERS: ADMIT General Practice; ATTEND Pharmacist

== ENCOUNTER 2021-11-28 11:53 | Inpatient (IN) ==
[2021-11-28] MEDS ORDERED: Pantoprazole 40 MG VIAL IVP SCH (14:29)
[2021-11-28] MEDS ORDERED: Ondansetron ODT 4 MG TAB.RAPDIS SL PRN (14:41)
[2021-11-28] MEDS ORDERED: Naloxone 0.4 MG/ML INJ IVP PRN (14:41)
[2021-11-28] MEDS ORDERED: 0.9 % Sodium Chloride 1,000 ML IVC SCH (14:45)
[2021-11-28] MEDS ORDERED: Albumin 25% 25gram/100mL 25 GM/100 ML IV.SOLN IVPB ONE (16:30)
[2021-11-28 16:40] LABS: Basophils % 1.3 %; Eosinophils # 0.2 K/mcL (0.0-0.6); Eosinophils % 7.4 %; Hematocrit 17.3 % (37.5-50.1); Immature Granulocytes % 0.3 % (0-4); Lymphocytes % 32.7 %; Mean Corpuscular HGB Conc 28.9 g/dL (31.6-35.5); Mean Corpuscular Hemoglobin 24.8 pg (28.0-33.3); Mean Corpuscular Volume 85.6 fL (83.0-100.0); Mean Platelet Volume 10.7 fL (9.4-12.4); Monocytes # 0.5 K/mcL (0.0-1.3); Monocytes % 16.2 %; Neutrophils # 1.3 K/mcL (1.6-8.9); Platelet Count 147 K/mcL (140-400); Red Blood Count 2.02 M/mcL (4.19-5.50); Red Cell Distribution Width 16.8 % (11.5-14.5); Segmented Neutrophils % 42.1 %
[2021-11-28] MEDS ORDERED: 0.9 % Sodium Chloride 250 ML IVC SCH (17:00)
[2021-11-28] MEDS: Pantoprazole 40 MG in 0.9 % Sodium Chloride Mini Bag 100 ML IVC SCH ×2 (17:14→22:50)
[2021-11-28] MEDS: Octreotide 400 MCG in 0.9 % Sodium Chloride 100 ML IVC SCH (17:29)
[2021-11-28] MEDS: Lactulose Oral Soln 20 GM/30 ML UDC PO SCH (20:41)
[2021-11-28] MEDS: Furosemide 20 MG/2 ML VIAL IVP ONE (20:41)
[2021-11-29 04:03] LABS: Hematocrit 19.9 % (37.5-50.1); Mean Corpuscular Volume 86.9 fL (83.0-100.0); Mean Platelet Volume 10.2 fL (9.4-12.4); Red Blood Count 2.29 M/mcL (4.19-5.50)
[2021-11-29 04:04] LABS: Mean Corpuscular HGB Conc 29.1 g/dL (31.6-35.5); Mean Corpuscular Hemoglobin 25.3 pg (28.0-33.3); Platelet Count 141 K/mcL (140-400); Red Cell Distribution Width 16.7 % (11.5-14.5); White Blood Count 3.4 K/mcL (4.3-11.1)
[2021-11-29 04:26] LABS: Albumin 3.1 g/dL (3.5-5.7); Albumin/Globulin Ratio 0.8 (1.1-2.2); Bilirubin,Total 1.5 mg/dL (0.3-1.0); Calcium 8.1 mg/dL (8.6-10.3); Potassium 4.3 mEq/L (3.5-5.1); Total Protein 7.1 g/dL (6.4-8.9)
[2021-11-29 04:27] LABS: Hemoglobin 5.8 g/dL (12.9-16.9)
[2021-11-29] MEDS: Pantoprazole 40 MG in 0.9 % Sodium Chloride Mini Bag 100 ML IVC SCH ×4 (04:30→20:12)
[2021-11-29] MEDS ORDERED: Benzonatate 100 MG CAPSULE PO PRN (04:47)
[2021-11-29 04:54] LABS: Vitamin B12 > 1500 pg/mL (250-1100)
[2021-11-29] MEDS: Lactulose Oral Soln 20 GM/30 ML UDC PO SCH ×2 (10:15→21:01)
[2021-11-29] MEDS ORDERED: 0.9 % Sodium Chloride 250 ML ONE (13:31)
[2021-11-29] MEDS ORDERED: Furosemide 20 MG/2 ML VIAL IVP ONE (14:50)
[2021-11-29] MEDS ORDERED: levETIRAcetam 250 MG TABLET PO SCH ×2 (15:00→18:00)
[2021-11-29] MEDS: Octreotide 400 MCG in 0.9 % Sodium Chloride 100 ML IVC SCH ×3 (15:04→16:02)
[2021-11-29] MEDS: Albumin 25% 25gram/100mL 25 GM/100 ML IV.SOLN IVPB SCH (16:45)
[2021-11-29 17:26] LABS: Basophils % 1.4 %; Eosinophils # 0.2 K/mcL (0.0-0.6); Eosinophils % 5.6 %; Hematocrit 23.6 % (37.5-50.1); Immature Granulocytes % 0.3 % (0-4); Lymphocytes # 0.7 K/mcL (0.6-4.6); Lymphocytes % 22.7 %; Mean Corpuscular HGB Conc 29.7 g/dL (31.6-35.5); Mean Corpuscular Hemoglobin 25.7 pg (28.0-33.3); Mean Corpuscular Volume 86.8 fL (83.0-100.0); Mean Platelet Volume 9.9 fL (9.4-12.4); Monocytes # 0.5 K/mcL (0.0-1.3); Monocytes % 17.8 %; Neutrophils # 1.5 K/mcL (1.6-8.9); Platelet Count 127 K/mcL (140-400); Red Blood Count 2.72 M/mcL (4.19-5.50); Red Cell Distribution Width 16.3 % (11.5-14.5); Segmented Neutrophils % 52.2 %; White Blood Count 2.9 K/mcL (4.3-11.1)
[2021-11-29 17:33] LABS: INR 1.5; Prothrombin Time 16.3 Seconds (9.4-12.1)
[2021-11-29] MEDS ORDERED: Lidocaine -MPF 2% 2 ML VIAL ONE (17:48)
[2021-11-29] MEDS ORDERED: *HR* Succinylcholine 200 MG/10 ML VIAL IVP ONE (17:48)
[2021-11-29] MEDS ORDERED: *HR* Propofol 200 MG/20 ML VIAL IVP ONE (17:50)
[2021-11-29 18:32] LABS: Bacteria,Urine Moderate per hpf (None-Few); Bilirubin,Urine Negative (Negative); Blood,Urine Negative (Negative); Clarity,Urine Clear (Clear); Color,Urine Light-Yellow (Yellow); Glucose,Urine (UA) Normal (Normal); Ketones,Urine Negative (Negative); Leukocyte Esterase,Urine Large (Negative); Mucus,Urine Few per lpf (None-Few); Nitrite,Urine Negative (Negative); Protein,Urine Trace mg/dL (Neg-Trace); RBC,Urine 0-3 per hpf (0-3); Specific Gravity,Urine 1.016 (1.010-1.025); Urobilinogen,Urine Normal (Normal); WBC,Urine 30-50 per hpf (0-3)
[2021-11-29] MEDS: Furosemide 20 MG/2 ML VIAL IVP ONE (18:44)
[2021-11-29 18:54] LABS: Protein/Creatinine Ratio,Urine 0.19 mg/mg (0.00-0.20); Sodium, Urine 27.9 mEq/L
[2021-11-29] MEDS ORDERED: levETIRAcetam 250 MG in 0.9 % Sodium Chloride 100 ML IVPB ONE (20:17)
[2021-11-29] MEDS: Melatonin 3 MG TABLET PO PRN (21:00)
[2021-11-29] MEDS: Finasteride 5 MG TABLET PO SCH (21:01)
[2021-11-30] MEDS: Albumin 25% 25gram/100mL 25 GM/100 ML IV.SOLN IVPB SCH ×3 (00:50→16:17)
[2021-11-30] MEDS: Pantoprazole 40 MG in 0.9 % Sodium Chloride Mini Bag 100 ML IVC SCH ×4 (00:50→17:11)
[2021-11-30] MEDS ORDERED: Morphine Sulfate 2 MG/ML SYRINGE IVP ONE ×2 (02:33→12:13)
[2021-11-30 03:27] LABS: Hematocrit 24.3 % (37.5-50.1); Hemoglobin 7.2 g/dL (12.9-16.9); Mean Corpuscular HGB Conc 29.6 g/dL (31.6-35.5); Mean Corpuscular Hemoglobin 25.8 pg (28.0-33.3); Mean Corpuscular Volume 87.1 fL (83.0-100.0); Mean Platelet Volume 10.3 fL (9.4-12.4); Platelet Count 137 K/mcL (140-400); Red Blood Count 2.79 M/mcL (4.19-5.50); Red Cell Distribution Width 16.4 % (11.5-14.5); White Blood Count 3.2 K/mcL (4.3-11.1)
[2021-11-30 03:45] LABS: Potassium 4.1 mEq/L (3.5-5.1)
[2021-11-30] MEDS: Octreotide 400 MCG in 0.9 % Sodium Chloride 100 ML IVC SCH ×2 (05:21→11:54)
[2021-11-30] MEDS ORDERED: Pantoprazole 40 MG in 0.9 % Sodium Chloride Mini Bag 100 ML IVC SCH ×2 (06:00→07:45)
[2021-11-30] MEDS: Cyanocobalamin (B-12) 1,000 MCG TABLET PO SCH (08:06)
[2021-11-30] MEDS: Lactulose Oral Soln 20 GM/30 ML UDC PO SCH ×2 (08:06→20:09)
[2021-11-30 10:08] LABS: ABG Base Excess -4 mEq/L (-2 to 3); ABG HCO3 21 mEq/L (21-27); ABG Oxygen Saturation 97 % (95-98); ABG PCO2 36 mmHg (35-45); ABG PH 7.37 pH Units (7.32-7.45); ABG PO2 97 mmHg (85-104); ABG TCO2 22 mEq/L (20-26); Blood Gas FiO2 2.5 (1-15=lpm or21-100=%)
[2021-11-30] MEDS ORDERED: Octreotide 400 MCG in 0.9 % Sodium Chloride 100 ML IVC SCH (12:00)
[2021-11-30] MEDS ORDERED: Ipratropium/Albuterol Neb 3 ML IH PRN (12:14)
[2021-11-30] MEDS ORDERED: *HR* Heparin 5,000 UNIT/ML VIAL IVP ONE (12:35)
[2021-11-30] MEDS ORDERED: *HR* Heparin 5,000 UNIT/ML VIAL IVP PRN ×2 (12:35)
[2021-11-30] MEDS: Ipratropium 1 PUFF INHALER IH PRN (12:45)
[2021-11-30] MEDS: Heparin 25,000UNIT/250ML 1/2NS 25,000 UNIT/250 ML IV.SOLN IVC SCH (13:38)
[2021-11-30 14:29] LABS: Heparin anti-factor XA UFH < 0.04 IU/mL (0.30-0.70); INR 1.5
[2021-11-30] MEDS: Finasteride 5 MG TABLET PO SCH (20:08)
[2021-11-30] MEDS: Nystatin POWDER 30 GM BOTTLE TP SCH (20:09)
[2021-12-01] MEDS: Albumin 25% 25gram/100mL 25 GM/100 ML IV.SOLN IVPB SCH ×3 (00:34→15:45)
[2021-12-01 03:09] LABS: Heparin anti-factor XA UFH 0.52 IU/mL (0.30-0.70)
[2021-12-01 03:10] LABS: INR 1.6; Prothrombin Time 17.5 Seconds (9.4-12.1)
[2021-12-01] MEDS: Heparin 25,000UNIT/250ML 1/2NS 25,000 UNIT/250 ML IV.SOLN IVC SCH ×2 (05:23→06:48)
[2021-12-01 07:17] LABS: Mean Corpuscular HGB Conc 28.6 g/dL (31.6-35.5)
[2021-12-01 07:19] LABS: Hematocrit 24.1 % (37.5-50.1); Hemoglobin 6.9 g/dL (12.9-16.9); Mean Corpuscular Hemoglobin 25.6 pg (28.0-33.3); Mean Corpuscular Volume 89.3 fL (83.0-100.0); Mean Platelet Volume 9.9 fL (9.4-12.4); Platelet Count 142 K/mcL (140-400); Red Cell Distribution Width 17.1 % (11.5-14.5); White Blood Count 4.1 K/mcL (4.3-11.1)
[2021-12-01 07:38] LABS: Calcium 8.7 mg/dL (8.6-10.3); Potassium 4.2 mEq/L (3.5-5.1)
[2021-12-01] MEDS: Nystatin POWDER 30 GM BOTTLE TP SCH ×2 (08:52→21:14)
[2021-12-01] MEDS: Lactulose Oral Soln 20 GM/30 ML UDC PO SCH ×2 (08:52→21:14)
[2021-12-01] MEDS: Cyanocobalamin (B-12) 1,000 MCG TABLET PO SCH (08:52)
[2021-12-01] MEDS ORDERED: 0.9 % Sodium Chloride 250 ML IVC SCH (09:15)
[2021-12-01] MEDS ORDERED: Acetylcysteine 10% 2 ML INHSOL IH SCH (12:00)
[2021-12-01] MEDS: Ertapenem 1,000 MG in 0.9 % Sodium Chloride Mini Bag 100 ML IVPB SCH (13:05)
[2021-12-01 19:12] LABS: Hematocrit 24.3 % (37.5-50.1); Hemoglobin 7.2 g/dL (12.9-16.9)
[2021-12-01] MEDS: Ipratropium 1 PUFF INHALER IH PRN (20:35)
[2021-12-01] MEDS: Finasteride 5 MG TABLET PO SCH (21:15)
[2021-12-02] MEDS: Albumin 25% 25gram/100mL 25 GM/100 ML IV.SOLN IVPB SCH ×4 (00:11→23:12)
[2021-12-02 04:55] LABS: Hematocrit 23.8 % (37.5-50.1); Mean Corpuscular HGB Conc 29.4 g/dL (31.6-35.5); Mean Corpuscular Hemoglobin 26.2 pg (28.0-33.3); Mean Corpuscular Volume 89.1 fL (83.0-100.0); Mean Platelet Volume 10.1 fL (9.4-12.4); Platelet Count 122 K/mcL (140-400); Red Blood Count 2.67 M/mcL (4.19-5.50); Red Cell Distribution Width 17.2 % (11.5-14.5); White Blood Count 4.2 K/mcL (4.3-11.1)
[2021-12-02 05:13] LABS: Calcium 8.5 mg/dL (8.6-10.3); Potassium 3.8 mEq/L (3.5-5.1)
[2021-12-02] MEDS: Cyanocobalamin (B-12) 1,000 MCG TABLET PO SCH (08:53)
[2021-12-02] MEDS: Lactulose Oral Soln 20 GM/30 ML UDC PO SCH ×2 (08:54→20:30)
[2021-12-02] MEDS: Benzonatate 100 MG CAPSULE PO SCH ×3 (08:54→20:30)
[2021-12-02] MEDS: Nystatin POWDER 30 GM BOTTLE TP SCH ×2 (08:54→20:31)
[2021-12-02] MEDS: Ertapenem 1,000 MG in 0.9 % Sodium Chloride Mini Bag 100 ML IVPB SCH (12:34)
[2021-12-02] MEDS: Finasteride 5 MG TABLET PO SCH (20:30)
[2021-12-02] MEDS: Melatonin 3 MG TABLET PO PRN (20:30)
[2021-12-03] MEDS: Lactulose Oral Soln 20 GM/30 ML UDC PO SCH ×2 (08:38→21:46)
[2021-12-03] MEDS: Albumin 25% 25gram/100mL 25 GM/100 ML IV.SOLN IVPB SCH ×2 (08:38→15:50)
[2021-12-03] MEDS: Benzonatate 100 MG CAPSULE PO SCH ×3 (08:38→21:46)
[2021-12-03] MEDS: Cyanocobalamin (B-12) 1,000 MCG TABLET PO SCH (08:39)
[2021-12-03] MEDS: Nystatin POWDER 30 GM BOTTLE TP SCH ×2 (08:39→21:46)
[2021-12-03 13:52] LABS: Hemoglobin 7.2 g/dL (12.9-16.9); Red Cell Distribution Width 17.8 % (11.5-14.5)
[2021-12-03 13:53] LABS: Hematocrit 24.4 % (37.5-50.1); Immature Platelets 3.5 % (1.1-6.1); Mean Corpuscular HGB Conc 29.5 g/dL (31.6-35.5); Mean Corpuscular Hemoglobin 26.4 pg (28.0-33.3); Mean Corpuscular Volume 89.4 fL (83.0-100.0); Mean Platelet Volume 9.6 fL (9.4-12.4); Red Blood Count 2.73 M/mcL (4.19-5.50)
[2021-12-03 14:11] LABS: Potassium 3.7 mEq/L (3.5-5.1)
[2021-12-03] MEDS: Ertapenem 1,000 MG in 0.9 % Sodium Chloride Mini Bag 100 ML IVPB SCH (15:50)
[2021-12-03] MEDS: Finasteride 5 MG TABLET PO SCH (21:47)
[2021-12-03] MEDS: Melatonin 3 MG TABLET PO PRN (21:47)
[2021-12-04] MEDS: Albumin 25% 25gram/100mL 25 GM/100 ML IV.SOLN IVPB SCH ×4 (00:50→23:01)
[2021-12-04 05:22] LABS: Hematocrit 25.8 % (37.5-50.1); Hemoglobin 7.7 g/dL (12.9-16.9); Mean Corpuscular HGB Conc 29.8 g/dL (31.6-35.5); Mean Corpuscular Hemoglobin 26.4 pg (28.0-33.3); Mean Corpuscular Volume 88.4 fL (83.0-100.0); Mean Platelet Volume 10.6 fL (9.4-12.4); Platelet Count 119 K/mcL (140-400); Red Blood Count 2.92 M/mcL (4.19-5.50); Red Cell Distribution Width 18.2 % (11.5-14.5); White Blood Count 3.7 K/mcL (4.3-11.1)
[2021-12-04 05:42] LABS: Calcium 9.4 mg/dL (8.6-10.3); Potassium 3.9 mEq/L (3.5-5.1)
[2021-12-04] MEDS: Lactulose Oral Soln 20 GM/30 ML UDC PO SCH ×2 (08:22→19:29)
[2021-12-04] MEDS: Cyanocobalamin (B-12) 1,000 MCG TABLET PO SCH (08:22)
[2021-12-04] MEDS: Benzonatate 100 MG CAPSULE PO SCH (08:23)
[2021-12-04] MEDS: Nystatin POWDER 30 GM BOTTLE TP SCH ×2 (08:24→19:30)
[2021-12-04] MEDS: Ertapenem 1,000 MG in 0.9 % Sodium Chloride Mini Bag 100 ML IVPB SCH (13:18)
[2021-12-04] MEDS: Benzonatate 100 MG CAPSULE PO PRN (15:53)
[2021-12-04] MEDS: Finasteride 5 MG TABLET PO SCH (19:30)
[2021-12-05] MEDS: Benzonatate 100 MG CAPSULE PO PRN ×2 (05:33→16:14)
[2021-12-05] MEDS: Cyanocobalamin (B-12) 1,000 MCG TABLET PO SCH (08:20)
[2021-12-05] MEDS: Nystatin POWDER 30 GM BOTTLE TP SCH ×2 (08:20→20:31)
[2021-12-05] MEDS: Lactulose Oral Soln 20 GM/30 ML UDC PO SCH ×2 (08:20→20:31)
[2021-12-05] MEDS: Albumin 25% 25gram/100mL 25 GM/100 ML IV.SOLN IVPB SCH ×2 (08:22→16:13)
[2021-12-05 08:40] LABS: Hematocrit 24.6 % (37.5-50.1); Hemoglobin 7.4 g/dL (12.9-16.9); Mean Corpuscular HGB Conc 30.1 g/dL (31.6-35.5); Mean Corpuscular Hemoglobin 26.7 pg (28.0-33.3); Mean Corpuscular Volume 88.8 fL (83.0-100.0); Red Blood Count 2.77 M/mcL (4.19-5.50)
[2021-12-05 08:42] LABS: Immature Platelets 2.6 % (1.1-6.1); Mean Platelet Volume 9.1 fL (9.4-12.4); Red Cell Distribution Width 18.5 % (11.5-14.5); White Blood Count 3.8 K/mcL (4.3-11.1)
[2021-12-05 09:02] LABS: Calcium 9.5 mg/dL (8.6-10.3); Potassium 3.5 mEq/L (3.5-5.1)
[2021-12-05] MEDS: Ertapenem 1,000 MG in 0.9 % Sodium Chloride Mini Bag 100 ML IVPB SCH (12:42)
[2021-12-05] MEDS: Finasteride 5 MG TABLET PO SCH (20:31)
[2021-12-05] MEDS: Benzonatate 100 MG CAPSULE PO SCH (20:31)
[2021-12-05] MEDS ORDERED: *HR* Metoprolol 5 MG/5 ML VIAL IVP ONE (22:18)
[2021-12-06] MEDS: Lactulose Oral Soln 20 GM/30 ML UDC PO SCH (08:03)
[2021-12-06] MEDS: Benzonatate 100 MG CAPSULE PO SCH ×2 (08:14→14:54)
[2021-12-06] MEDS: Cyanocobalamin (B-12) 1,000 MCG TABLET PO SCH (08:14)
[2021-12-06] MEDS: Nystatin POWDER 30 GM BOTTLE TP SCH (09:15)
[2021-12-06] MEDS: Ipratropium 1 PUFF INHALER IH PRN (10:44)
[2021-12-06 12:05] VITALS: BP 146/76; PULSE 62; TEMP 99.3; O2SAT 97
[2021-12-06 13:57] LABS: Hematocrit 24.3 % (37.5-50.1); Hemoglobin 7.3 g/dL (12.9-16.9); Immature Platelets 3.1 % (1.1-6.1); Mean Corpuscular Hemoglobin 26.7 pg (28.0-33.3); Mean Platelet Volume 9.9 fL (9.4-12.4); Red Blood Count 2.73 M/mcL (4.19-5.50); Red Cell Distribution Width 18.8 % (11.5-14.5); White Blood Count 3.3 K/mcL (4.3-11.1)
[2021-12-06 14:12] LABS: Calcium 9.7 mg/dL (8.6-10.3); Potassium 3.8 mEq/L (3.5-5.1)
== END 2021-12-06 15:35 | DRG 432 ==
LOC: SUATTDRO 13:22 → 2NNU 13:22 → 2ANU 12-04 15:09
PROVIDERS: ADMIT Internal Medicine; ATTEND Student in an Organized Health Care Education/Training Program